=== PATIENT | male | born 1945 | race Two or more races ===

== ENCOUNTER 2016-06-28 18:58 | Inpatient (IN) | payer MEDICARE ==
[~2016-06-28] VITALS: Ht 170.2 cm; Wt 63.5 kg
[2016-06-28 20:53] VITALS: BP 110/84
[2016-06-28] MEDS ORDERED: DOCU-109 PO (22:08)
[2016-06-28] MEDS ORDERED: DEXA4TAB PO (22:10)
[2016-06-28] MEDS ORDERED: DONE10TA61 PO (22:13)
[2016-06-28] MEDS ORDERED: ESCI20TA PO (22:14)
[2016-06-28] MEDS ORDERED: OMEP40CA5 PO (22:15)
[2016-06-28] MEDS ORDERED: RANI15SY PO (22:17)
[2016-06-28] MEDS ORDERED: ACET325T9 PO (22:18)
[2016-06-28] MEDS ORDERED: DICY10CA3 PO (22:22)
[2016-06-28] MEDS ORDERED: HYOS0.3715 PO (22:31)
[2016-06-28] MEDS ORDERED: LORA1TAB PO (22:31)
[2016-06-28] MEDS ORDERED: QUET50TA5 PO (22:36)
[2016-06-28] MEDS ORDERED: BUSP7.5T PO (22:41)
[2016-06-28] MEDS ORDERED: ALPR0.5T6 PO (22:42)
[2016-06-28] MEDS ORDERED: METHYL SALICYLATE/MENTHOL TOPICAL OINTMENT 29GM TUBE. TP PRN (23:15)
--- NOTE | 2016-06-28 23:40 | PDOC ---
Exam Tor Demential Exam: Tor Note: Please also refer to the separate dictated note~for this date of service dictated separately.~Patient seen individually. Discussed the patient with Nursing staff reviewed the chart.~Reviewed interim history and current functioning. Reviewed vital signs,~Labs/ Radiology~and current medications noted below. Continue current treatment with the changes noted in the dictated addendum note Assessment: Vital Signs: Vital Signs Date Time Temp Pulse Resp B/P Pulse Ox O2 Delivery O2 Flow Rate FiO2 06/28/16 20:53 97.8 66 20 110/84 99 Room Air Current Medications: Meds: Current Medications Alprazolam (Xanax) 0.5 mg PRN Q6HRS PRN PO ANXIETY / AGITATION; Start 06/28/16 at 23:15 Donepezil HCl (Aricept) 20 mg DAILY PO ; Start 06/29/16 at 09:00 Escitalopram Oxalate (Lexapro) 20 mg DAILY PO ; Start 06/29/16 at 09:00 Lorazepam (Ativan) 1 mg PRN Q4HRS PRN PO ANXIETY / AGITATION; Start 06/28/16 at 23:15 Quetiapine Fumarate (SEROquel) 50 mg TID PO ; Start 06/29/16 at 09:00 Buspirone HCl (Buspar) 7.5 mg BID PO ; Start 06/29/16 at 09:00 Multi-Ingredient Ointment (Analgesic [place]) 1 neil PRN QID PRN TP MUSCLE PAIN; Start 06/28/16 at 23:15 Active Scripts Active Reported Alprazolam 0.5 Mg Tablet 0.5 Mg PO PRN Q6HRS PRN LAST DOSE GIVEN: DATE: TIME: NEXT DOSE DUE: DATE: TIME: Buspirone Hcl 7.5 Mg Tablet 7.5 Mg PO BID LAST DOSE GIVEN: DATE: TIME: NEXT DOSE DUE: DATE: TIME: Seroquel (Quetiapine Fumarate) 50 Mg Tablet 50 Mg PO TID LAST DOSE GIVEN: DATE: TIME: NEXT DOSE DUE: DATE: TIME: Levbid (Hyoscyamine Sulfate) 0.375 Mg Tab.er.12h 0.125 Mg PO Q2HR PRN Lorazepam 1 Mg Tablet 1 Mg PO Q4HRS PRN LAST DOSE GIVEN: DATE: TIME: NEXT DOSE DUE: DATE: TIME: Dicyclomine Hcl 10 Mg Capsule 10 Mg PO TID PRN Tylenol (Acetaminophen) 325 Mg Tablet 650 Mg PO Q6HRS PRN LAST DOSE GIVEN: DATE: TIME: NEXT DOSE DUE: DATE: TIME: Ranitidine Hcl 15 Mg/1 Ml Syrup 75 Mg PO DAILY Omeprazole 40 Mg Capsule.dr 40 Mg PO DAILY Escitalopram Oxalate 20 Mg Tablet 20 Mg PO DAILY Aricept (Donepezil Hcl) 10 Mg Tablet 20 Mg PO DAILY Dexamethasone 4 Mg Tablet 4 Mg PO DAILY Colace (Docusate Sodium) 100 Mg Capsule 50 Mg PO BID MARJ FELICIANO MD Jun 28, 2016 23:40
--- NOTE | 2016-06-28 23:54 | NUR ---
Admission: Pt [place] Gomez arrived on the unit via gurney with [facility] accompanied by staff at approximately 2030. Pt was very agitated and combative. Pt alert to self only. Pt placed in [place] until he was able to calm himself. Pt was was taken to the restroom and then given a snack and watched very closely until he was able to calm himself. Pt was allowed to fall asleep in the quiet room just off the [address] with the door open as he is more comfortable with fewer people around. Pt is resting quietly at this time. Will continue to monitor.
--- NOTE | 2016-06-29 03:19 | NUR ---
Behavior Intervention Response and Plan: BIRP Note: Behavior: Assumed Care of patient, patient located in Hallway at shift change. Patient exhibited the following behavior Agitated, Disorganized, Irritable. Brief assessment on rounds of vital signs, medication needs, lab studies, and pain. Treatment plan problems Dementia with BD, and Fall Risk. Intervention: Patient assessed and the following interventions initiated safety checks 15 Minute Checks Cognitive Assessment , Head to toe Assessment , Medications. Response: After interactions and interventions patient responded in the following manner, Sleeping , Disorganized ,Drowsy. Continue to assess behaviors and condition will continue to monitor throughout the shift as needed. Plan: Continue to monitor Master Treatment Plan for patient's progress toward short term goals of Decreased Aggression, Decreased Agitation, shelter goals to return to previous living setting vs placement. Continue to assess patient for changes in above assessment. Monitor for medication needs, pain, and safety concerns. Hourly rounding performed to ensure safe environment.
[2016-06-29] MEDS: ALPRAZolam 0.5 MG TABLET PO PRN (05:41)
--- NOTE | 2016-06-29 05:46 | NUR ---
Nursing Note: Pt agitated when he awoke. Resistive with cares. PRN given Will continue to monitor.
[2016-06-29 06:08] VITALS: BP 148/84
[2016-06-29] MEDS ORDERED: DICYCLOMINE HCL 10 MG CAPSULE PO PRN (07:15)
[2016-06-29] MEDS ORDERED: ACETAMINOPHEN 325 MG TABLET PO PRN (07:15)
[2016-06-29] MEDS ORDERED: HYOSCYAMINE 0.125 MG TAB.RAPDIS PO PRN (07:30)
--- NOTE | 2016-06-29 10:00 | NUR ---
THERAPEUTIC RECREATION GROUP NOTE TITLE :Butterflies and Roll Operator Art ACTIVITY : Arts and Crafts GOAL : Increase socialization, fine motor skills, creativity DURATION : 30 minutes RESPONSE : No participation.
[2016-06-29] MEDS: PANTOPRAZOLE 40 MG TABLET. PO SCH (10:01)
[2016-06-29] MEDS: busPIRone 5 MG TABLET. PO SCH ×2 (10:01→21:34)
[2016-06-29] MEDS: DOCUSATE SODIUM 100 MG CAPSULE PO SCH (10:01)
[2016-06-29] MEDS: DONEPEZIL HCL 10 MG TABLET PO SCH (10:01)
[2016-06-29] MEDS: ESCITALOPRAM 20 MG TABLET. PO SCH (10:02)
[2016-06-29] MEDS: FAMOTIDINE 20 MG TABLET PO SCH (10:02)
[2016-06-29] MEDS: QUEtiapine 50 MG TABLET. PO SCH ×3 (10:02→21:33)
[2016-06-29] MEDS: DEXAMETHASONE 4 MG TABLET PO SCH (10:03)
[2016-06-29 10:24] LABS: BASO # 0.1 x10^3/uL (0.0-0.2); BASO % 1 % (0-3); EOS % 0 % (0-3); HEMATOCRIT 35.2 % (39.0-53.0); HEMOGLOBIN 11.5 g/dL (13.0-17.5); LYMPH % 17 % (24-48); MEAN CORPUSCULAR HEMOGLOBIN 32 pg (25-35); MEAN CORPUSCULAR HGB CONC 33 g/dL (31-37); MEAN CORPUSCULAR VOLUME 99 fL (79-100); MONO # 0.8 x10^3/uL (0.0-1.1); MONO % 7 % (0-9); NEUT # 8.5 x10^3uL (1.8-7.7); NEUT % 75 % (31-73); PLATELET COUNT 195 x10^3/uL (140-400); RED BLOOD COUNT 3.56 x10^6/uL (4.30-5.70); RED CELL DISTRIBUTION WIDTH 15.5 % (11.5-14.5); WHITE BLOOD COUNT 11.4 x10^3/uL (4.0-11.0)
[2016-06-29 10:53] LABS: ALBUMIN 2.7 g/dL (3.4-5.0); ALBUMIN/GLOBULIN RATIO 0.7 (1.0-1.7); CALCIUM 8.6 mg/dL (8.5-10.1); GFR 74.1; POTASSIUM 4.2 mmol/L (3.5-5.1); TOTAL BILIRUBIN 0.3 mg/dL (0.2-1.0); TOTAL PROTEIN 6.7 g/dL (6.4-8.2)
[2016-06-29 10:55] LABS: VAL ACID 4 mcg/mL (50-100)
--- NOTE | 2016-06-29 11:15 | NUR ---
THERAPEUTIC RECREATION GROUP NOTE TITLE :Movement to Music: Flexibility ACTIVITY : Movement/ Exercise GOAL : Increase morale, attention, flexibility. Decrease stress/anxiety. DURATION : 40 Minutes RESPONSE : No participation.
--- NOTE | 2016-06-29 12:09 | NUR ---
Psychosocial Assessment completed w/Pt's , Selvin. Pt. born in [place], [place] and family moved throughout [place] during his childhood. Pt. grew up w/ a brother, sister and 1/2 brother. PT's parents due to father's alcoholism and Pt. went and lived w/his aunt and uncle for a year before returning to reside w/his mother. Pt. 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 PT. is to Selvin for 48+ years and has one son named Romie. Pt. has no history of alcohol or substance abuse or SI. Pt. diagnosed w/Dementia in 2008 and resided at home until March 2016 where he transitioned to [place].
--- NOTE | 2016-06-29 12:12 | NUR ---
SW reviewed Pt. insurance upon admit. Face sheet, CSNAP and intake state Pt has Medicare Primary and AARP secondary. No auth required.
--- NOTE | 2016-06-29 13:19 | NUR ---
Behavior Intervention Response and Plan: BIRP Note: Behavior: Assumed Care of patient, patient located in Hallway at shift change. Patient exhibited the following behavior Wandering, Exit Seeking, Compliant. Brief assessment on rounds of vital signs, medication needs, lab studies, and pain. Treatment plan problems . Intervention: Patient assessed and the following interventions initiated safety checks 15 Minute Checks Cognitive Assessment , Head to toe Assessment , Medications. Response: After interactions and interventions patient responded in the following manner, Calm , Compliant ,Cooperative. Continue to assess behaviors and condition will continue to monitor throughout the shift as needed. Plan: Continue to monitor Master Treatment Plan for patient's progress toward short term goals of Decreased Anxiety, Decreased Aggression, retirement goals to return to previous living setting vs placement. Continue to assess patient for changes in above assessment. Monitor for medication needs, pain, and safety concerns. Hourly rounding performed to ensure safe environment.
--- NOTE | 2016-06-29 14:00 | NUR ---
THERAPEUTIC RECREATION GROUP NOTE TITLE :Sing along with Dilcia ACTIVITY : Music GOAL : Increase socialization, elevate mood, stimulate memory DURATION : 60 Minutes RESPONSE : No participation.
[2016-06-29 16:07] VITALS: BP 148/75
[2016-06-29 19:09] LABS: T3 TOTAL 93 ng/dL (71-180); THYROXINE 4.9 ug/dL (4.5-12.0)
--- NOTE | 2016-06-29 21:38 | PDOC ---
Exam Tor Demential Exam: Tor Note: Please also refer to the separate dictated note~for this date of service dictated separately.~Patient seen individually. Discussed the patient with Nursing staff reviewed the chart.~Reviewed interim history and current functioning. Reviewed vital signs,~Labs/ Radiology~and current medications noted below. Continue current treatment with the changes noted in the dictated addendum note Assessment: Vital Signs: Vital Signs Date Time Temp Pulse Resp B/P Pulse Ox O2 Delivery O2 Flow Rate FiO2 06/29/16 16:07 98.1 88 22 148/75 99 06/28/16 20:53 Room Air I&O Intake and Output 06/29/16 07:00 # Voids 1 Labs: Laboratory Tests Test 06/29/16 09:58 White Blood Count 11.4x10^3/uL (4.0-11.0) H Red Blood Count 3.56x10^6/uL (4.30-5.70) L Hemoglobin 11.5g/dL (13.0-17.5) L Hematocrit 35.2% (39.0-53.0) L Mean Corpuscular Volume 99fL (79-100) Mean Corpuscular Hemoglobin 32pg (25-35) Mean Corpuscular Hemoglobin Concent 33g/dL (31-37) Red Cell Distribution Width 15.5% (11.5-14.5) H Platelet Count 195x10^3/uL (140-400) Neutrophils (%) (Auto) 75% (31-73) H Lymphocytes (%) (Auto) 17% (24-48) L Monocytes (%) (Auto) 7% (0-9) Eosinophils (%) (Auto) 0% (0-3) Basophils (%) (Auto) 1% (0-3) Neutrophils # (Auto) 8.5x10^3uL (1.8-7.7) H Lymphocytes # (Auto) 2.0x10^3/uL (1.0-4.8) Monocytes # (Auto) 0.8x10^3/uL (0.0-1.1) Eosinophils # (Auto) 0.0x10^3/uL (0.0-0.7) Basophils # (Auto) 0.1x10^3/uL (0.0-0.2) Sodium Level 140mmol/L (136-145) Potassium Level 4.2mmol/L (3.5-5.1) Chloride Level 104mmol/L (98-107) Carbon Dioxide Level 30mmol/L (21-32) Anion Gap 6 (6-14) Blood Urea Nitrogen 24mg/dL (8-26) Creatinine 1.0mg/dL (0.7-1.3) Estimated GFR (Cockcroft-Gault) 74.1 BUN/Creatinine Ratio 24 (6-20) H Glucose Level 103mg/dL (70-99) H Calcium Level 8.6mg/dL (8.5-10.1) Total Bilirubin 0.3mg/dL (0.2-1.0) Aspartate Amino Transferase (AST) 14U/L (15-37) L Alanine Aminotransferase (ALT) 30U/L (16-63) Alkaline Phosphatase 146U/L (46-116) H Total Protein 6.7g/dL (6.4-8.2) Albumin 2.7g/dL (3.4-5.0) L Albumin/Globulin Ratio 0.7 (1.0-1.7) L 25-Hydroxy Vitamin D Total Pending Thyroid Stimulating Hormone (TSH) 2.855uIU/mL (0.358-3.740) Thyroxine (T4) 4.9ug/dL (4.5-12.0) Total Triiodothyronine (TT3) 93ng/dL (71-180) Valproic Acid Level 4mcg/mL (50-100) L Valproic Acid Last Dose Date 06/27/16 Valproic Acid Last Dose Time 0021 RPR Titer Additional Testing Pending Current Medications: Meds: Current Medications Alprazolam (Xanax) 0.5 mg PRN Q6HRS PRN PO ANXIETY / AGITATION Last administered on 06/29/16 05:41; Start 06/28/16 at 23:15 Donepezil HCl (Aricept) 20 mg DAILY PO Last administered on 06/29/16 10:01; Start 06/29/16 at 09:00 Escitalopram Oxalate (Lexapro) 20 mg DAILY PO Last administered on 06/29/16 10 :02; Start 06/29/16 at 09:00 Lorazepam (Ativan) 1 mg PRN Q4HRS PRN PO ANXIETY / AGITATION; Start 06/28/16 at 23:15 Quetiapine Fumarate (SEROquel) 50 mg TID PO Last administered on 06/29/16 21: 33; Start 06/29/16 at 09:00 Buspirone HCl (Buspar) 7.5 mg BID PO Last administered on 06/29/16 21:34; Start 06/29/16 at 09:00 Multi-Ingredient Ointment (Analgesic [place]) 1 neil PRN QID PRN TP MUSCLE PAIN; Start 06/28/16 at 23:15 Acetaminophen (Tylenol) 650 mg PRN Q6HRS PRN PO prn; Start 06/29/16 at 07:15 Dexamethasone (Decadron) 4 mg DAILY PO Last administered on 06/29/16 10:03; Start 06/29/16 at 09:00 Dicyclomine HCl (Bentyl) 10 mg PRN TID PRN PO stomach spasm; Start 06/29/16 at 07:15 Docusate Sodium (Colace) 100 mg DAILY PO Last administered on 06/29/16 10:01; Start 06/29/16 at 09:00 Hyoscyamine (Anaspaz) 0.125 mg PRN Q2HR PRN PO SECRETIONS; Start 06/29/16 at 07 :30 Pantoprazole Sodium (Protonix) 40 mg DAILYAC PO Last administered on 06/29/16 10:01; Start 06/29/16 at 07:30 Famotidine (Pepcid) 20 mg DAILY PO Last administered on 06/29/16 10:02; Start 06/29/16 at 09:00 Active Scripts Active Reported Alprazolam 0.5 Mg Tablet 0.5 Mg PO PRN Q6HRS PRN LAST DOSE GIVEN: DATE: TIME: NEXT DOSE DUE: DATE: TIME: Buspirone Hcl 7.5 Mg Tablet 7.5 Mg PO BID LAST DOSE GIVEN: DATE: TIME: NEXT DOSE DUE: DATE: TIME: Seroquel (Quetiapine Fumarate) 50 Mg Tablet 50 Mg PO TID LAST DOSE GIVEN: DATE: TIME: NEXT DOSE DUE: DATE: TIME: Levbid (Hyoscyamine Sulfate) 0.375 Mg Tab.er.12h 0.125 Mg PO Q2HR PRN Lorazepam 1 Mg Tablet 1 Mg PO Q4HRS PRN LAST DOSE GIVEN: DATE: TIME: NEXT DOSE DUE: DATE: TIME: Dicyclomine Hcl 10 Mg Capsule 10 Mg PO TID PRN Tylenol (Acetaminophen) 325 Mg Tablet 650 Mg PO Q6HRS PRN LAST DOSE GIVEN: DATE: TIME: NEXT DOSE DUE: DATE: TIME: Ranitidine Hcl 15 Mg/1 Ml Syrup 75 Mg PO DAILY Omeprazole 40 Mg Capsule.dr 40 Mg PO DAILY Escitalopram Oxalate 20 Mg Tablet 20 Mg PO DAILY Aricept (Donepezil Hcl) 10 Mg Tablet 20 Mg PO DAILY Dexamethasone 4 Mg Tablet 4 Mg PO DAILY Colace (Docusate Sodium) 100 Mg Capsule 50 Mg PO BID Diagnosis: Problems: (1) Anxiety disorder (2) Dementia in Alzheimer's disease with delusions (3) Dementia in Alzheimer's disease with depression (4) Dementia, vascular, with delusions (5) Dementia, vascular, with depression (6) Impulse control disorder MARJ FELICIANO MD Jun 29, 2016 21:38
--- NOTE | 2016-06-30 01:21 | NUR ---
Behavior Intervention Response and Plan: BIRP Note: Behavior: Assumed Care of patient, patient located in Day Room at shift change. Patient exhibited the following behavior Calm, Disorganized, Drowsy. Brief assessment on rounds of vital signs, medication needs, lab studies, and pain. Treatment plan problems Dementai with BD and Fall Risk. Intervention: Patient assessed and the following interventions initiated safety checks 15 Minute Checks Cognitive Assessment , Head to toe Assessment , Medications. Response: After interactions and interventions patient responded in the following manner, Disorganized , Combative ,Non Compliant. Continue to assess behaviors and condition will continue to monitor throughout the shift as needed. 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 Continue to assess patient for changes in above assessment. Monitor for medication needs, pain, and safety concerns. Hourly rounding performed to ensure safe environment.
[2016-06-30 02:07] LABS: HEMOGLOBIN A1C 5.6 % (4.8-5.6)
[2016-06-30 06:26] VITALS: BP 122/67
[2016-06-30] MEDS: ALPRAZolam 0.5 MG TABLET PO PRN ×2 (07:45→20:06)
[2016-06-30] MEDS: FAMOTIDINE 20 MG TABLET PO SCH ×2 (07:45→20:02)
[2016-06-30] MEDS: LORazepam 1 MG TABLET PO PRN (07:45)
[2016-06-30] MEDS: PANTOPRAZOLE 40 MG TABLET. PO SCH ×2 (07:45→19:59)
[2016-06-30] MEDS: DOCUSATE SODIUM 100 MG CAPSULE PO SCH ×2 (07:45→20:02)
[2016-06-30] MEDS: ESCITALOPRAM 20 MG TABLET. PO SCH ×2 (07:46→20:00)
[2016-06-30] MEDS: QUEtiapine 50 MG TABLET. PO SCH ×2 (07:46→13:17)
[2016-06-30] MEDS: DONEPEZIL HCL 10 MG TABLET PO SCH ×2 (07:46→19:59)
[2016-06-30] MEDS: busPIRone 5 MG TABLET. PO SCH ×2 (07:47→20:00)
[2016-06-30] MEDS: DEXAMETHASONE 4 MG TABLET PO SCH (09:30)
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
--- NOTE | 2016-06-30 14:07 | NUR ---
Behavior Intervention Response and Plan: BIRP Note: Behavior: Assumed Care of patient, patient located in Patient Room at shift change. Patient exhibited the following behavior Disorganized, Interactive, Cooperative. Brief assessment on rounds of vital signs, medication needs, lab studies, and pain. Treatment plan problems . Intervention: Patient assessed and the following interventions initiated safety checks 15 Minute Checks Head to toe Assessment , Medications , Oral Hydration. Response: After interactions and interventions patient responded in the following manner, Compulsive , Social ,Compliant. Continue to assess behaviors and condition will continue to monitor throughout the shift as needed. Plan: Continue to monitor Master Treatment Plan for patient's progress toward short term goals of No harm To self/ others, Decreased Aggression, jail goals to return to previous living setting vs placement. Continue to assess patient for changes in above assessment. Monitor for medication needs, pain, and safety concerns. Hourly rounding performed to ensure safe environment.
[2016-06-30 15:50] VITALS: BP 110/52
--- NOTE | 2016-06-30 19:50 | NUR ---
Nursing Note: Pt very combative w/ care. Each time it is necessary to change pt's clothing due to incontinence, pt becomes highly agitated/ combative. PRN given. Will continue to monitor.
[2016-06-30] MEDS: QUEtiapine 25 MG TABLET. PO SCH (20:04)
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
--- NOTE | 2016-06-30 21:03 | PDOC ---
Exam Tor Demential Exam: Tor Note: Please also refer to the separate dictated note~for this date of service dictated separately.~Patient seen individually. Discussed the patient with Nursing staff reviewed the chart.~Reviewed interim history and current functioning. Reviewed vital signs,~Labs/ Radiology~and current medications noted below. Continue current treatment with the changes noted in the dictated addendum note Assessment: Vital Signs: Vital Signs Date Time Temp Pulse Resp B/P Pulse Ox O2 Delivery O2 Flow Rate FiO2 06/30/16 15:50 97.8 78 18 110/52 06/30/16 06:26 96 06/28/16 20:53 Room Air I&O Intake and Output 06/30/16 07:00 Intake Total 480 ml Balance 480 ml Intake Oral 480 ml Labs: Laboratory Tests Test 06/30/16 09:56 Triglycerides Level 79mg/dL (0-150) Cholesterol Level 200mg/dL (0-200) LDL Cholesterol, Calculated 130mg/dL (0-100) H VLDL Cholesterol, Calculated 15mg/dL (0-40) Non-HDL Cholesterol Calculated 145mg/dL (0-129) H HDL Cholesterol 55mg/dL (40-60) Cholesterol/HDL Ratio 3.0 Current Medications: Meds: Current Medications Alprazolam (Xanax) 0.5 mg PRN Q6HRS PRN PO ANXIETY / AGITATION Last administered on 06/30/16 20:06; Start 06/28/16 at 23:15 Donepezil HCl (Aricept) 20 mg DAILY PO Last administered on 06/30/16 19:59; Start 06/29/16 at 09:00 Escitalopram Oxalate (Lexapro) 20 mg DAILY PO Last administered on 06/30/16 20 :00; Start 06/29/16 at 09:00 Lorazepam (Ativan) 1 mg PRN Q4HRS PRN PO ANXIETY / AGITATION Last administered on 06/30/16 07:45; Start 06/28/16 at 23:15 Quetiapine Fumarate (SEROquel) 50 mg TID PO Last administered on 06/30/16 13: 17; Start 06/29/16 at 09:00; Stop 06/30/16 at 18:08; Status DC Buspirone HCl (Buspar) 7.5 mg BID PO Last administered on 06/30/16 20:00; Start 06/29/16 at 09:00 Multi-Ingredient Ointment (Analgesic [place]) 1 neil PRN QID PRN TP MUSCLE PAIN; Start 06/28/16 at 23:15 Acetaminophen (Tylenol) 650 mg PRN Q6HRS PRN PO prn Last administered on 07:48; Start 06/29/16 at 07:15 Dexamethasone (Decadron) 4 mg DAILY PO Last administered on 06/30/16 09:30; Start 06/29/16 at 09:00 Dicyclomine HCl (Bentyl) 10 mg PRN TID PRN PO stomach spasm Last administered on 06/30/16 07:45; Start 06/29/16 at 07:15 Docusate Sodium (Colace) 100 mg DAILY PO Last administered on 06/30/16 20:02; Start 06/29/16 at 09:00 Hyoscyamine (Anaspaz) 0.125 mg PRN Q2HR PRN PO SECRETIONS Last administered on 06/30/16 07:46; Start 06/29/16 at 07:30 Pantoprazole Sodium (Protonix) 40 mg DAILYAC PO Last administered on 06/30/16 19:59; Start 06/29/16 at 07:30 Famotidine (Pepcid) 20 mg DAILY PO Last administered on 06/30/16 20:02; Start 06/29/16 at 09:00 Quetiapine Fumarate (SEROquel) 25 mg BID92 PO ; Start 07/01/16 at 09:00 Quetiapine Fumarate (SEROquel) 50 mg QHS PO Last administered on 06/30/16 20: 04; Start 06/30/16 at 21:00 Active Scripts Active Reported Alprazolam 0.5 Mg Tablet 0.5 Mg PO PRN Q6HRS PRN LAST DOSE GIVEN: DATE: TIME: NEXT DOSE DUE: DATE: TIME: Buspirone Hcl 7.5 Mg Tablet 7.5 Mg PO BID LAST DOSE GIVEN: DATE: TIME: NEXT DOSE DUE: DATE: TIME: Seroquel (Quetiapine Fumarate) 50 Mg Tablet 50 Mg PO TID LAST DOSE GIVEN: DATE: TIME: NEXT DOSE DUE: DATE: TIME: Levbid (Hyoscyamine Sulfate) 0.375 Mg Tab.er.12h 0.125 Mg PO Q2HR PRN Lorazepam 1 Mg Tablet 1 Mg PO Q4HRS PRN LAST DOSE GIVEN: DATE: TIME: NEXT DOSE DUE: DATE: TIME: Dicyclomine Hcl 10 Mg Capsule 10 Mg PO TID PRN Tylenol (Acetaminophen) 325 Mg Tablet 650 Mg PO Q6HRS PRN LAST DOSE GIVEN: DATE: TIME: NEXT DOSE DUE: DATE: TIME: Ranitidine Hcl 15 Mg/1 Ml Syrup 75 Mg PO DAILY Omeprazole 40 Mg Capsule.dr 40 Mg PO DAILY Escitalopram Oxalate 20 Mg Tablet 20 Mg PO DAILY Aricept (Donepezil Hcl) 10 Mg Tablet 20 Mg PO DAILY Dexamethasone 4 Mg Tablet 4 Mg PO DAILY Colace (Docusate Sodium) 100 Mg Capsule 50 Mg PO BID Diagnosis: Problems: (1) Anxiety disorder (2) Dementia in Alzheimer's disease with delusions (3) Dementia in Alzheimer's disease with depression (4) Dementia, vascular, with delusions (5) Dementia, vascular, with depression (6) Impulse control disorder MARJ FELICIANO MD Jun 30, 2016 21:02
--- NOTE | 2016-06-30 23:56 | NUR ---
Behavior Intervention Response and Plan: BIRP Note: Behavior: Assumed Care of patient, patient located in Patient Room at shift change. Patient exhibited the following behavior Disorganized, Resistive, Non Compliant. Brief assessment on rounds of vital signs, medication needs, lab studies, and pain. Treatment plan problems Dementia with BD and Fall Risk. Intervention: Patient assessed and the following interventions initiated safety checks 15 Minute Checks Cognitive Assessment , Head to toe Assessment , Medications. Response: After interactions and interventions patient responded in the following manner, Disorganized , Compliant ,Restless. Continue to assess behaviors and condition will continue to monitor throughout the shift as needed. Plan: Continue to monitor Master Treatment Plan for patient's progress toward short term goals of Decreased Agitation, Decreased Aggression, shelter goals to return to previous living setting vs placement. Continue to assess patient for changes in above assessment. Monitor for medication needs, pain, and safety concerns. Hourly rounding performed to ensure safe environment.
[2016-07-01 06:38] VITALS: BP 151/76
[2016-07-01] MEDS: busPIRone 5 MG TABLET. PO SCH ×2 (09:47→19:20)
[2016-07-01] MEDS: DEXAMETHASONE 4 MG TABLET PO SCH (09:48)
[2016-07-01] MEDS: QUEtiapine 25 MG TABLET. PO SCH ×3 (09:50→19:20)
--- NOTE | 2016-07-01 09:50 | NUR ---
Behavior Intervention Response and Plan: BIRP Note: Behavior: Assumed Care of patient, patient located in Day Room at shift change. Patient exhibited the following behavior Interactive, Calm, Disorganized. Brief assessment on rounds of vital signs, medication needs, lab studies, and pain. Treatment plan problems 1 & 2. Intervention: Patient assessed and the following interventions initiated safety checks 15 Minute Checks Cognitive Assessment , Head to toe Assessment , Medications. Response: After interactions and interventions patient responded in the following manner, Calm , Compliant ,Cooperative. Continue to assess behaviors and condition will continue to monitor throughout the shift as needed. Plan: Continue to monitor Master Treatment Plan for patient's progress toward short term goals of Decreased Agitation, Medication Compliance, joint terminal attack controller goals to return to previous living setting vs placement. Continue to assess patient for changes in above assessment. Monitor for medication needs, pain, and safety concerns. Hourly rounding performed to ensure safe environment.
--- NOTE | 2016-07-01 12:58 | NUR ---
PEDRO spoke w/Julio César, Oil Field Pumper at [facility] [phone] regarding target dc date. Julio César will fax over Hospice information to be resumed at or. PEDRO to contact Julio César early next week to arrange for onsite readmit.
--- NOTE | 2016-07-01 13:30 | NUR ---
Attempted to meet and complete Activity Therapy Assessment; however, Pt. was sleeping. DIRECTOR OF PHYSICAL SECURITY will try again tomorrow.
--- NOTE | 2016-07-01 14:00 | NUR ---
THERAPEUTIC RECREATION GROUP NOTE TITLE :Balloon Bop with Noodles ACTIVITY : Activities and Games GOAL : Increase socialization and alertness. Maintain/improve mental and physical functioning. DURATION : 30 minutes RESPONSE : No participation. Pt. sleeping in day room. The balloon accidently bumped Pt. on his head. Pt. opened eyes and said "take it easy." Balloon bumped him again and he opened eyes asking "now why do you have to keep doing that" with a frustrated tone to his voice. Pt. was reassured and closed his eyes and remained laying on the sofa in the day room the entire time the activity was going on.
--- NOTE | 2016-07-01 15:05 | NUR ---
Patient became combative when Ecsie attemted to obtain vital signs. Patient removed from dayroom, allowed to wander in hallways until calmed down. Will continue to monitor for behaviors.
--- NOTE | 2016-07-01 15:37 | NUR ---
Patient lying down in bed in empty room, appears withdrawn but responded to Kita's questions. will continue to monitor.
[2016-07-01] MEDS: LORazepam 1 MG TABLET PO PRN (19:20)
--- NOTE | 2016-07-01 19:25 | NUR ---
Pt was attempting to urinate on floor, RN attempted to redirect Pt into the bathroom. Pt became agitated and combative. Pt stated "where's my gun". PRN Ativan administered as ordered crushed in pudding at this time.
--- NOTE | 2016-07-01 21:07 | PDOC ---
Exam Tor Demential Exam: Tor Note: Please also refer to the separate dictated note~for this date of service dictated separately.~Patient seen individually. Discussed the patient with Nursing staff reviewed the chart.~Reviewed interim history and current functioning. Reviewed vital signs,~Labs/ Radiology~and current medications noted below. Continue current treatment with the changes noted in the dictated addendum note Assessment: Vital Signs: Vital Signs Date Time Temp Pulse Resp B/P Pulse Ox O2 Delivery O2 Flow Rate FiO2 07/01/16 15:46 97.7 07/01/16 06:38 20 151/76 06/30/16 15:50 78 06/30/16 06:26 96 06/28/16 20:53 Room Air I&O Intake and Output 07/01/16 07:00 Intake Total 840 ml Balance 840 ml Intake Oral 840 ml Current Medications: Meds: Current Medications Alprazolam (Xanax) 0.5 mg PRN Q6HRS PRN PO ANXIETY / AGITATION Last administered on 06/30/16 20:06; Start 06/28/16 at 23:15 Donepezil HCl (Aricept) 20 mg DAILY PO Last administered on 06/30/16 19:59; Start 06/29/16 at 09:00 Escitalopram Oxalate (Lexapro) 20 mg DAILY PO Last administered on 06/30/16 20 :00; Start 06/29/16 at 09:00 Lorazepam (Ativan) 1 mg PRN Q4HRS PRN PO ANXIETY / AGITATION Last administered on 07/01/16 19:20; Start 06/28/16 at 23:15 Quetiapine Fumarate (SEROquel) 50 mg TID PO Last administered on 06/30/16 13: 17; Start 06/29/16 at 09:00; Stop 06/30/16 at 18:08; Status DC Buspirone HCl (Buspar) 7.5 mg BID PO Last administered on 07/01/16 19:20; Start 06/29/16 at 09:00 Multi-Ingredient Ointment (Analgesic [place]) 1 neil PRN QID PRN TP MUSCLE PAIN; Start 06/28/16 at 23:15 Acetaminophen (Tylenol) 650 mg PRN Q6HRS PRN PO prn Last administered on 07:48; Start 06/29/16 at 07:15 Dexamethasone (Decadron) 4 mg DAILY PO Last administered on 07/01/16 09:48; Start 06/29/16 at 09:00 Dicyclomine HCl (Bentyl) 10 mg PRN TID PRN PO stomach spasm Last administered on 06/30/16 07:45; Start 06/29/16 at 07:15 Docusate Sodium (Colace) 100 mg DAILY PO Last administered on 06/30/16 20:02; Start 06/29/16 at 09:00 Hyoscyamine (Anaspaz) 0.125 mg PRN Q2HR PRN PO SECRETIONS Last administered on 06/30/16 07:46; Start 06/29/16 at 07:30 Pantoprazole Sodium (Protonix) 40 mg DAILYAC PO Last administered on 06/30/16 19:59; Start 06/29/16 at 07:30 Famotidine (Pepcid) 20 mg DAILY PO Last administered on 06/30/16 20:02; Start 06/29/16 at 09:00 Quetiapine Fumarate (SEROquel) 25 mg BID92 PO Last administered on 07/01/16 14 :03; Start 07/01/16 at 09:00 Quetiapine Fumarate (SEROquel) 50 mg QHS PO Last administered on 07/01/16 19: 20; Start 06/30/16 at 21:00 Active Scripts Active Reported Alprazolam 0.5 Mg Tablet 0.5 Mg PO PRN Q6HRS PRN LAST DOSE GIVEN: DATE: TIME: NEXT DOSE DUE: DATE: TIME: Buspirone Hcl 7.5 Mg Tablet 7.5 Mg PO BID LAST DOSE GIVEN: DATE: TIME: NEXT DOSE DUE: DATE: TIME: Seroquel (Quetiapine Fumarate) 50 Mg Tablet 50 Mg PO TID LAST DOSE GIVEN: DATE: TIME: NEXT DOSE DUE: DATE: TIME: Levbid (Hyoscyamine Sulfate) 0.375 Mg Tab.er.12h 0.125 Mg PO Q2HR PRN Lorazepam 1 Mg Tablet 1 Mg PO Q4HRS PRN LAST DOSE GIVEN: DATE: TIME: NEXT DOSE DUE: DATE: TIME: Dicyclomine Hcl 10 Mg Capsule 10 Mg PO TID PRN Tylenol (Acetaminophen) 325 Mg Tablet 650 Mg PO Q6HRS PRN LAST DOSE GIVEN: DATE: TIME: NEXT DOSE DUE: DATE: TIME: Ranitidine Hcl 15 Mg/1 Ml Syrup 75 Mg PO DAILY Omeprazole 40 Mg Capsule.dr 40 Mg PO DAILY Escitalopram Oxalate 20 Mg Tablet 20 Mg PO DAILY Aricept (Donepezil Hcl) 10 Mg Tablet 20 Mg PO DAILY Dexamethasone 4 Mg Tablet 4 Mg PO DAILY Colace (Docusate Sodium) 100 Mg Capsule 50 Mg PO BID Diagnosis: Problems: (1) Anxiety disorder (2) Dementia in Alzheimer's disease with delusions (3) Dementia in Alzheimer's disease with depression (4) Dementia, vascular, with delusions (5) Dementia, vascular, with depression (6) Impulse control disorder MARJ FELICIANO MD Jul 01, 2016 21:07
--- NOTE | 2016-07-01 22:51 | NUR ---
Behavior Intervention Response and Plan: BIRP Note: Behavior: Assumed Care of patient, patient located in Hallway at shift change. Patient exhibited the following behavior Restless, Wandering, Irritable. Brief assessment on rounds of vital signs, medication needs, lab studies, and pain. Treatment plan problems 1 and 2. Intervention: Patient assessed and the following interventions initiated safety checks 15 Minute Checks Cognitive Assessment , Head to toe Assessment , Medications. Response: After interactions and interventions patient responded in the following manner, Wandering , Compliant ,Resistive. Continue to assess behaviors and condition will continue to monitor throughout the shift as needed. Plan: Continue to monitor Master Treatment Plan for patient's progress toward short term goals of Decreased Agitation, Decreased Aggression, terminal supervisor goals to return to previous living setting vs placement. Continue to assess patient for changes in above assessment. Monitor for medication needs, pain, and safety concerns. Hourly rounding performed to ensure safe environment.
[2016-07-02 05:43] VITALS: BP 144/84
[2016-07-02] MEDS: DOCUSATE SODIUM 100 MG CAPSULE PO SCH (07:38)
[2016-07-02] MEDS: PANTOPRAZOLE 40 MG TABLET. PO SCH (07:38)
[2016-07-02] MEDS: QUEtiapine 25 MG TABLET. PO SCH ×3 (07:39→19:11)
[2016-07-02] MEDS: DONEPEZIL HCL 10 MG TABLET PO SCH (07:39)
[2016-07-02] MEDS: FAMOTIDINE 20 MG TABLET PO SCH (07:39)
[2016-07-02] MEDS: ESCITALOPRAM 20 MG TABLET. PO SCH (07:39)
[2016-07-02] MEDS: busPIRone 5 MG TABLET. PO SCH (07:39)
[2016-07-02] MEDS: DEXAMETHASONE 4 MG TABLET PO SCH (07:40)
--- NOTE | 2016-07-02 09:30 | NUR ---
Behavior Intervention Response and Plan: BIRP Note: Behavior: Assumed Care of patient, patient located in Day Room at shift change. Patient exhibited the following behavior Wandering, Calm, Disorganized. Brief assessment on rounds of vital signs, medication needs, lab studies, and pain. Treatment plan problems 1 & 2. Intervention: Patient assessed and the following interventions initiated safety checks 15 Minute Checks Cognitive Assessment , Head to toe Assessment , Medications. Response: After interactions and interventions patient responded in the following manner, Calm , Compliant ,Cooperative. Continue to assess behaviors and condition will continue to monitor throughout the shift as needed. Plan: Continue to monitor Master Treatment Plan for patient's progress toward short term goals of Decreased Agitation, Medication Compliance, terminal superintendent goals to return to previous living setting vs placement. Continue to assess patient for changes in above assessment. Monitor for medication needs, pain, and safety concerns. Hourly rounding performed to ensure safe environment.
--- NOTE | 2016-07-02 10:20 | NUR ---
Attempted to meet and complete Activity Therapy Assessment; however, Pt. was sleeping. SENIOR SAFETY SUPPORT MANAGER will try later today or tomorrow.
[2016-07-02] MEDS: busPIRone 15 MG TABLET. PO SCH (19:48)
--- NOTE | 2016-07-02 20:55 | PDOC ---
Exam Tor Demential Exam: Tor Note: Please also refer to the separate dictated note~for this date of service dictated separately.~Patient seen individually. Discussed the patient with Nursing staff reviewed the chart.~Reviewed interim history and current functioning. Reviewed vital signs,~Labs/ Radiology~and current medications noted below. Continue current treatment with the changes noted in the dictated addendum note Assessment: Vital Signs: Vital Signs Date Time Temp Pulse Resp B/P Pulse Ox O2 Delivery O2 Flow Rate FiO2 07/02/16 05:43 96.9 59 18 144/84 100 Room Air I&O Intake and Output 07/02/16 07:00 Intake Total 1080 ml Balance 1080 ml Intake Oral 1080 ml # Voids 4 # Bowel Movements 2 Current Medications: Meds: Current Medications Alprazolam (Xanax) 0.5 mg PRN Q6HRS PRN PO ANXIETY / AGITATION Last administered on 06/30/16 20:06; Start 06/28/16 at 23:15 Donepezil HCl (Aricept) 20 mg DAILY PO Last administered on 07/02/16 07:39; Start 06/29/16 at 09:00 Escitalopram Oxalate (Lexapro) 20 mg DAILY PO Last administered on 07/02/16 07 :39; Start 06/29/16 at 09:00 Lorazepam (Ativan) 1 mg PRN Q4HRS PRN PO ANXIETY / AGITATION Last administered on 07/01/16 19:20; Start 06/28/16 at 23:15 Quetiapine Fumarate (SEROquel) 50 mg TID PO Last administered on 06/30/16 13: 17; Start 06/29/16 at 09:00; Stop 06/30/16 at 18:08; Status DC Buspirone HCl (Buspar) 7.5 mg BID PO Last administered on 07/02/16 07:39; Start 06/29/16 at 09:00; Stop 07/02/16 at 17:55; Status DC Multi-Ingredient Ointment (Analgesic [place]) 1 enil PRN QID PRN TP MUSCLE PAIN; Start 06/28/16 at 23:15 Acetaminophen (Tylenol) 650 mg PRN Q6HRS PRN PO prn Last administered on 07:48; Start 06/29/16 at 07:15 Dexamethasone (Decadron) 4 mg DAILY PO Last administered on 07/02/16 07:40; Start 06/29/16 at 09:00 Dicyclomine HCl (Bentyl) 10 mg PRN TID PRN PO stomach spasm Last administered on 06/30/16 07:45; Start 06/29/16 at 07:15 Docusate Sodium (Colace) 100 mg DAILY PO Last administered on 07/02/16 07:38; Start 06/29/16 at 09:00 Hyoscyamine (Anaspaz) 0.125 mg PRN Q2HR PRN PO SECRETIONS Last administered on 06/30/16 07:46; Start 06/29/16 at 07:30 Pantoprazole Sodium (Protonix) 40 mg DAILYAC PO Last administered on 07/02/16 07:38; Start 06/29/16 at 07:30 Famotidine (Pepcid) 20 mg DAILY PO Last administered on 07/02/16 07:39; Start 06/29/16 at 09:00 Quetiapine Fumarate (SEROquel) 25 mg BID92 PO Last administered on 07/02/16 14 :31; Start 07/01/16 at 09:00 Quetiapine Fumarate (SEROquel) 50 mg QHS PO Last administered on 07/02/16 19: 11; Start 06/30/16 at 21:00 Buspirone HCl (Buspar) 7.5 mg TID PO Last administered on 07/02/16 19:48; Start 07/02/16 at 21:00 Active Scripts Active Reported Alprazolam 0.5 Mg Tablet 0.5 Mg PO PRN Q6HRS PRN LAST DOSE GIVEN: DATE: TIME: NEXT DOSE DUE: DATE: TIME: Buspirone Hcl 7.5 Mg Tablet 7.5 Mg PO BID LAST DOSE GIVEN: DATE: TIME: NEXT DOSE DUE: DATE: TIME: Seroquel (Quetiapine Fumarate) 50 Mg Tablet 50 Mg PO TID LAST DOSE GIVEN: DATE: TIME: NEXT DOSE DUE: DATE: TIME: Levbid (Hyoscyamine Sulfate) 0.375 Mg Tab.er.12h 0.125 Mg PO Q2HR PRN Lorazepam 1 Mg Tablet 1 Mg PO Q4HRS PRN LAST DOSE GIVEN: DATE: TIME: NEXT DOSE DUE: DATE: TIME: Dicyclomine Hcl 10 Mg Capsule 10 Mg PO TID PRN Tylenol (Acetaminophen) 325 Mg Tablet 650 Mg PO Q6HRS PRN LAST DOSE GIVEN: DATE: TIME: NEXT DOSE DUE: DATE: TIME: Ranitidine Hcl 15 Mg/1 Ml Syrup 75 Mg PO DAILY Omeprazole 40 Mg Capsule.dr 40 Mg PO DAILY Escitalopram Oxalate 20 Mg Tablet 20 Mg PO DAILY Aricept (Donepezil Hcl) 10 Mg Tablet 20 Mg PO DAILY Dexamethasone 4 Mg Tablet 4 Mg PO DAILY Colace (Docusate Sodium) 100 Mg Capsule 50 Mg PO BID Diagnosis: Problems: (1) Anxiety disorder (2) Dementia in Alzheimer's disease with delusions (3) Dementia in Alzheimer's disease with depression (4) Dementia, vascular, with delusions (5) Dementia, vascular, with depression (6) Impulse control disorder MARJ FELICIANO MD Jul 02, 2016 20:55
--- NOTE | 2016-07-03 03:13 | NUR ---
Behavior Intervention Response and Plan: BIRP Note: Behavior: Assumed Care of patient, patient located in Hallway at shift change. Patient exhibited the following behavior Wandering, Interactive, Calm. Brief assessment on rounds of vital signs, medication needs, lab studies, and pain. Treatment plan problems 1 and 2. Intervention: Patient assessed and the following interventions initiated safety checks 15 Minute Checks Cognitive Assessment , Head to toe Assessment , Medications. Response: After interactions and interventions patient responded in the following manner, Irritable , Compliant ,Resistive. Continue to assess behaviors and condition will continue to monitor throughout the shift as needed. Plan: Continue to monitor Master Treatment Plan for patient's progress toward short term goals of Decreased Agitation, Decreased Aggression, intermediate project manager goals to return to previous living setting vs placement. Continue to assess patient for changes in above assessment. Monitor for medication needs, pain, and safety concerns. Hourly rounding performed to ensure safe environment.
--- NOTE | 2016-07-03 04:02 | PN ---
DATE: 06/30/2016 PSYCHIATRIC PROGRESS NOTE This is late entry of 06/30/2016, covers elements not covered in my initial note. SUBJECTIVE: Per nursing report, the patient remains tired, withdrawn, at times combative with cares, grabbing at staff, at times noted to be "handsy." REVIEW OF SYSTEMS: No CV, , pulmonary, eye, ENT system symptoms on review as I met with him in his room. Reliability poor. MENTAL STATUS EXAMINATION: Oriented to himself. Insight, judgment, recent and remote memory, attention, concentration, fund of knowledge poor, consistent with his diagnosis. LABORATORY DATA: Reviewed. DIAGNOSES: Unchanged from initial note. Major neurocognitive disorder, Alzheimer, vascular with depression, delusion, behavioral disturbance; anxiety disorder, unspecified; impulse control disorder, unspecified. PLAN: Reduce Seroquel from 50 mg t.i.d. to 25 mg b.i.d., 50 mg at bedtime, Lexapro we will continue 20 mg a day, Aricept 10 mg a day, Ativan p.r.n., BuSpar 7.5 b.i.d., Xanax p.r.n. Adjust further as clinically indicated. MARJ FELICIANO MD DR: STACEY/fe JOB#: [id number] / [id number]
--- NOTE | 2016-07-03 04:50 | PN ---
DATE: 07/01/2016 PSYCHIATRIC PROGRESS NOTE This is late entry of 07/01/2016, covers elements not covered in my initial note. SUBJECTIVE: The patient was staffed at treatment team meeting with the entire team on morning of 07/01/2016 and the patient's son, Romie, attended. We reviewed the patient's history at length. He was initially living at home, then was hospitalized, and then was at [facility] on hospice care for the past 2-1/2 months or so. He has been grabbing at staff, confused, combative with cares, appetite about 70%, takes meds in pudding. REVIEW OF SYSTEMS: No CV, , pulmonary, eye, ENT system symptoms on review. Reliability poor. MENTAL STATUS EXAMINATION: Oriented to himself. Insight, judgment, recent and remote memory, attention, concentration, fund of knowledge poor, consistent with his diagnosis mentioned in my initial note. PLAN: Continue his current psychotropics mentioned in my initial note. Seroquel has been reduced, maintain BuSpar, Xanax, Aricept, Lexapro along with the Ativan p.r.n. Adjust further as clinically indicated. MARJ FELICIANO MD DR: STACEY/fe JOB#: [id number] / [id number]
[2016-07-03 05:53] VITALS: BP 147/80
[2016-07-03] MEDS: ESCITALOPRAM 20 MG TABLET. PO SCH (09:27)
[2016-07-03] MEDS: busPIRone 15 MG TABLET. PO SCH ×3 (09:27→19:26)
[2016-07-03] MEDS: DOCUSATE SODIUM 100 MG CAPSULE PO SCH (09:27)
[2016-07-03] MEDS: QUEtiapine 25 MG TABLET. PO SCH ×3 (09:27→19:26)
[2016-07-03] MEDS: DONEPEZIL HCL 10 MG TABLET PO SCH (09:27)
[2016-07-03] MEDS: FAMOTIDINE 20 MG TABLET PO SCH (09:27)
[2016-07-03] MEDS: PANTOPRAZOLE 40 MG TABLET. PO SCH (09:28)
[2016-07-03] MEDS: DEXAMETHASONE 4 MG TABLET PO SCH (09:30)
--- NOTE | 2016-07-03 15:42 | NUR ---
Behavior Intervention Response and Plan: BIRP Note: Behavior: Assumed Care of patient, patient located in Hallway at shift change. Patient exhibited the following behavior Wandering, Restless, Calm. Brief assessment on rounds of vital signs, medication needs, lab studies, and pain. Treatment plan problems 1 and 2. Intervention: Patient assessed and the following interventions initiated safety checks 15 Minute Checks Cognitive Assessment , Head to toe Assessment , Medications. Response: After interactions and interventions patient responded in the following manner, Wandering , Disorganized ,Compliant. Continue to assess behaviors and condition will continue to monitor throughout the shift as needed. Plan: Continue to monitor Master Treatment Plan for patient's progress toward short term goals of Decreased Agitation, Decreased Aggression, foreign languages department chair goals to return to previous living setting vs placement. Continue to assess patient for changes in above assessment. Monitor for medication needs, pain, and safety concerns. Hourly rounding performed to ensure safe environment.
[2016-07-03 16:21] VITALS: BP 136/73
[2016-07-03] MEDS: LORazepam 1 MG TABLET PO PRN (20:48)
--- NOTE | 2016-07-03 20:50 | NUR ---
Pt with escalating agitation, becoming combative with staff when attempting to assist pt with shower. PRN Ativan administered as ordered at this time.
--- NOTE | 2016-07-03 22:22 | PDOC ---
Exam Tor Demential Exam: Tor Note: Please also refer to the separate dictated note~for this date of service dictated separately.~Patient seen individually. Discussed the patient with Nursing staff reviewed the chart.~Reviewed interim history and current functioning. Reviewed vital signs,~Labs/ Radiology~and current medications noted below. Continue current treatment with the changes noted in the dictated addendum note Assessment: Vital Signs: Vital Signs Date Time Temp Pulse Resp B/P Pulse Ox O2 Delivery O2 Flow Rate FiO2 07/03/16 16:21 97.9 83 18 136/73 96 07/02/16 05:43 Room Air I&O Intake and Output 07/03/16 07:00 Intake Total 940 ml Balance 940 ml Intake Oral 940 ml # Bowel Movements 1 Current Medications: Meds: Current Medications Alprazolam (Xanax) 0.5 mg PRN Q6HRS PRN PO ANXIETY / AGITATION Last administered on 06/30/16 20:06; Start 06/28/16 at 23:15 Donepezil HCl (Aricept) 20 mg DAILY PO Last administered on 07/03/16 09:27; Start 06/29/16 at 09:00 Escitalopram Oxalate (Lexapro) 20 mg DAILY PO Last administered on 07/03/16 09 :27; Start 06/29/16 at 09:00 Lorazepam (Ativan) 1 mg PRN Q4HRS PRN PO ANXIETY / AGITATION Last administered on 07/03/16 20:48; Start 06/28/16 at 23:15 Quetiapine Fumarate (SEROquel) 50 mg TID PO Last administered on 06/30/16 13: 17; Start 06/29/16 at 09:00; Stop 06/30/16 at 18:08; Status DC Buspirone HCl (Buspar) 7.5 mg BID PO Last administered on 07/02/16 07:39; Start 06/29/16 at 09:00; Stop 07/02/16 at 17:55; Status DC Multi-Ingredient Ointment (Analgesic [place]) 1 neil PRN QID PRN TP MUSCLE PAIN; Start 06/28/16 at 23:15 Acetaminophen (Tylenol) 650 mg PRN Q6HRS PRN PO prn Last administered on 07:48; Start 06/29/16 at 07:15 Dexamethasone (Decadron) 4 mg DAILY PO Last administered on 07/03/16 09:30; Start 06/29/16 at 09:00 Dicyclomine HCl (Bentyl) 10 mg PRN TID PRN PO stomach spasm Last administered on 06/30/16 07:45; Start 06/29/16 at 07:15 Docusate Sodium (Colace) 100 mg DAILY PO Last administered on 07/03/16 09:27; Start 06/29/16 at 09:00 Hyoscyamine (Anaspaz) 0.125 mg PRN Q2HR PRN PO SECRETIONS Last administered on 06/30/16 07:46; Start 06/29/16 at 07:30 Pantoprazole Sodium (Protonix) 40 mg DAILYAC PO Last administered on 07/03/16 09:28; Start 06/29/16 at 07:30 Famotidine (Pepcid) 20 mg DAILY PO Last administered on 07/03/16 09:27; Start 06/29/16 at 09:00 Quetiapine Fumarate (SEROquel) 25 mg BID92 PO Last administered on 07/03/16 14 :13; Start 07/01/16 at 09:00 Quetiapine Fumarate (SEROquel) 50 mg QHS PO Last administered on 07/03/16 19: 26; Start 06/30/16 at 21:00 Buspirone HCl (Buspar) 7.5 mg TID PO Last administered on 07/03/16 19:26; Start 07/02/16 at 21:00 Active Scripts Active Reported Alprazolam 0.5 Mg Tablet 0.5 Mg PO PRN Q6HRS PRN LAST DOSE GIVEN: DATE: TIME: NEXT DOSE DUE: DATE: TIME: Buspirone Hcl 7.5 Mg Tablet 7.5 Mg PO BID LAST DOSE GIVEN: DATE: TIME: NEXT DOSE DUE: DATE: TIME: Seroquel (Quetiapine Fumarate) 50 Mg Tablet 50 Mg PO TID LAST DOSE GIVEN: DATE: TIME: NEXT DOSE DUE: DATE: TIME: Levbid (Hyoscyamine Sulfate) 0.375 Mg Tab.er.12h 0.125 Mg PO Q2HR PRN Lorazepam 1 Mg Tablet 1 Mg PO Q4HRS PRN LAST DOSE GIVEN: DATE: TIME: NEXT DOSE DUE: DATE: TIME: Dicyclomine Hcl 10 Mg Capsule 10 Mg PO TID PRN Tylenol (Acetaminophen) 325 Mg Tablet 650 Mg PO Q6HRS PRN LAST DOSE GIVEN: DATE: TIME: NEXT DOSE DUE: DATE: TIME: Ranitidine Hcl 15 Mg/1 Ml Syrup 75 Mg PO DAILY Omeprazole 40 Mg Capsule.dr 40 Mg PO DAILY Escitalopram Oxalate 20 Mg Tablet 20 Mg PO DAILY Aricept (Donepezil Hcl) 10 Mg Tablet 20 Mg PO DAILY Dexamethasone 4 Mg Tablet 4 Mg PO DAILY Colace (Docusate Sodium) 100 Mg Capsule 50 Mg PO BID Diagnosis: Problems: (1) Anxiety disorder (2) Dementia in Alzheimer's disease with delusions (3) Dementia in Alzheimer's disease with depression (4) Dementia, vascular, with delusions (5) Dementia, vascular, with depression (6) Impulse control disorder MARJ FELICIANO MD Jul 03, 2016 22:22
--- NOTE | 2016-07-03 23:23 | NUR ---
Behavior Intervention Response and Plan: BIRP Note: Behavior: Assumed Care of patient, patient located in Day Room at shift change. Patient exhibited the following behavior Wandering, Restless, Agitated. Brief assessment on rounds of vital signs, medication needs, lab studies, and pain. Treatment plan problems 1 and 2. Intervention: Patient assessed and the following interventions initiated safety checks 15 Minute Checks Cognitive Assessment , Head to toe Assessment , Medications. Response: After interactions and interventions patient responded in the following manner, Calm , Compliant ,Resistive. Continue to assess behaviors and condition will continue to monitor throughout the shift as needed. 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 Continue to assess patient for changes in above assessment. Monitor for medication needs, pain, and safety concerns. Hourly rounding performed to ensure safe environment.
[2016-07-04 06:04] VITALS: BP 158/95
[2016-07-04] MEDS: ESCITALOPRAM 20 MG TABLET. PO SCH (08:52)
[2016-07-04] MEDS: DEXAMETHASONE 4 MG TABLET PO SCH (08:52)
[2016-07-04] MEDS: DONEPEZIL HCL 10 MG TABLET PO SCH (08:52)
[2016-07-04] MEDS: FAMOTIDINE 20 MG TABLET PO SCH (08:52)
[2016-07-04] MEDS: DOCUSATE SODIUM 100 MG CAPSULE PO SCH (08:53)
[2016-07-04] MEDS: PANTOPRAZOLE 40 MG TABLET. PO SCH (08:53)
[2016-07-04] MEDS: QUEtiapine 25 MG TABLET. PO SCH ×3 (08:53→19:57)
[2016-07-04] MEDS: busPIRone 15 MG TABLET. PO SCH ×3 (08:53→19:57)
[2016-07-04 11:29] LABS: BASO # 0.1 x10^3/uL (0.0-0.2); BASO % 1 % (0-3); EOS # 0.1 x10^3/uL (0.0-0.7); EOS % 1 % (0-3); HEMATOCRIT 32.7 % (39.0-53.0); HEMOGLOBIN 11.2 g/dL (13.0-17.5); LYMPH # 1.4 x10^3/uL (1.0-4.8); LYMPH % 15 % (24-48); MEAN CORPUSCULAR HEMOGLOBIN 34 pg (25-35); MEAN CORPUSCULAR HGB CONC 34 g/dL (31-37); MEAN CORPUSCULAR VOLUME 98 fL (79-100); MONO # 0.6 x10^3/uL (0.0-1.1); MONO % 7 % (0-9); NEUT # 6.7 x10^3uL (1.8-7.7); NEUT % 76 % (31-73); PLATELET COUNT 212 x10^3/uL (140-400); RED BLOOD COUNT 3.33 x10^6/uL (4.30-5.70); RED CELL DISTRIBUTION WIDTH 15.3 % (11.5-14.5); WHITE BLOOD COUNT 8.8 x10^3/uL (4.0-11.0)
[2016-07-04 11:42] LABS: ALBUMIN 2.4 g/dL (3.4-5.0); ALBUMIN/GLOBULIN RATIO 0.6 (1.0-1.7); CALCIUM 8.4 mg/dL (8.5-10.1); CREATININE 0.9 mg/dL (0.7-1.3); GFR 83.7; MAGNESIUM 2.2 mg/dL (1.8-2.4); POTASSIUM 4.2 mmol/L (3.5-5.1); TOTAL BILIRUBIN 0.3 mg/dL (0.2-1.0); TOTAL PROTEIN 6.5 g/dL (6.4-8.2)
--- NOTE | 2016-07-04 13:09 | NUR ---
Behavior Intervention Response and Plan: BIRP Note: Behavior: Assumed Care of patient, patient located in Dining Room at shift change. Patient exhibited the following behavior Wandering, Restless, Compulsive. Brief assessment on rounds of vital signs, medication needs, lab studies, and pain. Treatment plan problems . Intervention: Patient assessed and the following interventions initiated safety checks 15 Minute Checks Cognitive Assessment , Head to toe Assessment , Medications. Response: After interactions and interventions patient responded in the following manner, Calm , Compliant ,Cooperative. Continue to assess behaviors and condition will continue to monitor throughout the shift as needed. 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 Continue to assess patient for changes in above assessment. Monitor for medication needs, pain, and safety concerns. Hourly rounding performed to ensure safe environment.
[2016-07-04] MEDS: ALPRAZolam 0.5 MG TABLET PO PRN (17:15)
--- NOTE | 2016-07-04 17:18 | NUR ---
Patient in dining room, and started swinging at another patient when he was directed to sit down to eat, because he was trying to take other patient's food. Patient had breakdown, swinging at staff and yelling when staff attempted to redirect him with his own food, but he was not able to calm down. He continued to flail his arms and legs in dining room so staff removed him from dining room, and brought him to [facility] in isolation for safety. PRN xanax given for agitation, will continue to monitor.
[2016-07-04 17:39] VITALS: BP 160/80
--- NOTE | 2016-07-05 01:00 | NUR ---
Behavior Intervention Response and Plan: BIRP Note: Behavior: Assumed Care of patient, patient located in Dining Room at shift change. Patient exhibited the following behavior Wandering, Restless, Compulsive. Brief assessment on rounds of vital signs, medication needs, lab studies, and pain. Treatment plan problems 1-2. Intervention: Patient assessed and the following interventions initiated safety checks 15 Minute Checks Cognitive Assessment , Head to toe Assessment , Medications. Response: After interactions and interventions patient responded in the following manner, Calm , Compliant ,Cooperative. Continue to assess behaviors and condition will continue to monitor throughout the shift as needed. 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 Continue to assess patient for changes in above assessment. Monitor for medication needs, pain, and safety concerns. Hourly rounding performed to ensure safe environment.
--- NOTE | 2016-07-05 05:17 | NUR ---
Nursing Notes Pt hitting kicking biting and punching during clothing changes. Misperceives any approach with ADLs as a violation. Screams loudly out of control , then apologizes afterward. Pt has no recognition that he has done anything wrong. States well you started it, and I was going to finish it. As if he were in a fight with someone.
[2016-07-05 06:03] VITALS: BP 147/93
[2016-07-05] MEDS: PANTOPRAZOLE 40 MG TABLET. PO SCH (07:44)
[2016-07-05] MEDS: DEXAMETHASONE 4 MG TABLET PO SCH (07:44)
[2016-07-05] MEDS: busPIRone 15 MG TABLET. PO SCH ×3 (07:44→20:39)
[2016-07-05] MEDS: QUEtiapine 25 MG TABLET. PO SCH ×3 (07:44→20:39)
[2016-07-05] MEDS: FAMOTIDINE 20 MG TABLET PO SCH (07:44)
[2016-07-05] MEDS: DOCUSATE SODIUM 100 MG CAPSULE PO SCH (07:44)
[2016-07-05] MEDS: DONEPEZIL HCL 10 MG TABLET PO SCH (07:45)
[2016-07-05] MEDS: ALPRAZolam 0.5 MG TABLET PO PRN (07:45)
[2016-07-05] MEDS: ESCITALOPRAM 10 MG TABLET. PO SCH (07:48)
--- NOTE | 2016-07-05 08:15 | NUR ---
Patient restless this AM and has history of combativeness and not easily redirected during meal times. PRN xanax given, will continue to monitor.
[2016-07-05] MEDS ORDERED: CHOLECALCIFEROL (VITAMIN D3) 50,000 UNIT CAPSULE PO SCH (09:00)
--- NOTE | 2016-07-05 12:31 | NUR ---
PEDRO received call from Julio César, [facility] at [facility]. PEDRO reported continued behaviors during Cares. Julio César continues to have concerns about Pt. laying in other residents' beds and becoming combative when the resident returns and wants Pt. to leave the room. PEDRO will continue to update Julio César w/target dc plans as Julio César will need to come out and reassess for admit.
--- NOTE | 2016-07-05 12:47 | PN ---
DATE: 07/03/2016 This is a late entry for 07/03/2016, covers the elements not covered in my initial note. SUBJECTIVE: The patient remains confused, slept through breakfast, toilets himself, less aggressive. REVIEW OF SYSTEMS: No CV, , pulmonary, eye system symptoms on review. Reliability poor. MENTAL STATUS EXAMINATION: Oriented to himself. Insight, judgment, recent and remote memory, attention, concentration, fund of knowledge poor, consistent with his diagnosis mentioned in my initial note. PLAN: Continue current psychotropics mentioned in my initial note; adjust further as clinically indicated. MAN Fuentes FELICIANO MD DR: STACEY/fe JOB#: [id number] / [id number]
--- NOTE | 2016-07-05 14:20 | NUR ---
SW spoke w/Pt's , Selvin regarding dc plans. Selvin will be meeting w/staff from [facility] and [facility] on Tuesday to better determine the level of care required by Pt. at dc. SW offered assistance w/new placement if that is what the team determines. Selvin will follow up w/this SW after mtg.
--- NOTE | 2016-07-05 14:35 | NUR ---
ACTIVITY THERAPY ASSESSMENT Completed based on observations and interview on this day at this time. Pt. asked ASSISTANT DEAN OF STUDENTS for cookies and wandered away and laid down in a bed. ASSISTANT DEAN OF STUDENTS handed him a snack bag; however, Pt. needed hand over hand assistance and constant supervision to successfully eat the snack. Pt. could not answer assessment questions but was agreeable. He wanders the halls and has minimal interaction with others. Pt. has a short attention span and was able to recall the day and month of his birthday but struggled with the year. Pt. needs constant prompting and redirection. Initial goal: Pt. will participate in all groups he is invited to.
[2016-07-05 15:43] VITALS: BP 124/56
--- NOTE | 2016-07-05 15:48 | NUR ---
Behavior Intervention Response and Plan: BIRP Note: Behavior: Assumed Care of patient, patient located in at shift change. Patient exhibited the following behavior Wandering, Restless, Compulsive. Brief assessment on rounds of vital signs, medication needs, lab studies, and pain. Treatment plan problems . Intervention: Patient assessed and the following interventions initiated safety checks 15 Minute Checks Cognitive Assessment , Head to toe Assessment , Medications. Response: After interactions and interventions patient responded in the following manner, Calm , Compliant ,Cooperative. Continue to assess behaviors and condition will continue to monitor throughout the shift as needed. 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 Continue to assess patient for changes in above assessment. Monitor for medication needs, pain, and safety concerns. Hourly rounding performed to ensure safe environment.
--- NOTE | 2016-07-05 20:36 | PDOC ---
Exam Tor Demential Exam: Tor Note: Please also refer to the separate dictated note~for this date of service dictated separately.~Patient seen individually. Discussed the patient with Nursing staff reviewed the chart.~Reviewed interim history and current functioning. Reviewed vital signs,~Labs/ Radiology~and current medications noted below. Continue current treatment with the changes noted in the dictated addendum note Assessment: Vital Signs: Vital Signs Date Time Temp Pulse Resp B/P Pulse Ox O2 Delivery O2 Flow Rate FiO2 07/05/16 15:43 97.5 69 19 124/56 97 07/02/16 05:43 Room Air I&O Intake and Output 07/05/16 07:00 Intake Total 940 ml Balance 940 ml Intake Oral 940 ml # Voids 1 # Bowel Movements 1 Current Medications: Meds: Current Medications Alprazolam (Xanax) 0.5 mg PRN Q6HRS PRN PO ANXIETY / AGITATION Last administered on 07/05/16 07:45; Start 06/28/16 at 23:15 Donepezil HCl (Aricept) 20 mg DAILY PO Last administered on 07/05/16 07:45; Start 06/29/16 at 09:00 Escitalopram Oxalate (Lexapro) 20 mg DAILY PO Last administered on 07/04/16 08 :52; Start 06/29/16 at 09:00; Stop 07/04/16 at 18:24; Status DC Lorazepam (Ativan) 1 mg PRN Q4HRS PRN PO ANXIETY / AGITATION Last administered on 07/03/16 20:48; Start 06/28/16 at 23:15; Stop 07/04/16 at 18:24; Status DC Quetiapine Fumarate (SEROquel) 50 mg TID PO Last administered on 06/30/16 13: 17; Start 06/29/16 at 09:00; Stop 06/30/16 at 18:08; Status DC Buspirone HCl (Buspar) 7.5 mg BID PO Last administered on 07/02/16 07:39; Start 06/29/16 at 09:00; Stop 07/02/16 at 17:55; Status DC Multi-Ingredient Ointment (Analgesic [place]) 1 neil PRN QID PRN TP MUSCLE PAIN; Start 06/28/16 at 23:15 Acetaminophen (Tylenol) 650 mg PRN Q6HRS PRN PO prn Last administered on 07:48; Start 06/29/16 at 07:15 Dexamethasone (Decadron) 4 mg DAILY PO Last administered on 07/05/16 07:44; Start 06/29/16 at 09:00 Dicyclomine HCl (Bentyl) 10 mg PRN TID PRN PO stomach spasm Last administered on 06/30/16 07:45; Start 06/29/16 at 07:15 Docusate Sodium (Colace) 100 mg DAILY PO Last administered on 07/05/16 07:44; Start 06/29/16 at 09:00 Hyoscyamine (Anaspaz) 0.125 mg PRN Q2HR PRN PO SECRETIONS Last administered on 06/30/16 07:46; Start 06/29/16 at 07:30 Pantoprazole Sodium (Protonix) 40 mg DAILYAC PO Last administered on 07/05/16 07:44; Start 06/29/16 at 07:30 Famotidine (Pepcid) 20 mg DAILY PO Last administered on 07/05/16 07:44; Start 06/29/16 at 09:00 Quetiapine Fumarate (SEROquel) 25 mg BID92 PO Last administered on 07/05/16 13: 58; Start 07/01/16 at 09:00 Quetiapine Fumarate (SEROquel) 50 mg QHS PO Last administered on 07/04/16 19: 57; Start 06/30/16 at 21:00 Buspirone HCl (Buspar) 7.5 mg TID PO Last administered on 07/05/16 13:59; Start 07/02/16 at 21:00 Vitamin D (Vitamin D3) 50,000 unit WEEKLY PO Last administered on 07/05/16 07: 48; Start 07/05/16 at 09:00 Escitalopram Oxalate (Lexapro) 10 mg DAILY PO Last administered on 07/05/16 07: 48; Start 07/05/16 at 09:00 Active Scripts Active Reported Alprazolam 0.5 Mg Tablet 0.5 Mg PO PRN Q6HRS PRN LAST DOSE GIVEN: DATE: TIME: NEXT DOSE DUE: DATE: TIME: Buspirone Hcl 7.5 Mg Tablet 7.5 Mg PO BID LAST DOSE GIVEN: DATE: TIME: NEXT DOSE DUE: DATE: TIME: Seroquel (Quetiapine Fumarate) 50 Mg Tablet 50 Mg PO TID LAST DOSE GIVEN: DATE: TIME: NEXT DOSE DUE: DATE: TIME: Levbid (Hyoscyamine Sulfate) 0.375 Mg Tab.er.12h 0.125 Mg PO Q2HR PRN Lorazepam 1 Mg Tablet 1 Mg PO Q4HRS PRN LAST DOSE GIVEN: DATE: TIME: NEXT DOSE DUE: DATE: TIME: Dicyclomine Hcl 10 Mg Capsule 10 Mg PO TID PRN Tylenol (Acetaminophen) 325 Mg Tablet 650 Mg PO Q6HRS PRN LAST DOSE GIVEN: DATE: TIME: NEXT DOSE DUE: DATE: TIME: Ranitidine Hcl 15 Mg/1 Ml Syrup 75 Mg PO DAILY Omeprazole 40 Mg Capsule.dr 40 Mg PO DAILY Escitalopram Oxalate 20 Mg Tablet 20 Mg PO DAILY Aricept (Donepezil Hcl) 10 Mg Tablet 20 Mg PO DAILY Dexamethasone 4 Mg Tablet 4 Mg PO DAILY Colace (Docusate Sodium) 100 Mg Capsule 50 Mg PO BID Diagnosis: Problems: (1) Anxiety disorder (2) Dementia in Alzheimer's disease with delusions (3) Dementia in Alzheimer's disease with depression (4) Dementia, vascular, with delusions (5) Dementia, vascular, with depression (6) Impulse control disorder MARJ FELICIANO MD July 05, 2016 20:36
--- NOTE | 2016-07-06 01:46 | PN ---
DATE: 07/04/2016 PSYCHIATRIC PROGRESS NOTE This is late entry of 07/04/2016, covers elements not covered in my initial note. OBJECTIVE: Temperature 97.6, BP 147/90, respirations 20, pulse 78. SUBJECTIVE: The patient remains confused, slept well the previous night, took a shower evening of 07/03/2016, combative during that time, received an Ativan. On 07/04/2016, he did well till dinner time, then was grabbing food of the plate of other patients, swinging at staff, when they intervened, combative with staff. Family indicated Ativan had caused paradoxical disinhibition in the past. REVIEW OF SYSTEMS: No CV, , pulmonary, eye, ENT system symptoms on review. Reliability poor. MENTAL STATUS EXAMINATION: Oriented to himself. Insight, judgment, recent and remote memory, attention, concentration, fund of knowledge poor, consistent with his diagnosis. IMPRESSION: Major neurocognitive disorder, Alzheimer, vascular with depression, delusion, behavioral disturbance. PLAN: Reduce Lexapro from 20 mg a day to 10 mg a day, more adequate for his age since the higher dosage could be increasing irritability, maintain Aricept 10 mg a day, discontinue the Ativan p.r.n., Seroquel, continue 25 b.i.d., 50 at bedtime, BuSpar 7.5 t.i.d., Xanax p.r.n., consider Depakote as a mood stabilizer if agitation, mood lability persists. MARJ FELICIANO MD DR: STACEY/fe JOB#: [id number] / [id number]
--- NOTE | 2016-07-06 03:09 | NUR ---
Behavior Intervention Response and Plan: BIRP Note: Behavior: Assumed Care of patient, patient located in Patient Room at shift change. Patient exhibited the following behavior Withdrawn, Disorganized, Compulsive. Brief assessment on rounds of vital signs, medication needs, lab studies, and pain. Treatment plan problems Dementia with BD and Fall Risk. Intervention: Patient assessed and the following interventions initiated safety checks 15 Minute Checks Cognitive Assessment , Head to toe Assessment , Medications. Response: After interactions and interventions patient responded in the following manner, Restless , Disorganized ,Compulsive. Continue to assess behaviors and condition will continue to monitor throughout the shift as needed. Plan: Continue to monitor Master Treatment Plan for patient's progress toward short term goals of Decreased Agitation, Decreased Aggression, mcc goals to return to previous living setting vs placement. Continue to assess patient for changes in above assessment. Monitor for medication needs, pain, and safety concerns. Hourly rounding performed to ensure safe environment.
[2016-07-06 06:24] VITALS: BP 146/78
[2016-07-06] MEDS: busPIRone 15 MG TABLET. PO SCH ×3 (08:51→20:32)
[2016-07-06] MEDS: PANTOPRAZOLE 40 MG TABLET. PO SCH (08:51)
[2016-07-06] MEDS: DOCUSATE SODIUM 100 MG CAPSULE PO SCH (08:52)
[2016-07-06] MEDS: FAMOTIDINE 20 MG TABLET PO SCH (08:52)
[2016-07-06] MEDS: ESCITALOPRAM 10 MG TABLET. PO SCH (08:52)
[2016-07-06] MEDS: DONEPEZIL HCL 10 MG TABLET PO SCH (08:52)
[2016-07-06] MEDS: QUEtiapine 25 MG TABLET. PO SCH ×3 (08:52→20:32)
[2016-07-06] MEDS: DEXAMETHASONE 4 MG TABLET PO SCH (08:52)
--- NOTE | 2016-07-06 10:13 | NUR ---
Behavior Intervention Response and Plan: BIRP Note: Behavior: Assumed Care of patient, patient located in Patient Room at shift change. Patient exhibited the following behavior Wandering, Exit Seeking, Disorganized. Brief assessment on rounds of vital signs, medication needs, lab studies, and pain. Treatment plan problems . Intervention: Patient assessed and the following interventions initiated safety checks 15 Minute Checks Medications , Head to toe Assessment , Nutrition. Response: After interactions and interventions patient responded in the following manner, Disorganized , Social ,Cooperative. Continue to assess behaviors and condition will continue to monitor throughout the shift as needed. 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 Continue to assess patient for changes in above assessment. Monitor for medication needs, pain, and safety concerns. Hourly rounding performed to ensure safe environment.
[2016-07-06 15:53] VITALS: BP 133/76
[2016-07-06] MEDS: ALPRAZolam 0.5 MG TABLET PO PRN (20:41)
--- NOTE | 2016-07-06 21:11 | PDOC ---
Exam Tor Demential Exam: Tor Note: Please also refer to the separate dictated note~for this date of service dictated separately.~Patient seen individually. Discussed the patient with Nursing staff reviewed the chart.~Reviewed interim history and current functioning. Reviewed vital signs,~Labs/ Radiology~and current medications noted below. Continue current treatment with the changes noted in the dictated addendum note Assessment: Vital Signs: Vital Signs Date Time Temp Pulse Resp B/P Pulse Ox O2 Delivery O2 Flow Rate FiO2 07/06/16 15:53 97.9 64 18 133/76 95 07/02/16 05:43 Room Air I&O Intake and Output 07/06/16 07:00 Intake Total 720 ml Balance 720 ml Intake Oral 720 ml # Voids 1 Current Medications: Meds: Current Medications Alprazolam (Xanax) 0.5 mg PRN Q6HRS PRN PO ANXIETY / AGITATION Last administered on 07/06/16 20:41; Start 06/28/16 at 23:15 Donepezil HCl (Aricept) 20 mg DAILY PO Last administered on 07/06/16 08:52; Start 06/29/16 at 09:00 Escitalopram Oxalate (Lexapro) 20 mg DAILY PO Last administered on 07/04/16 08 :52; Start 06/29/16 at 09:00; Stop 07/04/16 at 18:24; Status DC Lorazepam (Ativan) 1 mg PRN Q4HRS PRN PO ANXIETY / AGITATION Last administered on 07/03/16 20:48; Start 06/28/16 at 23:15; Stop 07/04/16 at 18:24; Status DC Quetiapine Fumarate (SEROquel) 50 mg TID PO Last administered on 06/30/16 13: 17; Start 06/29/16 at 09:00; Stop 06/30/16 at 18:08; Status DC Buspirone HCl (Buspar) 7.5 mg BID PO Last administered on 07/02/16 07:39; Start 06/29/16 at 09:00; Stop 07/02/16 at 17:55; Status DC Multi-Ingredient Ointment (Analgesic [place]) 1 neil PRN QID PRN TP MUSCLE PAIN; Start 06/28/16 at 23:15 Acetaminophen (Tylenol) 650 mg PRN Q6HRS PRN PO prn Last administered on 07:48; Start 06/29/16 at 07:15 Dexamethasone (Decadron) 4 mg DAILY PO Last administered on 07/06/16 08:52; Start 06/29/16 at 09:00 Dicyclomine HCl (Bentyl) 10 mg PRN TID PRN PO stomach spasm Last administered on 06/30/16 07:45; Start 06/29/16 at 07:15 Docusate Sodium (Colace) 100 mg DAILY PO Last administered on 07/06/16 08:52; Start 06/29/16 at 09:00 Hyoscyamine (Anaspaz) 0.125 mg PRN Q2HR PRN PO SECRETIONS Last administered on 06/30/16 07:46; Start 06/29/16 at 07:30 Pantoprazole Sodium (Protonix) 40 mg DAILYAC PO Last administered on 07/06/16 08:51; Start 06/29/16 at 07:30 Famotidine (Pepcid) 20 mg DAILY PO Last administered on 07/06/16 08:52; Start 06/29/16 at 09:00 Quetiapine Fumarate (SEROquel) 25 mg BID92 PO Last administered on 07/06/16 14: 00; Start 07/01/16 at 09:00 Quetiapine Fumarate (SEROquel) 50 mg QHS PO Last administered on 07/06/16 20:32 ; Start 06/30/16 at 21:00 Buspirone HCl (Buspar) 7.5 mg TID PO Last administered on 07/06/16 20:32; Start 07/02/16 at 21:00 Vitamin D (Vitamin D3) 50,000 unit WEEKLY PO Last administered on 07/05/16 07: 48; Start 07/05/16 at 09:00 Escitalopram Oxalate (Lexapro) 10 mg DAILY PO Last administered on 07/06/16 08: 52; Start 07/05/16 at 09:00 Active Scripts Active Reported Alprazolam 0.5 Mg Tablet 0.5 Mg PO PRN Q6HRS PRN LAST DOSE GIVEN: DATE: TIME: NEXT DOSE DUE: DATE: TIME: Buspirone Hcl 7.5 Mg Tablet 7.5 Mg PO BID LAST DOSE GIVEN: DATE: TIME: NEXT DOSE DUE: DATE: TIME: Seroquel (Quetiapine Fumarate) 50 Mg Tablet 50 Mg PO TID LAST DOSE GIVEN: DATE: TIME: NEXT DOSE DUE: DATE: TIME: Levbid (Hyoscyamine Sulfate) 0.375 Mg Tab.er.12h 0.125 Mg PO Q2HR PRN Lorazepam 1 Mg Tablet 1 Mg PO Q4HRS PRN LAST DOSE GIVEN: DATE: TIME: NEXT DOSE DUE: DATE: TIME: Dicyclomine Hcl 10 Mg Capsule 10 Mg PO TID PRN Tylenol (Acetaminophen) 325 Mg Tablet 650 Mg PO Q6HRS PRN LAST DOSE GIVEN: DATE: TIME: NEXT DOSE DUE: DATE: TIME: Ranitidine Hcl 15 Mg/1 Ml Syrup 75 Mg PO DAILY Omeprazole 40 Mg Capsule.dr 40 Mg PO DAILY Escitalopram Oxalate 20 Mg Tablet 20 Mg PO DAILY Aricept (Donepezil Hcl) 10 Mg Tablet 20 Mg PO DAILY Dexamethasone 4 Mg Tablet 4 Mg PO DAILY Colace (Docusate Sodium) 100 Mg Capsule 50 Mg PO BID Diagnosis: Problems: (1) Anxiety disorder (2) Dementia in Alzheimer's disease with delusions (3) Dementia in Alzheimer's disease with depression (4) Dementia, vascular, with delusions (5) Dementia, vascular, with depression (6) Impulse control disorder MARJ FELICIANO MD July 06, 2016 21:11
--- NOTE | 2016-07-06 21:20 | NUR ---
Behavior Intervention Response and Plan: BIRP Note: Behavior: Assumed Care of patient, patient located in Patient Room at shift change. Patient exhibited the following behavior Wandering, Anxious, Disorganized, Resistive. Brief assessment on rounds of vital signs, medication needs, lab studies, and pain. Treatment plan problems: Dementia with BD and Fall Risk . Intervention: Patient assessed and the following interventions initiated safety checks 15 Minute Checks Cognitive Assessment , Head to toe Assessment , Medications. Response: After interactions and interventions patient responded in the following manner, Calm , Interactive ,Cooperative. Continue to assess behaviors and condition will continue to monitor throughout the shift as needed. 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 Continue to assess patient for changes in above assessment. Monitor for medication needs, pain, and safety concerns. Hourly rounding performed to ensure safe environment.
--- NOTE | 2016-07-07 04:55 | PN ---
DATE: 07/05/2016 This late entry for 07/05/2016 covers elements, not covered in my initial note. SUBJECTIVE: The patient was quite confused, restless in the morning, combative previous night, slept 5-1/2 hours, took Xanax with morning medications then did better. REVIEW OF SYSTEMS: No CV, , pulmonary, eye, ENT system symptoms on review. Reliability poor. MENTAL STATUS EXAM: Oriented to himself. Insight, judgment, recent and remote memory, attention, concentration, fund of knowledge poor, consistent with his diagnosis as mentioned in my initial note. PLAN: Continue current psychotropics mentioned in my initial note. Adjust further as clinically indicated. MAN Fuentes FELICIANO MD DR: STACEY/fe JOB#: [id number] / [id number]
[2016-07-07] MEDS: PANTOPRAZOLE 40 MG TABLET. PO SCH (07:47)
[2016-07-07] MEDS: ESCITALOPRAM 10 MG TABLET. PO SCH (07:47)
[2016-07-07] MEDS: QUEtiapine 25 MG TABLET. PO SCH ×3 (07:47→20:16)
[2016-07-07] MEDS: FAMOTIDINE 20 MG TABLET PO SCH (07:47)
[2016-07-07] MEDS: DOCUSATE SODIUM 100 MG CAPSULE PO SCH (07:48)
[2016-07-07] MEDS: DEXAMETHASONE 4 MG TABLET PO SCH (07:48)
[2016-07-07] MEDS: DONEPEZIL HCL 10 MG TABLET PO SCH (07:48)
[2016-07-07] MEDS: busPIRone 15 MG TABLET. PO SCH ×3 (07:48→20:16)
--- NOTE | 2016-07-07 10:22 | NUR ---
Behavior Intervention Response and Plan: BIRP Note: Behavior: Assumed Care of patient, patient located in Patient Room at shift change. Patient exhibited the following behavior Disorganized, Wandering, Interactive. Brief assessment on rounds of vital signs, medication needs, lab studies, and pain. Treatment plan problems . Intervention: Patient assessed and the following interventions initiated safety checks 15 Minute Checks Head to toe Assessment , Medications , Nutrition. Response: After interactions and interventions patient responded in the following manner, Calm , Interactive ,Disorganized. Continue to assess behaviors and condition will continue to monitor throughout the shift as needed. 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 Continue to assess patient for changes in above assessment. Monitor for medication needs, pain, and safety concerns. Hourly rounding performed to ensure safe environment.
--- NOTE | 2016-07-07 12:40 | NUR ---
SW received call from Julio César at [facility] who was meeting w/PT's family and Hospice provider. SW shared known information about PT's reactions to Cares and Sleeping in random beds on the unit. PEDRO transferred call to Nursing for more specific information. PEDRO was also approached by Lindsay Lopez for possible admit to facility. PEDRO provided admit referral and will wait for possible acceptance.
[2016-07-07 15:39] VITALS: BP 152/95
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
--- NOTE | 2016-07-07 20:57 | PDOC ---
Exam Tor Demential Exam: Tor Note: Please also refer to the separate dictated note~for this date of service dictated separately.~Patient seen individually. Discussed the patient with Nursing staff reviewed the chart.~Reviewed interim history and current functioning. Reviewed vital signs,~Labs/ Radiology~and current medications noted below. Continue current treatment with the changes noted in the dictated addendum note Assessment: Vital Signs: Vital Signs Date Time Temp Pulse Resp B/P Pulse Ox O2 Delivery O2 Flow Rate FiO2 07/07/16 15:39 97.9 85 20 152/95 99 07/02/16 05:43 Room Air I&O Intake and Output 07/07/16 07:00 Intake Total 1200 ml Balance 1200 ml Intake Oral 1200 ml # Voids 2 Current Medications: Meds: Current Medications Alprazolam (Xanax) 0.5 mg PRN Q6HRS PRN PO ANXIETY / AGITATION Last administered on 07/06/16 20:41; Start 06/28/16 at 23:15 Donepezil HCl (Aricept) 20 mg DAILY PO Last administered on 07/07/16 07:48; Start 06/29/16 at 09:00 Escitalopram Oxalate (Lexapro) 20 mg DAILY PO Last administered on 07/04/16 08 :52; Start 06/29/16 at 09:00; Stop 07/04/16 at 18:24; Status DC Lorazepam (Ativan) 1 mg PRN Q4HRS PRN PO ANXIETY / AGITATION Last administered on 07/03/16 20:48; Start 06/28/16 at 23:15; Stop 07/04/16 at 18:24; Status DC Quetiapine Fumarate (SEROquel) 50 mg TID PO Last administered on 06/30/16 13: 17; Start 06/29/16 at 09:00; Stop 06/30/16 at 18:08; Status DC Buspirone HCl (Buspar) 7.5 mg BID PO Last administered on 07/02/16 07:39; Start 06/29/16 at 09:00; Stop 07/02/16 at 17:55; Status DC Multi-Ingredient Ointment (Analgesic [place]) 1 neil PRN QID PRN TP MUSCLE PAIN; Start 06/28/16 at 23:15 Acetaminophen (Tylenol) 650 mg PRN Q6HRS PRN PO prn Last administered on 07:48; Start 06/29/16 at 07:15 Dexamethasone (Decadron) 4 mg DAILY PO Last administered on 07/07/16 07:48; Start 06/29/16 at 09:00 Dicyclomine HCl (Bentyl) 10 mg PRN TID PRN PO stomach spasm Last administered on 06/30/16 07:45; Start 06/29/16 at 07:15 Docusate Sodium (Colace) 100 mg DAILY PO Last administered on 07/07/16 07:48; Start 06/29/16 at 09:00 Hyoscyamine (Anaspaz) 0.125 mg PRN Q2HR PRN PO SECRETIONS Last administered on 06/30/16 07:46; Start 06/29/16 at 07:30 Pantoprazole Sodium (Protonix) 40 mg DAILYAC PO Last administered on 07/07/16 07:47; Start 06/29/16 at 07:30 Famotidine (Pepcid) 20 mg DAILY PO Last administered on 07/07/16 07:47; Start 06/29/16 at 09:00 Quetiapine Fumarate (SEROquel) 25 mg BID92 PO Last administered on 07/07/16 13: 44; Start 07/01/16 at 09:00 Quetiapine Fumarate (SEROquel) 50 mg QHS PO Last administered on 07/07/16 20:16 ; Start 06/30/16 at 21:00 Buspirone HCl (Buspar) 7.5 mg TID PO Last administered on 07/07/16 20:16; Start 07/02/16 at 21:00 Vitamin D (Vitamin D3) 50,000 unit WEEKLY PO Last administered on 07/05/16 07: 48; Start 07/05/16 at 09:00 Escitalopram Oxalate (Lexapro) 10 mg DAILY PO Last administered on 07/07/16 07: 47; Start 07/05/16 at 09:00 Active Scripts Active Reported Alprazolam 0.5 Mg Tablet 0.5 Mg PO PRN Q6HRS PRN LAST DOSE GIVEN: DATE: TIME: NEXT DOSE DUE: DATE: TIME: Buspirone Hcl 7.5 Mg Tablet 7.5 Mg PO BID LAST DOSE GIVEN: DATE: TIME: NEXT DOSE DUE: DATE: TIME: Seroquel (Quetiapine Fumarate) 50 Mg Tablet 50 Mg PO TID LAST DOSE GIVEN: DATE: TIME: NEXT DOSE DUE: DATE: TIME: Levbid (Hyoscyamine Sulfate) 0.375 Mg Tab.er.12h 0.125 Mg PO Q2HR PRN Lorazepam 1 Mg Tablet 1 Mg PO Q4HRS PRN LAST DOSE GIVEN: DATE: TIME: NEXT DOSE DUE: DATE: TIME: Dicyclomine Hcl 10 Mg Capsule 10 Mg PO TID PRN Tylenol (Acetaminophen) 325 Mg Tablet 650 Mg PO Q6HRS PRN LAST DOSE GIVEN: DATE: TIME: NEXT DOSE DUE: DATE: TIME: Ranitidine Hcl 15 Mg/1 Ml Syrup 75 Mg PO DAILY Omeprazole 40 Mg Capsule.dr 40 Mg PO DAILY Escitalopram Oxalate 20 Mg Tablet 20 Mg PO DAILY Aricept (Donepezil Hcl) 10 Mg Tablet 20 Mg PO DAILY Dexamethasone 4 Mg Tablet 4 Mg PO DAILY Colace (Docusate Sodium) 100 Mg Capsule 50 Mg PO BID Diagnosis: Problems: (1) Anxiety disorder (2) Dementia in Alzheimer's disease with delusions (3) Dementia in Alzheimer's disease with depression (4) Dementia, vascular, with delusions (5) Dementia, vascular, with depression (6) Impulse control disorder MARJ FELICIANO MD July 07, 2016 20:57
--- NOTE | 2016-07-07 22:53 | NUR ---
Behavior Intervention Response and Plan: BIRP Note: Behavior: Assumed Care of patient, patient located in Patient Room at shift change. Patient exhibited the following behavior Calm, Withdrawn, Sleeping. Brief assessment on rounds of vital signs, medication needs, lab studies, and pain. Treatment plan problems 1 and 2. Intervention: Patient assessed and the following interventions initiated safety checks 15 Minute Checks Cognitive Assessment , Head to toe Assessment , Medications. Response: After interactions and interventions patient responded in the following manner, Calm , Compliant ,Cooperative. Continue to assess behaviors and condition will continue to monitor throughout the shift as needed. 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 Continue to assess patient for changes in above assessment. Monitor for medication needs, pain, and safety concerns. Hourly rounding performed to ensure safe environment.
--- NOTE | 2016-07-08 02:56 | PN ---
DATE: 07/06/2016 PSYCHIATRIC PROGRESS NOTE This is a late entry of 07/06/2016 covers elements not covered in my initial note. SUBJECTIVE: The patient has not been aggressive remains confused, pleasant, redirectable takes his meds crushed. No CV, , pulmonary, eye, ENT system symptoms on review. Gait unsteady. MENTAL STATUS EXAM: Oriented to himself. Insight, judgment, recent and remote memory, attention, concentration, fund of knowledge poor, consistent with his diagnosis not very verbal. DIAGNOSES: Mentioned in my initial note. PLAN: Continue psychotropics mentioned in my initial note. Adjust further as clinically indicated. MAN Fuentes FELICIANO MD DR: STACEY/fe JOB#: [id number] / [id number]
[2016-07-08] MEDS: ALPRAZolam 0.5 MG TABLET PO PRN ×3 (08:58→19:34)
[2016-07-08] MEDS: ESCITALOPRAM 10 MG TABLET. PO SCH (08:58)
[2016-07-08] MEDS: QUEtiapine 25 MG TABLET. PO SCH ×3 (08:59→19:32)
[2016-07-08] MEDS: FAMOTIDINE 20 MG TABLET PO SCH (08:59)
[2016-07-08] MEDS: DOCUSATE SODIUM 100 MG CAPSULE PO SCH (08:59)
[2016-07-08] MEDS: DEXAMETHASONE 4 MG TABLET PO SCH (08:59)
[2016-07-08] MEDS: busPIRone 15 MG TABLET. PO SCH (08:59)
[2016-07-08] MEDS: PANTOPRAZOLE 40 MG TABLET. PO SCH (08:59)
[2016-07-08] MEDS: DONEPEZIL HCL 10 MG TABLET PO SCH (08:59)
--- NOTE | 2016-07-08 10:16 | NUR ---
Behavior Intervention Response and Plan: BIRP Note: Behavior: Assumed Care of patient, patient located in Patient Room at shift change. Patient exhibited the following behavior Disorganized, Wandering, Resistive. Brief assessment on rounds of vital signs, medication needs, lab studies, and pain. Treatment plan problems . Intervention: Patient assessed and the following interventions initiated safety checks 15 Minute Checks Medications , Head to toe Assessment , Nutrition. Response: After interactions and interventions patient responded in the following manner, Agitated , Sleeping ,Exit Seeking. Continue to assess behaviors and condition will continue to monitor throughout the shift as needed. Plan: Continue to monitor Master Treatment Plan for patient's progress toward short term goals of No harm To self/ others, Decreased Aggression, rn long term care goals to return to previous living setting vs placement. Continue to assess patient for changes in above assessment. Monitor for medication needs, pain, and safety concerns. Hourly rounding performed to ensure safe environment.
[2016-07-08] MEDS: busPIRone 10 MG TABLET. PO SCH ×2 (14:06→19:34)
[2016-07-08 15:49] VITALS: BP 100/64
--- NOTE | 2016-07-08 20:10 | NUR ---
Behavior Intervention Response and Plan: BIRP Note: Behavior: Assumed Care of patient, patient located in Quiet Room at shift change. Patient exhibited the following behavior Labile Mood alternating between Calm, irritable, and anxious, Disorganized, Confused, Resistive to care and medications. Brief assessment on rounds of vital signs, medication needs, lab studies, and pain. Treatment plan problems: Dementia with BD and Fall Risk . Intervention: Patient assessed and the following interventions initiated safety checks 15 Minute Checks Cognitive Assessment , Head to toe Assessment , Medications, oral hydration, Nutrition, and ADLs. Response: After interactions and interventions patient responded in the following manner, Calm , Cooperative ,Compliant, Interactive. Continue to assess behaviors and condition will continue to monitor throughout the shift as needed. 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 Continue to assess patient for changes in above assessment. Monitor for medication needs, pain, and safety concerns. Hourly rounding performed to ensure safe environment.
--- NOTE | 2016-07-08 20:17 | PDOC ---
Exam Tor Demential Exam: Tor Note: Please also refer to the separate dictated note~for this date of service dictated separately.~Patient seen individually. Discussed the patient with Nursing staff reviewed the chart.~Reviewed interim history and current functioning. Reviewed vital signs,~Labs/ Radiology~and current medications noted below. Continue current treatment with the changes noted in the dictated addendum note Assessment: Vital Signs: Vital Signs Date Time Temp Pulse Resp B/P (MAP) Pulse Ox O2 Delivery O2 Flow Rate FiO2 07/08/16 15:49 98.2 104 22 100/64 (76) 95 I&O Intake and Output 07/08/16 07:00 Intake Total 1200 ml Balance 1200 ml Intake Oral 1200 ml # Voids 1 Current Medications: Meds: Current Medications Alprazolam (Xanax) 0.5 mg PRN Q6HRS PRN PO ANXIETY / AGITATION Last administered on 07/08/16 19:34; Start 06/28/16 at 23:15 Donepezil HCl (Aricept) 20 mg DAILY PO Last administered on 07/08/16 08:59; Start 06/29/16 at 09:00 Escitalopram Oxalate (Lexapro) 20 mg DAILY PO Last administered on 07/04/16 08 :52; Start 06/29/16 at 09:00; Stop 07/04/16 at 18:24; Status DC Lorazepam (Ativan) 1 mg PRN Q4HRS PRN PO ANXIETY / AGITATION Last administered on 07/03/16 20:48; Start 06/28/16 at 23:15; Stop 07/04/16 at 18:24; Status DC Quetiapine Fumarate (SEROquel) 50 mg TID PO Last administered on 06/30/16 13: 17; Start 06/29/16 at 09:00; Stop 06/30/16 at 18:08; Status DC Buspirone HCl (Buspar) 7.5 mg BID PO Last administered on 07/02/16 07:39; Start 06/29/16 at 09:00; Stop 07/02/16 at 17:55; Status DC Multi-Ingredient Ointment (Analgesic [place]) 1 neil PRN QID PRN TP MUSCLE PAIN; Start 06/28/16 at 23:15 Acetaminophen (Tylenol) 650 mg PRN Q6HRS PRN PO prn Last administered on 07:48; Start 06/29/16 at 07:15 Dexamethasone (Decadron) 4 mg DAILY PO Last administered on 07/08/16 08:59; Start 06/29/16 at 09:00 Dicyclomine HCl (Bentyl) 10 mg PRN TID PRN PO stomach spasm Last administered on 06/30/16 07:45; Start 06/29/16 at 07:15 Docusate Sodium (Colace) 100 mg DAILY PO Last administered on 07/08/16 08:59; Start 06/29/16 at 09:00 Hyoscyamine (Anaspaz) 0.125 mg PRN Q2HR PRN PO SECRETIONS Last administered on 06/30/16 07:46; Start 06/29/16 at 07:30 Pantoprazole Sodium (Protonix) 40 mg DAILYAC PO Last administered on 07/08/16 08:59; Start 06/29/16 at 07:30 Famotidine (Pepcid) 20 mg DAILY PO Last administered on 07/08/16 08:59; Start 06/29/16 at 09:00 Quetiapine Fumarate (SEROquel) 25 mg BID92 PO Last administered on 07/08/16 14: 06; Start 07/01/16 at 09:00 Quetiapine Fumarate (SEROquel) 50 mg QHS PO Last administered on 07/08/16 19:32 ; Start 06/30/16 at 21:00 Buspirone HCl (Buspar) 7.5 mg TID PO Last administered on 07/08/16 08:59; Start 07/02/16 at 21:00; Stop 07/08/16 at 12:27; Status DC Vitamin D (Vitamin D3) 50,000 unit WEEKLY PO Last administered on 07/05/16 07: 48; Start 07/05/16 at 09:00 Escitalopram Oxalate (Lexapro) 10 mg DAILY PO Last administered on 07/08/16 08: 58; Start 07/05/16 at 09:00 Buspirone HCl (Buspar) 10 mg TID PO Last administered on 07/08/16 19:34; Start 07/08/16 at 14:00 Active Scripts Active Reported Alprazolam 0.5 Mg Tablet 0.5 Mg PO PRN Q6HRS PRN LAST DOSE GIVEN: DATE: TIME: NEXT DOSE DUE: DATE: TIME: Buspirone Hcl 7.5 Mg Tablet 7.5 Mg PO BID LAST DOSE GIVEN: DATE: TIME: NEXT DOSE DUE: DATE: TIME: Seroquel (Quetiapine Fumarate) 50 Mg Tablet 50 Mg PO TID LAST DOSE GIVEN: DATE: TIME: NEXT DOSE DUE: DATE: TIME: Levbid (Hyoscyamine Sulfate) 0.375 Mg Tab.er.12h 0.125 Mg PO Q2HR PRN Lorazepam 1 Mg Tablet 1 Mg PO Q4HRS PRN LAST DOSE GIVEN: DATE: TIME: NEXT DOSE DUE: DATE: TIME: Dicyclomine Hcl 10 Mg Capsule 10 Mg PO TID PRN Tylenol (Acetaminophen) 325 Mg Tablet 650 Mg PO Q6HRS PRN LAST DOSE GIVEN: DATE: TIME: NEXT DOSE DUE: DATE: TIME: Ranitidine Hcl 15 Mg/1 Ml Syrup 75 Mg PO DAILY Omeprazole 40 Mg Capsule.dr 40 Mg PO DAILY Escitalopram Oxalate 20 Mg Tablet 20 Mg PO DAILY Aricept (Donepezil Hcl) 10 Mg Tablet 20 Mg PO DAILY Dexamethasone 4 Mg Tablet 4 Mg PO DAILY Colace (Docusate Sodium) 100 Mg Capsule 50 Mg PO BID Diagnosis: Problems: (1) Anxiety disorder (2) Dementia in Alzheimer's disease with delusions (3) Dementia in Alzheimer's disease with depression (4) Dementia, vascular, with delusions (5) Dementia, vascular, with depression (6) Impulse control disorder MARJ FELICIANO MD July 08, 2016 20:17
[2016-07-09 06:30] VITALS: BP 208/130
[2016-07-09] MEDS: DOCUSATE SODIUM 100 MG CAPSULE PO SCH (08:01)
[2016-07-09] MEDS: ESCITALOPRAM 10 MG TABLET. PO SCH (08:01)
[2016-07-09] MEDS: PANTOPRAZOLE 40 MG TABLET. PO SCH (08:01)
[2016-07-09] MEDS: FAMOTIDINE 20 MG TABLET PO SCH (08:01)
[2016-07-09] MEDS: busPIRone 10 MG TABLET. PO SCH ×3 (08:02→19:48)
[2016-07-09] MEDS: QUEtiapine 25 MG TABLET. PO SCH ×3 (08:02→19:48)
[2016-07-09] MEDS: DEXAMETHASONE 4 MG TABLET PO SCH (08:02)
[2016-07-09] MEDS: DONEPEZIL HCL 10 MG TABLET PO SCH (08:02)
[2016-07-09] MEDS: ALPRAZolam 0.5 MG TABLET PO PRN (08:03)
--- NOTE | 2016-07-09 09:49 | NUR ---
Behavior Intervention Response and Plan: BIRP Note: Behavior: Assumed Care of patient, patient located in Dining Room at shift change. Patient exhibited the following behavior Disorganized, Irritable, Resistive. Brief assessment on rounds of vital signs, medication needs, lab studies, and pain. Treatment plan problems . Intervention: Patient assessed and the following interventions initiated safety checks 15 Minute Checks Cognitive Assessment , Head to toe Assessment , Medications. Response: After interactions and interventions patient responded in the following manner, Disorganized , Compulsive ,Compliant. Continue to assess behaviors and condition will continue to monitor throughout the shift as needed. 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 Continue to assess patient for changes in above assessment. Monitor for medication needs, pain, and safety concerns. Hourly rounding performed to ensure safe environment.
[2016-07-09 13:41] VITALS: BP 100/60
--- NOTE | 2016-07-09 15:13 | NUR ---
Pt up adl. compliant with meds. hard to redirect at times. incontinent of bladder at times.
[2016-07-09 15:46] VITALS: BP 100/60
--- NOTE | 2016-07-09 20:07 | PDOC ---
Exam Tor Demential Exam: Tor Note: Please also refer to the separate dictated note~for this date of service dictated separately.~Patient seen individually. Discussed the patient with Nursing staff reviewed the chart.~Reviewed interim history and current functioning. Reviewed vital signs,~Labs/ Radiology~and current medications noted below. Continue current treatment with the changes noted in the dictated addendum note Assessment: Vital Signs: Vital Signs Date Time Temp Pulse Resp B/P (MAP) Pulse Ox O2 Delivery O2 Flow Rate FiO2 07/09/16 15:46 97.6 75 16 100/60 (73) 99 I&O Intake and Output 07/09/16 07:00 Intake Total 600 ml Balance 600 ml Intake Oral 600 ml # Voids 2 # Bowel Movements 1 Current Medications: Meds: Current Medications Alprazolam (Xanax) 0.5 mg PRN Q6HRS PRN PO ANXIETY / AGITATION Last administered on 07/09/16 08:03; Start 06/28/16 at 23:15 Donepezil HCl (Aricept) 20 mg DAILY PO Last administered on 07/09/16 08:02; Start 06/29/16 at 09:00 Escitalopram Oxalate (Lexapro) 20 mg DAILY PO Last administered on 07/04/16 08 :52; Start 06/29/16 at 09:00; Stop 07/04/16 at 18:24; Status DC Lorazepam (Ativan) 1 mg PRN Q4HRS PRN PO ANXIETY / AGITATION Last administered on 07/03/16 20:48; Start 06/28/16 at 23:15; Stop 07/04/16 at 18:24; Status DC Quetiapine Fumarate (SEROquel) 50 mg TID PO Last administered on 06/30/16 13: 17; Start 06/29/16 at 09:00; Stop 06/30/16 at 18:08; Status DC Buspirone HCl (Buspar) 7.5 mg BID PO Last administered on 07/02/16 07:39; Start 06/29/16 at 09:00; Stop 07/02/16 at 17:55; Status DC Multi-Ingredient Ointment (Analgesic [place]) 1 neil PRN QID PRN TP MUSCLE PAIN; Start 06/28/16 at 23:15 Acetaminophen (Tylenol) 650 mg PRN Q6HRS PRN PO prn Last administered on 07:48; Start 06/29/16 at 07:15 Dexamethasone (Decadron) 4 mg DAILY PO Last administered on 07/09/16 08:02; Start 06/29/16 at 09:00 Dicyclomine HCl (Bentyl) 10 mg PRN TID PRN PO stomach spasm Last administered on 06/30/16 07:45; Start 06/29/16 at 07:15 Docusate Sodium (Colace) 100 mg DAILY PO Last administered on 07/09/16 08:01; Start 06/29/16 at 09:00 Hyoscyamine (Anaspaz) 0.125 mg PRN Q2HR PRN PO SECRETIONS Last administered on 06/30/16 07:46; Start 06/29/16 at 07:30 Pantoprazole Sodium (Protonix) 40 mg DAILYAC PO Last administered on 07/09/16 08:01; Start 06/29/16 at 07:30 Famotidine (Pepcid) 20 mg DAILY PO Last administered on 07/09/16 08:01; Start 06/29/16 at 09:00 Quetiapine Fumarate (SEROquel) 25 mg BID92 PO Last administered on 07/09/16 13: 05; Start 07/01/16 at 09:00 Quetiapine Fumarate (SEROquel) 50 mg QHS PO Last administered on 07/09/16 19:48 ; Start 06/30/16 at 21:00 Buspirone HCl (Buspar) 7.5 mg TID PO Last administered on 07/08/16 08:59; Start 07/02/16 at 21:00; Stop 07/08/16 at 12:27; Status DC Vitamin D (Vitamin D3) 50,000 unit WEEKLY PO Last administered on 07/05/16 07: 48; Start 07/05/16 at 09:00 Escitalopram Oxalate (Lexapro) 10 mg DAILY PO Last administered on 07/09/16 08: 01; Start 07/05/16 at 09:00 Buspirone HCl (Buspar) 10 mg TID PO Last administered on 07/09/16 19:48; Start 07/08/16 at 14:00 Active Scripts Active Reported Alprazolam 0.5 Mg Tablet 0.5 Mg PO PRN Q6HRS PRN LAST DOSE GIVEN: DATE: TIME: NEXT DOSE DUE: DATE: TIME: Buspirone Hcl 7.5 Mg Tablet 7.5 Mg PO BID LAST DOSE GIVEN: DATE: TIME: NEXT DOSE DUE: DATE: TIME: Seroquel (Quetiapine Fumarate) 50 Mg Tablet 50 Mg PO TID LAST DOSE GIVEN: DATE: TIME: NEXT DOSE DUE: DATE: TIME: Levbid (Hyoscyamine Sulfate) 0.375 Mg Tab.er.12h 0.125 Mg PO Q2HR PRN Lorazepam 1 Mg Tablet 1 Mg PO Q4HRS PRN LAST DOSE GIVEN: DATE: TIME: NEXT DOSE DUE: DATE: TIME: Dicyclomine Hcl 10 Mg Capsule 10 Mg PO TID PRN Tylenol (Acetaminophen) 325 Mg Tablet 650 Mg PO Q6HRS PRN LAST DOSE GIVEN: DATE: TIME: NEXT DOSE DUE: DATE: TIME: Ranitidine Hcl 15 Mg/1 Ml Syrup 75 Mg PO DAILY Omeprazole 40 Mg Capsule.dr 40 Mg PO DAILY Escitalopram Oxalate 20 Mg Tablet 20 Mg PO DAILY Aricept (Donepezil Hcl) 10 Mg Tablet 20 Mg PO DAILY Dexamethasone 4 Mg Tablet 4 Mg PO DAILY Colace (Docusate Sodium) 100 Mg Capsule 50 Mg PO BID Diagnosis: Problems: (1) Anxiety disorder (2) Dementia in Alzheimer's disease with delusions (3) Dementia in Alzheimer's disease with depression (4) Dementia, vascular, with delusions (5) Dementia, vascular, with depression (6) Impulse control disorder MARJ FELICIANO MD July 09, 2016 20:07
--- NOTE | 2016-07-09 23:15 | NUR ---
Behavior Intervention Response and Plan: BIRP Note: Behavior: Assumed Care of patient, patient located in Hallway at shift change. Patient exhibited the following behavior Restless, Anxious, Agitated. Brief assessment on rounds of vital signs, medication needs, lab studies, and pain. Treatment plan problems Dementia with BD and Fall Risk. Intervention: Patient assessed and the following interventions initiated safety checks 15 Minute Checks Cognitive Assessment , Head to toe Assessment , Medications. Response: After interactions and interventions patient responded in the following manner, Wandering , Restless ,Resistive. Continue to assess behaviors and condition will continue to monitor throughout the shift as needed. 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 Continue to assess patient for changes in above assessment. Monitor for medication needs, pain, and safety concerns. Hourly rounding performed to ensure safe environment.
--- NOTE | 2016-07-10 06:03 | PN ---
DATE: 07/08/2016 PSYCHIATRIC PROGRESS NOTE This late entry for 07/08/2016 covers elements not covered in my initial note. SUBJECTIVE: The patient was also staffed at treatment team meeting with the entire team. The patient's , Olivia, attended the conference as well. The patient remains confused, difficult to redirect, otherwise friendly. On the , he was combative with showers. I had a lengthy treatment team meeting. had very specific questions for detailed behaviors during the day. On 07/07/2016, he barricaded himself in the room with another demented patient. REVIEW OF SYSTEMS: No CV, , pulmonary, eye, ENT system symptoms on review. Reliability poor. MENTAL STATUS EXAM: Oriented to himself. Insight, judgment, recent and remote memory, attention, concentration, fund of knowledge poor, consistent with his diagnosis. IMPRESSION: Major neurocognitive disorder, Alzheimer's, vascular with depression, delusion, behavioral disturbance. Rest unchanged. PLAN: Increase BuSpar from 7.5 mg t.i.d. to 10 mg t.i.d. Continue Aricept 20 mg a day, Lexapro 10 mg a day, Seroquel 25 mg b.i.d. and 50 mg at bedtime, Xanax p.r.n. Consider Depakote as a mood stabilizer; but for now, we will see how he does with the increased BuSpar. MARJ FELICIANO MD DR: STACEY/fe JOB#: [id number] / [id number]
[2016-07-10 06:28] VITALS: BP 138/66
[2016-07-10] MEDS: PANTOPRAZOLE 40 MG TABLET. PO SCH (07:53)
[2016-07-10] MEDS: busPIRone 10 MG TABLET. PO SCH ×2 (07:54→14:46)
[2016-07-10] MEDS: DONEPEZIL HCL 10 MG TABLET PO SCH (07:54)
[2016-07-10] MEDS: DOCUSATE SODIUM 100 MG CAPSULE PO SCH (07:54)
[2016-07-10] MEDS: DEXAMETHASONE 4 MG TABLET PO SCH (07:59)
[2016-07-10] MEDS: FAMOTIDINE 20 MG TABLET PO SCH (07:59)
[2016-07-10] MEDS: QUEtiapine 25 MG TABLET. PO SCH ×2 (07:59→14:46)
[2016-07-10] MEDS: ESCITALOPRAM 10 MG TABLET. PO SCH (07:59)
[2016-07-10 08:18] LABS: BASO % 1 % (0-3); EOS # 0.1 x10^3/uL (0.0-0.7); EOS % 1 % (0-3); HEMATOCRIT 35.9 % (39.0-53.0); LYMPH # 1.8 x10^3/uL (1.0-4.8); LYMPH % 24 % (24-48); MEAN CORPUSCULAR HEMOGLOBIN 33 pg (25-35); MEAN CORPUSCULAR HGB CONC 34 g/dL (31-37); MEAN CORPUSCULAR VOLUME 98 fL (79-100); MONO # 0.6 x10^3/uL (0.0-1.1); MONO % 7 % (0-9); NEUT # 5.1 x10^3uL (1.8-7.7); NEUT % 67 % (31-73); PLATELET COUNT 259 x10^3/uL (140-400); RED BLOOD COUNT 3.68 x10^6/uL (4.30-5.70); RED CELL DISTRIBUTION WIDTH 15.5 % (11.5-14.5); WHITE BLOOD COUNT 7.7 x10^3/uL (4.0-11.0)
[2016-07-10 08:19] LABS: ALBUMIN 2.9 g/dL (3.4-5.0); ALBUMIN/GLOBULIN RATIO 0.7 (1.0-1.7); CALCIUM 8.9 mg/dL (8.5-10.1); CREATININE 1.5 mg/dL (0.7-1.3); GFR 46.4; POTASSIUM 4.9 mmol/L (3.5-5.1); TOTAL BILIRUBIN 0.3 mg/dL (0.2-1.0); TOTAL PROTEIN 6.8 g/dL (6.4-8.2)
--- NOTE | 2016-07-10 10:30 | NUR ---
Behavior Intervention Response and Plan: BIRP Note: Behavior: Assumed Care of patient, patient located in Dining Room at shift change. Patient exhibited the following behavior Disorganized, confused, difficult to redirect, yelling out with cares. Brief assessment on rounds of vital signs, medication needs, lab studies, and pain. Treatment plan problems . Intervention: Patient assessed and the following interventions initiated safety checks 15 Minute Checks Cognitive Assessment , Head to toe Assessment , Medications. Response: After interactions and interventions patient responded in the following manner, Disorganized, impulsive, confused, put self on floor and took a nap. Continue to assess behaviors and condition will continue to monitor throughout the shift as needed. Plan: Continue to monitor Master Treatment Plan for patient's progress toward short term goals of Decreased Agitation, Decreased Aggression, half-way goals to return to previous living setting vs placement. Continue to assess patient for changes in above assessment. Monitor for medication needs, pain, and safety concerns. Hourly rounding performed to ensure safe environment.
[2016-07-10 16:07] VITALS: BP 123/59
--- NOTE | 2016-07-10 19:00 | NUR ---
Nursing Note: Pt in hallway on the floor and attempted to stand, pt then hit his nose on the floor and noted to be bleeding, staff out to assist pt into w/c, pt then began having seizure like activity, pt assisted back to the floor, pillow placed under his head, Rapid response called, Seizure like activity continued for approximately 1.5 minutes, pt then became very pale in color with deep sonorous respirations, Pt remains unresponsive to attempts to arouse. supervisor [employer] products and ICU nurse on unit, pt placed on a blanket and transferred to a bed. BP 198/91, Call placed to Dr. Encarnacion, informed of the above events, orders received as follows: CT head, Consult Dr. Bah, Discharge to ICU with DX: Syncopal Episode and Hypertensive Urgency. Orders processed, Pt then transferred to ICU at this time.
--- NOTE | 2016-07-10 19:04 | PDOC ---
Exam Tor Demential Exam: Tor Note: Please also refer to the separate dictated note~for this date of service dictated separately.~Patient seen individually. Discussed the patient with Nursing staff reviewed the chart.~Reviewed interim history and current functioning. Reviewed vital signs,~Labs/ Radiology~and current medications noted below. Continue current treatment with the changes noted in the dictated addendum note Assessment: Vital Signs: Vital Signs Date Time Temp Pulse Resp B/P (MAP) Pulse Ox O2 Delivery O2 Flow Rate FiO2 07/10/16 16:07 97.8 78 20 123/59 (80) 98 I&O Intake and Output 07/10/16 07:00 Intake Total 720 ml Balance 720 ml Intake Oral 720 ml # Voids 2 Labs: Laboratory Tests Test 07/10/16 07:52 White Blood Count 7.7 x10^3/uL (4.0-11.0) Red Blood Count 3.68 x10^6/uL (4.30-5.70) L Hemoglobin 12.0 g/dL (13.0-17.5) L Hematocrit 35.9 % (39.0-53.0) L Mean Corpuscular Volume 98 fL (79-100) Mean Corpuscular Hemoglobin 33 pg (25-35) Mean Corpuscular Hemoglobin Concent 34 g/dL (31-37) Red Cell Distribution Width 15.5 % (11.5-14.5) H Platelet Count 259 x10^3/uL (140-400) Neutrophils (%) (Auto) 67 % (31-73) Lymphocytes (%) (Auto) 24 % (24-48) Monocytes (%) (Auto) 7 % (0-9) Eosinophils (%) (Auto) 1 % (0-3) Basophils (%) (Auto) 1 % (0-3) Neutrophils # (Auto) 5.1 x10^3uL (1.8-7.7) Lymphocytes # (Auto) 1.8 x10^3/uL (1.0-4.8) Monocytes # (Auto) 0.6 x10^3/uL (0.0-1.1) Eosinophils # (Auto) 0.1 x10^3/uL (0.0-0.7) Basophils # (Auto) 0.0 x10^3/uL (0.0-0.2) Sodium Level 145 mmol/L (136-145) Potassium Level 4.9 mmol/L (3.5-5.1) Chloride Level 106 mmol/L (98-107) Carbon Dioxide Level 34 mmol/L (21-32) H Anion Gap 5 (6-14) L Blood Urea Nitrogen 40 mg/dL (8-26) H Creatinine 1.5 mg/dL (0.7-1.3) H Estimated GFR (Cockcroft-Gault) 46.4 BUN/Creatinine Ratio 27 (6-20) H Glucose Level 96 mg/dL (70-99) Calcium Level 8.9 mg/dL (8.5-10.1) Magnesium Level 2.2 mg/dL (1.8-2.4) Total Bilirubin 0.3 mg/dL (0.2-1.0) Aspartate Amino Transferase (AST) 16 U/L (15-37) Alanine Aminotransferase (ALT) 33 U/L (16-63) Alkaline Phosphatase 100 U/L (46-116) Total Protein 6.8 g/dL (6.4-8.2) Albumin 2.9 g/dL (3.4-5.0) L Albumin/Globulin Ratio 0.7 (1.0-1.7) L Current Medications: Meds: Current Medications Alprazolam (Xanax) 0.5 mg PRN Q6HRS PRN PO ANXIETY / AGITATION Last administered on 07/09/16 08:03; Start 06/28/16 at 23:15 Donepezil HCl (Aricept) 20 mg DAILY PO Last administered on 07/10/16 07:54; Start 06/29/16 at 09:00 Escitalopram Oxalate (Lexapro) 20 mg DAILY PO Last administered on 07/04/16 08 :52; Start 06/29/16 at 09:00; Stop 07/04/16 at 18:24; Status DC Lorazepam (Ativan) 1 mg PRN Q4HRS PRN PO ANXIETY / AGITATION Last administered on 07/03/16 20:48; Start 06/28/16 at 23:15; Stop 07/04/16 at 18:24; Status DC Quetiapine Fumarate (SEROquel) 50 mg TID PO Last administered on 06/30/16 13: 17; Start 06/29/16 at 09:00; Stop 06/30/16 at 18:08; Status DC Buspirone HCl (Buspar) 7.5 mg BID PO Last administered on 07/02/16 07:39; Start 06/29/16 at 09:00; Stop 07/02/16 at 17:55; Status DC Multi-Ingredient Ointment (Analgesic [place]) 1 neil PRN QID PRN TP MUSCLE PAIN; Start 06/28/16 at 23:15 Acetaminophen (Tylenol) 650 mg PRN Q6HRS PRN PO prn Last administered on 07:48; Start 06/29/16 at 07:15 Dexamethasone (Decadron) 4 mg DAILY PO Last administered on 07/10/16 07:59; Start 06/29/16 at 09:00 Dicyclomine HCl (Bentyl) 10 mg PRN TID PRN PO stomach spasm Last administered on 06/30/16 07:45; Start 06/29/16 at 07:15 Docusate Sodium (Colace) 100 mg DAILY PO Last administered on 07/10/16 07:54; Start 06/29/16 at 09:00 Hyoscyamine (Anaspaz) 0.125 mg PRN Q2HR PRN PO SECRETIONS Last administered on 06/30/16 07:46; Start 06/29/16 at 07:30 Pantoprazole Sodium (Protonix) 40 mg DAILYAC PO Last administered on 07/10/16 07:53; Start 06/29/16 at 07:30 Famotidine (Pepcid) 20 mg DAILY PO Last administered on 07/10/16 07:59; Start 06/29/16 at 09:00 Quetiapine Fumarate (SEROquel) 25 mg BID92 PO Last administered on 07/10/16 14: 46; Start 07/01/16 at 09:00 Quetiapine Fumarate (SEROquel) 50 mg QHS PO Last administered on 07/09/16 19:48 ; Start 06/30/16 at 21:00 Buspirone HCl (Buspar) 7.5 mg TID PO Last administered on 07/08/16 08:59; Start 07/02/16 at 21:00; Stop 07/08/16 at 12:27; Status DC Vitamin D (Vitamin D3) 50,000 unit WEEKLY PO Last administered on 07/05/16 07: 48; Start 07/05/16 at 09:00 Escitalopram Oxalate (Lexapro) 10 mg DAILY PO Last administered on 07/10/16 07: 59; Start 07/05/16 at 09:00 Buspirone HCl (Buspar) 10 mg TID PO Last administered on 07/10/16 14:46; Start 07/08/16 at 14:00 Active Scripts Active Reported Alprazolam 0.5 Mg Tablet 0.5 Mg PO PRN Q6HRS PRN LAST DOSE GIVEN: DATE: TIME: NEXT DOSE DUE: DATE: TIME: Buspirone Hcl 7.5 Mg Tablet 7.5 Mg PO BID LAST DOSE GIVEN: DATE: TIME: NEXT DOSE DUE: DATE: TIME: Seroquel (Quetiapine Fumarate) 50 Mg Tablet 50 Mg PO TID LAST DOSE GIVEN: DATE: TIME: NEXT DOSE DUE: DATE: TIME: Levbid (Hyoscyamine Sulfate) 0.375 Mg Tab.er.12h 0.125 Mg PO Q2HR PRN Lorazepam 1 Mg Tablet 1 Mg PO Q4HRS PRN LAST DOSE GIVEN: DATE: TIME: NEXT DOSE DUE: DATE: TIME: Dicyclomine Hcl 10 Mg Capsule 10 Mg PO TID PRN Tylenol (Acetaminophen) 325 Mg Tablet 650 Mg PO Q6HRS PRN LAST DOSE GIVEN: DATE: TIME: NEXT DOSE DUE: DATE: TIME: Ranitidine Hcl 15 Mg/1 Ml Syrup 75 Mg PO DAILY Omeprazole 40 Mg Capsule.dr 40 Mg PO DAILY Escitalopram Oxalate 20 Mg Tablet 20 Mg PO DAILY Aricept (Donepezil Hcl) 10 Mg Tablet 20 Mg PO DAILY Dexamethasone 4 Mg Tablet 4 Mg PO DAILY Colace (Docusate Sodium) 100 Mg Capsule 50 Mg PO BID Diagnosis: Problems: (1) Anxiety disorder (2) Dementia in Alzheimer's disease with delusions (3) Dementia in Alzheimer's disease with depression (4) Dementia, vascular, with delusions (5) Dementia, vascular, with depression (6) Impulse control disorder MARJ FELICIANO MD July 10, 2016 19:03
--- NOTE | 2016-07-10 19:20 | NUR ---
Spoke with who stated he has had a seizures in the past and his last one was about a month ago at his skilled nursing. declined CT of head as she will not change his course of treatment. also confirmed pt is a DNR.
--- NOTE | 2016-07-10 19:35 | NUR ---
Discharge Note [facility] Patient is not currently a tobacco user. Follow up Appointment made: Date and Time 07/10/2016 4385 instructions and Social Work Discharge planning sheet sent to next level of care. [facility] contact Number for 24 hour support [phone] Discharge Packet Sent, and discusssed with patient and caregiver that includes Copies from the record of current medications with indications and frequencies, history and physical, Psychiatric Eval with reason and justification for admission, Lab values, Radiology results , follow up instructions for continuation of care, and Social Work discharge planning form: yes Discharge Packet Faxed to Provider/Next Level of Care:yes Discharge Packet Faxed with discharge Order and Discharge diagnosis sent to: Discharge Packet Discussed, and report Given to: Discharge instruction sheet was included in the packet and sent with the patient upon discharge. Any Pending lab results can be obtained by calling [phone] Discharge Summary will be sent to next care provider when available. This includes the reason for admission, DC diagnosis, and next level of care recommendations.
[2016-07-10] MEDS ORDERED: CHOL500016 PO (20:17)
[2016-07-10] MEDS ORDERED: FAMO20TA5 PO (20:23)
[2016-07-10] MEDS ORDERED: METH29OI TP (20:24)
[2016-07-10] MEDS ORDERED: QUET50TA5 PO (20:26)
[2016-07-10] MEDS ORDERED: BUSP10TA PO (20:27)
--- NOTE | 2016-07-11 10:16 | CONS ---
DATE OF CONSULTATION: 07/10/2016 INITIAL REFERRING PHYSICIAN: DAJA VEE DO REASON FOR CONSULTATION: Breakthrough seizure. HISTORY OF PRESENT ILLNESS: This is a 70-year-old male who was admitted to geriatric psychiatric unit on 06/29/2016 after he presented with a history of behavior disturbances, agitations, and combativeness. The patient was transferred from memory unit care for further psychiatric care. Neuro consult was requested today after he had a seizure described as generalized tonic-clonic seizure with foaming at the mouth and falling to the floor, then he became postictally unresponsive. According to the nursing staff and family members, the patient had 2 generalized tonic-clonic seizure described as "grand mal" in the last 4 months. The last was in 06/2016. He has not been on any anticonvulsants. The patient has a vascular dementia and currently is very agitated and unable to cooperate, give any information or cooperate with the examination. He has not had any recurrent seizures since transferred to ICU today. According to the nursing staff in the geropsychiatric UNIT the patient did have a seizure described as grand mal type. PAST MEDICAL HISTORY: Significant for TIA, seizure disorders, anxiety, chronic low back pain, and dementia. PAST SURGICAL HISTORY: Unremarkable. SOCIAL HISTORY: The patient is a resident at [facility], [place]. He has no history of smoking, alcohol drinking, or illicit drug use. CURRENT MEDICATIONS: Vitamin D 250 units p.o. weekly, Keppra 500 mg b.i.d., Seroquel 25 mg p.o. b.i.d., Pepcid 25 mg daily, Lexapro 10 mg daily, donepezil 20 mg daily, Colace 100 mg p.o. daily, Decadron 4 mg p.o. daily, BuSpar 10 mg t.i.d., Protonix 40 mg p.o. daily, Seroquel 50 mg at bedtime, hyoscyamine 0.125 mg q 2 hours p.r.n., alprazolam 0.5 mg q 6 hours p.r.n., Tylenol p.r.n., lorazepam 1 mg q 1 hour p.r.n. for the tremor, Vistaril 25 mg at bedtime for itching. ALLERGIES: TETANUS, VACCINE AND TOXOID. REVIEW OF SYSTEMS: Not able to obtain as the patient is very agitated at this time. PHYSICAL EXAMINATION: GENERAL: Well-developed, well-nourished, white male, not in acute distress. He weighs 133 pounds. VITAL SIGNS: Blood pressure 119/65, respiratory rate 13, pulse is 82 and regular, temperature 97.6, oxygen saturation 97% on room air. Currently the patient is agitated, otherwise none . NEUROLOGIC: Can be achieved at this time because of severe agitation and combativeness behaviors of the patient Therefore, we will decide to come back in morning. LABORATORY DATA: CBC revealed white blood cells of 7.6 thousand, hemoglobin 12.9, hematocrit 38.5, platelet count 309,000. Chemistry revealed sodium of 142, potassium 4, chloride 104, CO2 16, BUN 37, and creatinine 1.7. Glucose 150. Lactic acid is high at 14.8, calcium 8.6, magnesium 2.6. Liver enzymes are normal. Troponin level is less than 0.017. IMPRESSION: 1. Probably breakthrough seizure. The patient has history of seizure disorder and he has 2 seizures in the last 4 months and today he had an additional seizure described as generalized tonic-clonic seizure. 2. Renal failure/venous insufficiency. 3. History of anxiety and depression. 4. Dementia of vascular type. 5. Behavior disturbances described as agitation and combativeness. 6. Chronic low back pain. 7. Gastroesophageal reflux disease. RECOMMENDATION: 1. Start the patient on loading dose of Keppra at 1000 mg IV for tonight. We would come back in the morning and reevaluate the patient and started him on Keppra 500 mg p.o. b.i.d. 2. Electroencephalogram. 3. Rule out systemic infections with very high lactic acid. 4. The patient needs IV fluid for renal insufficiency, dehydration and possible renal failure. M Mohit SUAREZ MD DR: LISANDRA/fe JOB#: [id number] / [id number]
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
== END 2016-07-10 19:05 | disposition short-term general hospital (02) | DRG 56 ==
LOC: GEROPSY 20:18
PROVIDERS: ADMIT Psychiatry & Neurology Psychiatry; ATTEND Psychiatry & Neurology Psychiatry
DX: G30.9 Alzheimer's disease, unspecified (principal); E43 Unspecified severe protein-calorie malnutrition; F01.51 Vascular dementia, unspecified severity, with behavioral disturbance; F02.81 Dementia in other diseases classified elsewhere, unspecified severity, with behavioral disturbance; E78.5 Hyperlipidemia, unspecified; F32.9 Major depressive disorder, single episode, unspecified; F41.9 Anxiety disorder, unspecified; F63.9 Impulse disorder, unspecified; G40.409 Other generalized epilepsy and epileptic syndromes, not intractable, without status epilepticus; G89.4 Chronic pain syndrome; I87.2 Venous insufficiency (chronic) (peripheral); K21.9 Gastro-esophageal reflux disease without esophagitis; K22.70 Barrett's esophagus without dysplasia; K59.09 Other constipation; N19 Unspecified kidney failure; Z66 Do not resuscitate; Z79.899 Other long term (current) drug therapy; Z86.73 Personal history of transient ischemic attack (TIA), and cerebral infarction without residual deficits; M54.5 Low back pain; Z88.7 Allergy status to serum and vaccine; Z68.21 Body mass index [BMI] 21.0-21.9, adult
CPT/HCPCS: 36415; 80053; 80061; 80164; 82306; 83036; 83735; 84436; 84443; 84480; 85027; 86592; 86593; J8540

== ENCOUNTER 2016-07-10 19:51 | Inpatient (IN) | payer MEDICARE ==
[~2016-07-10] VITALS: Ht 170.2 cm; Wt 62.1 kg
[2016-07-10 18:55] VITALS: BP 146/77
[2016-07-10 19:21] VITALS: BP 119/65
[~2016-07-10 19:51] MED LIST: ACET325T9 PO; ALPR0.5T6 PO; BUSP7.5T PO; DEXA4TAB PO; DICY10CA3 PO; DOCU-109 PO; DONE10TA61 PO; ESCI20TA PO; HYOS0.3715 PO; LORA1TAB PO; OMEP40CA5 PO; QUET50TA5 PO; RANI15SY PO
[2016-07-10] MEDS ORDERED: LORazepam 2 MG/ML VIAL IV PRN (20:15)
[2016-07-10] MEDS ORDERED: CHOL500016 PO (20:17)
[2016-07-10 20:21] VITALS: BP 143/76
[2016-07-10] MEDS ORDERED: FAMO20TA5 PO (20:23)
--- NOTE | 2016-07-10 20:23 | EKG ---
[address] [address] Test Date: 2016-07-10 Test Time: 19:09:13 Pat Name: JEY SIMENTAL Department: Room: ICU03 1 Gender: M Film Sorter: SHAILESH : 1945 Requested By: DAJA VEE Order Number: [id number] Reading MD: Anand Reilly Measurements Intervals [place] Rate: 87 P: 61 [place]: 168 QRS: 11 QRSD: 88 T: 43 QT: 368 QTc: 449 Interpretive Statements SINUS RHYTHM NON-SPECIFIC ST/T CHANGES Electronically Signed On 07-19-2016 8:46:24 CDT by Anand Reilly
[2016-07-10] MEDS ORDERED: METH29OI TP (20:24)
[2016-07-10] MEDS ORDERED: QUET50TA5 PO (20:26)
[2016-07-10] MEDS ORDERED: BUSP10TA PO (20:27)
[2016-07-10] MEDS ORDERED: DICYCLOMINE HCL 10 MG CAPSULE PO PRN (20:30)
[2016-07-10] MEDS ORDERED: METHYL SALICYLATE/MENTHOL TOPICAL OINTMENT 29GM TUBE. TP PRN (20:30)
[2016-07-10 20:40] LABS: BASO % 0 % (0-3); EOS % 0 % (0-3); HEMATOCRIT 38.5 % (39.0-53.0); HEMOGLOBIN 12.9 g/dL (13.0-17.5); LYMPH # 1.7 x10^3/uL (1.0-4.8); LYMPH % 23 % (24-48); MEAN CORPUSCULAR HEMOGLOBIN 33 pg (25-35); MEAN CORPUSCULAR HGB CONC 33 g/dL (31-37); MEAN CORPUSCULAR VOLUME 100 fL (79-100); MONO # 0.3 x10^3/uL (0.0-1.1); MONO % 3 % (0-9); NEUT # 5.6 x10^3uL (1.8-7.7); NEUT % 74 % (31-73); PLATELET COUNT 309 x10^3/uL (140-400); RED BLOOD COUNT 3.84 x10^6/uL (4.30-5.70); RED CELL DISTRIBUTION WIDTH 15.4 % (11.5-14.5); WHITE BLOOD COUNT 7.6 x10^3/uL (4.0-11.0)
[2016-07-10] MEDS ORDERED: HYOSCYAMINE 0.125 MG TAB.RAPDIS PO PRN (20:45)
[2016-07-10 20:48] LABS: ALBUMIN/GLOBULIN RATIO 0.7 (1.0-1.7); CALCIUM 8.6 mg/dL (8.5-10.1); CREATININE 1.7 mg/dL (0.7-1.3); GFR 40.2; MAGNESIUM 2.6 mg/dL (1.8-2.4); TOTAL BILIRUBIN 0.3 mg/dL (0.2-1.0); TOTAL PROTEIN 7.3 g/dL (6.4-8.2)
[2016-07-10] MEDS: hydrOXYzine PAMOATE 25 MG CAPSULE PO PRN (20:49)
[2016-07-10] MEDS: QUEtiapine 50 MG TABLET. PO SCH (20:49)
[2016-07-10] MEDS: ACETAMINOPHEN 325 MG TABLET PO PRN (20:49)
[2016-07-10] MEDS ORDERED: IV NORMAL SALINE 1,000ML 1,000 ML IV ONE (21:15)
[2016-07-10] MEDS ORDERED: IV NORMAL SALINE 100ML 100 ML ONE (21:19)
[2016-07-10] MEDS ORDERED: levETIRAcetam 500 MG/5 ML VIAL IV ONE (21:19)
[2016-07-10 21:21] VITALS: BP 110/65
[2016-07-10 21:40] LABS: CREATINE KINASE 28 U/L (39-308)
[2016-07-10] MEDS ORDERED: MVI, ADULT NO.4 WITH VIT K 10 ML, FOLIC ACID SYRINGE for ER 1 MG, THIAMINE 100 MG in IV... IV ONE ×4 (22:00)
[2016-07-10 22:46] LABS: % BANDS 6 % (0-9); % LYMPHS 22 % (24-48); % MONOS 7 % (0-10); % SEGS 65 % (35-66)
[2016-07-10] MEDS ORDERED: IV DEXTROSE 5 %-0.45 % NACL 1,000 ML ONE (22:46)
[2016-07-10] MEDS ORDERED: THIAMINE 200 MG/2 ML VIAL. IV ONE (22:46)
[2016-07-10] MEDS ORDERED: MVI, ADULT NO.4 WITH VIT K 10 ML VIAL IV ONE (22:46)
[2016-07-10] MEDS ORDERED: FOLIC ACID 5 MG/ML SYRINGE for ER IV ONE (22:46)
[2016-07-10 22:50] LABS: PLT ESTIMATE ADEQUATE (ADEQUATE)
[2016-07-10 23:12] LABS: BILIRUBIN,URINE NEG (NEG); CLARITY,URINE CLEAR; COLOR,URINE YELLOW; GLUCOSE,URINE NEG (NEG)
[2016-07-10 23:13] LABS: BACTERIA,URINE 0 /HPF (0-FEW); NITRITE,URINE NEG (NEG); RBC,URINE RARE /HPF (0-2); SQUAMOUS EPITHELIAL CELL,UR OCC /LPF; UROBILINOGEN,URINE 0.2 mg/dL (0.2 mg/dL); WBC,URINE RARE /HPF (0-4)
[2016-07-10] MEDS: ALPRAZolam 0.5 MG TABLET PO PRN (23:30)
[2016-07-10 23:48] VITALS: BP 108/49
[2016-07-11] VITALS (13 sets, daily range): BP systolic 96–119; BP diastolic 43–65
[2016-07-11 06:23] LABS: BASO % 1 % (0-3); EOS % 0 % (0-3); HEMATOCRIT 34.4 % (39.0-53.0); HEMOGLOBIN 11.5 g/dL (13.0-17.5); LYMPH % 15 % (24-48); MEAN CORPUSCULAR HEMOGLOBIN 33 pg (25-35); MEAN CORPUSCULAR HGB CONC 33 g/dL (31-37); MEAN CORPUSCULAR VOLUME 98 fL (79-100); MONO # 0.5 x10^3/uL (0.0-1.1); MONO % 7 % (0-9); NEUT # 5.3 x10^3uL (1.8-7.7); NEUT % 77 % (31-73); PLATELET COUNT 236 x10^3/uL (140-400); RED BLOOD COUNT 3.53 x10^6/uL (4.30-5.70); RED CELL DISTRIBUTION WIDTH 15.4 % (11.5-14.5); WHITE BLOOD COUNT 6.9 x10^3/uL (4.0-11.0)
[2016-07-11 06:39] LABS: ALBUMIN 2.6 g/dL (3.4-5.0); ALBUMIN/GLOBULIN RATIO 0.7 (1.0-1.7); CALCIUM 8.2 mg/dL (8.5-10.1); CREATININE 1.1 mg/dL (0.7-1.3); GFR 66.4; MAGNESIUM 2.4 mg/dL (1.8-2.4); TOTAL BILIRUBIN 0.4 mg/dL (0.2-1.0); TOTAL PROTEIN 6.4 g/dL (6.4-8.2)
[2016-07-11] MEDS: QUEtiapine 25 MG TABLET. PO SCH ×2 (07:10→13:07)
[2016-07-11] MEDS: DEXAMETHASONE 4 MG TABLET PO SCH (08:46)
[2016-07-11] MEDS: DONEPEZIL HCL 10 MG TABLET PO SCH (08:46)
[2016-07-11] MEDS: ESCITALOPRAM 10 MG TABLET. PO SCH (08:46)
[2016-07-11] MEDS: busPIRone 10 MG TABLET. PO SCH ×3 (08:46→19:12)
[2016-07-11] MEDS: FAMOTIDINE 20 MG TABLET PO SCH (08:46)
[2016-07-11] MEDS: levETIRAcetam 500 MG TABLET PO SCH ×2 (08:46→19:12)
[2016-07-11] MEDS: PANTOPRAZOLE 40 MG TABLET. PO SCH (08:46)
[2016-07-11] MEDS ORDERED: METHYL SALICYLATE/MENTHOL TOPICAL OINTMENT 29GM TUBE. TP PRN (08:56)
[2016-07-11] MEDS ORDERED: DOCUSATE SODIUM 100 MG CAPSULE PO SCH (09:00)
--- NOTE | 2016-07-11 12:31 | HP ---
ADMIT DATE: 07/10/2016 This is a transfer down from the [facility] Unit. REASON FOR ADMISSION: To the medical floor to the ICU is seizure-like activity. HISTORY OF PRESENT ILLNESS: This is a 70-year-old male, who has been up on the Senior Behavior Unit since 06/28/2016. He does have a history of TIAs and seizures; however, yesterday morning, he got mad because he could not stay in the dining room and threw himself on the floor and I did observe him lying on the floor for a lengthy period of time. There was no evidence of any type of injury. Later on in the evening around 7, the patient was in the hallway and tried to stand. He hit his nose and had a little bit of a bloody nose and then appeared to have some seizure-like activity, which lasted one and half minutes. He was quite pale and then postictal and so was transported down to the ICU. His blood pressure at that time was 198/91. PAST MEDICAL HISTORY: TIA, seizures, chronic constipation, anxiety, chronic back pain, and vascular dementia. PAST SURGICAL HISTORY: Unremarkable. FAMILY HISTORY: Unknown. SOCIAL HISTORY: The patient is a resident at [facility]. He is . He was on the memory care unit. Apparently, he was also on hospice and was taken off to come to the [facility] Unit. I cannot verify that, however. ALLERGIES: TETANUS VACCINE and TOXOID. MEDICATIONS: Reviewed also and are available on the MAR. REVIEW OF SYSTEMS: The patient is alert to answers questions. He has no particular complaints except that he is a little bit cold. He is allowing exam and is being fed by the nursing staff and is complaining of being quite hungry. OBJECTIVE: VITAL SIGNS: Blood pressure this morning 102/54, pulse 56, respirations 11, and pulse ox is 96% on room air. GENERAL: The patient is alert, answering questions. He is calm and very pleasant currently. HEENT: His pupils are equal, round, and reactive to light. Extraocular muscles are intact. He has a slight bruise on the bridge of his nose and the nose is not bleeding. His tongue was moist. NECK: Supple. LUNGS: Clear. CARDIOVASCULAR: Regular rhythm and rate. There are some periods of bradycardia. ABDOMEN: Soft, nontender. EXTREMITIES: Without edema. Overall appearance is frail. He is underweight. NEUROLOGIC: Could not do cranial nerves as he would not cooperate. There is no seizure activity at the present time. LABORATORY DATA: His lactic acid was 1.7, 2.0, 2.3. CPK was 28, glucose 112. His initial lactic acid was 14.8, I believe that is a lab error or related to the seizure activity, one or the other. CO2 was 16 with a high anion gap, magnesium 2.6 with a CO2 is now normal and the gap is closed. ASSESSMENT: 1. Lactic acidosis secondary to seizure activity 2. Dementia with behavior disturbance. 3. Metabolic acidosis, now resolved. 4. Severe protein malnutrition with albumin of 2.6. 5. Acute kidney injury, now has resolved with IV fluids. 6. Hypomagnesemia, now resolved. 7. History of seizures. PLAN: Neurological consult. Continue to be followed by Dr. Barry and he did receive IV fluids, which resolved his current problem, declined the CT of the head and we will plan to transfer him back upstairs after being seen by Dr. Bah and EEG, if he will cooperate. DAJA VEE DO DR: SHAWANDA/fe JOB#: [id number] / [id number]
--- NOTE | 2016-07-11 14:52 | EKG ---
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
[2016-07-11] MEDS: ACETAMINOPHEN 325 MG TABLET PO PRN (19:12)
[2016-07-11] MEDS: hydrOXYzine PAMOATE 25 MG CAPSULE PO PRN (19:12)
[2016-07-11] MEDS: QUEtiapine 50 MG TABLET. PO SCH (19:12)
--- NOTE | 2016-07-11 19:36 | PDOC ---
Exam Tor Demential Exam: Tor Note: Please also refer to the separate dictated note~for this date of service dictated separately.~Patient seen individually. Discussed the patient with Nursing staff reviewed the chart.~Reviewed interim history and current functioning. Reviewed vital signs,~Labs/ Radiology~and current medications noted below. Continue current treatment with the changes noted in the dictated addendum note Assessment: Vital Signs: Vital Signs Date Time Temp Pulse Resp B/P (MAP) Pulse Ox O2 Delivery O2 Flow Rate FiO2 07/11/16 14:31 16 97/64 (75) 07/11/16 13:31 60 07/11/16 11:41 97 Room Air 07/10/16 19:21 97.6 I&O Intake and Output 07/11/16 07:00 Output Total 250 ml Balance -250 ml Output Urine Total 250 ml # Voids 2 Labs: Laboratory Tests Test 07/10/16 22:50 07/10/16 23:00 07/11/16 06:00 07/11/16 09:30 Lactic Acid Level 1.7 mmol/L (0.4-2.0) 2.0 mmol/L (0.4-2.0) 2.3 mmol/L (0.4-2.0) H Urine Collection Type Unknown Urine Color Yellow Urine Clarity Clear Urine pH 7.0 Urine Specific [place] 1.020 Urine Protein Trace (NEG-TRACE) Urine Glucose (UA) Neg mg/dL (NEG) Urine Ketones (Stick) Neg mg/dL (NEG) Urine Blood Neg (NEG) Urine Nitrite Neg (NEG) Urine Bilirubin Neg (NEG) Urine Urobilinogen Dipstick 0.2 mg/dL (0.2 mg/dL) Urine Leukocyte Esterase Neg (NEG) Urine RBC Rare /HPF (0-2) Urine WBC Rare /HPF (0-4) Urine Squamous Epithelial Cells Occ /LPF Urine Bacteria 0 /HPF (0-FEW) Urine Mucus Slight /LPF White Blood Count 6.9 x10^3/uL (4.0-11.0) Red Blood Count 3.53 x10^6/uL (4.30-5.70) L Hemoglobin 11.5 g/dL (13.0-17.5) L Hematocrit 34.4 % (39.0-53.0) L Mean Corpuscular Volume 98 fL (79-100) Mean Corpuscular Hemoglobin 33 pg (25-35) Mean Corpuscular Hemoglobin Concent 33 g/dL (31-37) Red Cell Distribution Width 15.4 % (11.5-14.5) H Platelet Count 236 x10^3/uL (140-400) Neutrophils (%) (Auto) 77 % (31-73) H Lymphocytes (%) (Auto) 15 % (24-48) L Monocytes (%) (Auto) 7 % (0-9) Eosinophils (%) (Auto) 0 % (0-3) Basophils (%) (Auto) 1 % (0-3) Neutrophils # (Auto) 5.3 x10^3uL (1.8-7.7) Lymphocytes # (Auto) 1.0 x10^3/uL (1.0-4.8) Monocytes # (Auto) 0.5 x10^3/uL (0.0-1.1) Eosinophils # (Auto) 0.0 x10^3/uL (0.0-0.7) Basophils # (Auto) 0.0 x10^3/uL (0.0-0.2) Sodium Level 142 mmol/L (136-145) Potassium Level 4.0 mmol/L (3.5-5.1) Chloride Level 108 mmol/L (98-107) H Carbon Dioxide Level 27 mmol/L (21-32) Anion Gap 7 (6-14) Blood Urea Nitrogen 28 mg/dL (8-26) H Creatinine 1.1 mg/dL (0.7-1.3) Estimated GFR (Cockcroft-Gault) 66.4 BUN/Creatinine Ratio 25 (6-20) H Glucose Level 112 mg/dL (70-99) H Calcium Level 8.2 mg/dL (8.5-10.1) L Magnesium Level 2.4 mg/dL (1.8-2.4) Total Bilirubin 0.4 mg/dL (0.2-1.0) Aspartate Amino Transferase (AST) 15 U/L (15-37) Alanine Aminotransferase (ALT) 29 U/L (16-63) Alkaline Phosphatase 91 U/L (46-116) JK-[id number]-Type Natriuretic Peptide 124 pg/mL (0-124) Total Protein 6.4 g/dL (6.4-8.2) Albumin 2.6 g/dL (3.4-5.0) L Albumin/Globulin Ratio 0.7 (1.0-1.7) L Test 07/11/16 16:59 Glucose (Fingerstick) 225 mg/dL (70-99) H Current Medications: Meds: Current Medications Hydroxyzine Pamoate (Vistaril) 25 mg PRN QHS PRN PO ITCHING Last administered on 07/10/16 20:49; Start 07/10/16 at 20:00 Lorazepam (Ativan) 1 mg PRN Q1HR PRN IV TREMORS; Start 07/10/16 at 20:15 Acetaminophen (Tylenol) 650 mg PRN Q6HRS PRN PO prn Last administered on 19:12; Start 07/10/16 at 20:30 Alprazolam (Xanax) 0.5 mg PRN Q6HRS PRN PO ANXIETY / AGITATION Last administered on 07/10/16 23:30; Start 07/10/16 at 20:30 Buspirone HCl (Buspar) 10 mg TID PO Last administered on 07/11/16 19:12; Start 07/11/16 at 09:00 Dexamethasone (Decadron) 4 mg DAILY PO Last administered on 07/11/16 08:46; Start 07/11/16 at 09:00 Dicyclomine HCl (Bentyl) 10 mg PRN TID PRN PO stomach spasm; Start 07/10/16 at 20:30 Docusate Sodium (Colace) 100 mg DAILY PO ; Start 07/11/16 at 09:00 Donepezil HCl (Aricept) 20 mg DAILY PO Last administered on 07/11/16 08:46; Start 07/11/16 at 09:00 Escitalopram Oxalate (Lexapro) 10 mg DAILY PO Last administered on 07/11/16 08: 46; Start 07/11/16 at 09:00 Famotidine (Pepcid) 20 mg DAILY PO Last administered on 07/11/16 08:46; Start 07/11/16 at 09:00 Multi-Ingredient Ointment (Analgesic [place]) 29 neil QIDPRN PRN TP MUSCLE PAIN; Start 07/10/16 at 20:30; Stop 07/11/16 at 08:56; Status DC Quetiapine Fumarate (SEROquel) 50 mg QHS PO Last administered on 07/11/16 19:12 ; Start 07/10/16 at 21:00 Quetiapine Fumarate (SEROquel) 25 mg BID92 PO Last administered on 07/11/16 13: 07; Start 07/11/16 at 09:00 Ergocalciferol (Vitamin D2) 50,000 unit WEEKLY PO ; Start 07/17/16 at 09:00; Stop 07/17/16 at 09:00; Status DC Hyoscyamine (Anaspaz) 0.125 mg PRN Q2HR PRN PO SECRETIONS; Start 07/10/16 at 20: 45 Pantoprazole Sodium (Protonix) 40 mg DAILYAC PO Last administered on 07/11/16 08:46; Start 07/11/16 at 07:30 Levetiracetam 1000 mg/Sodium Chloride 100 ml @ 400 mls/hr 1X ONCE IV Last administered on 07/10/16 21:29; Start 07/10/16 at 21:15; Stop 07/10/16 at 21:29; Status DC Levetiracetam (Keppra) 500 mg BID PO Last administered on 07/11/16 19:12; Start 07/11/16 at 09:00 Sodium Chloride 1,000 ml @ 1,000 mls/hr 1X ONCE IV Last administered on 21:29; Start 07/10/16 at 21:15; Stop 07/10/16 at 22:14; Status DC Levetiracetam (Keppra) 500 mg STK-MED ONCE IV ; Start 07/10/16 at 21:19; Stop 07/10/16 at 21:20; Status DC Sodium Chloride 100 ml @ As Directed STK-MED ONCE .ROUTE ; Start 07/10/16 at 21: 19; Stop 07/10/16 at 21:20; Status DC Multivitamins/ Minerals 10 ml/ Folic Acid 1 mg/ Thiamine HCl 100 mg/Dextrose/ Sodium Chloride 1,011.1 ml @ 1,000 mls/ hr 1X ONCE IV Last administered on 00:02; Start 07/10/16 at 22:00; Stop 07/10/16 at 23:00; Status DC Dextrose/Sodium Chloride 1,000 ml @ As Directed STK-MED ONCE .ROUTE ; Start 07/10/16 at 22:46; Stop 07/10/16 at 22:47; Status DC Thiamine HCl 200 mg STK-MED ONCE IV ; Start 07/10/16 at 22:46; Stop 07/10/16 at 22 :47; Status DC Multivitamins/ Minerals (Infuvite Adult) 10 ml STK-MED ONCE IV ; Start 07/10/16 at 22:46; Stop 07/10/16 at 22:47; Status DC Folic Acid 5 mg STK-MED ONCE IV ; Start 07/10/16 at 22:46; Stop 07/10/16 at 22:47 ; Status DC Multi-Ingredient Ointment (Analgesic [place]) 1 neil QIDPRN PRN TP MUSCLE PAIN; Start 07/11/16 at 08:56 Vitamin D (Vitamin D3) 50,000 unit WEEKLY PO ; Start 07/17/16 at 09:00 Active Scripts Active Reported Buspirone Hcl 10 Mg Tablet 1 Tab PO TID Seroquel (Quetiapine Fumarate) 50 Mg Tablet 1 Tab PO QHS Analgesic [place] (Methyl Salicylate/Menthol) 29 Gm Oint...g. 29 Gm TP QIDPRN PRN Famotidine 20 Mg Tablet 1 Tab PO DAILY Vitamin D3 (Cholecalciferol (Vitamin D3)) 5,000 Unit Tablet 50,000 Unit PO WEEKLY Alprazolam 0.5 Mg Tablet 0.5 Mg PO PRN Q6HRS PRN LAST DOSE GIVEN: DATE: TIME: NEXT DOSE DUE: DATE: TIME: Seroquel (Quetiapine Fumarate) 50 Mg Tablet 25 Mg PO BID92 LAST DOSE GIVEN: DATE: TIME: NEXT DOSE DUE: DATE: TIME: Levbid (Hyoscyamine Sulfate) 0.375 Mg Tab.er.12h 0.125 Mg PO Q2HR PRN Dicyclomine Hcl 10 Mg Capsule 10 Mg PO TID PRN Tylenol (Acetaminophen) 325 Mg Tablet 650 Mg PO Q6HRS PRN LAST DOSE GIVEN: DATE: TIME: NEXT DOSE DUE: DATE: TIME: Omeprazole 40 Mg Capsule.dr 40 Mg PO DAILY Escitalopram Oxalate 20 Mg Tablet 10 Mg PO DAILY Aricept (Donepezil Hcl) 10 Mg Tablet 20 Mg PO DAILY Dexamethasone 4 Mg Tablet 4 Mg PO DAILY Colace (Docusate Sodium) 100 Mg Capsule 100 Mg PO DAILY Diagnosis: Problems: (1) Anxiety disorder (2) Dementia in Alzheimer's disease with delusions (3) Dementia in Alzheimer's disease with depression (4) Dementia, vascular, with delusions (5) Dementia, vascular, with depression (6) Impulse control disorder MARJ FELICIANO MD July 11, 2016 19:36
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
--- NOTE | 2016-07-12 02:11 | PN ---
DATE: 07/11/2016 SUBJECTIVE: The patient continues to be agitated and not able to communicate; however, however, he will be very quiet and calm when he was treated. He takes his medications regularly. He has not had any recurrent seizure-like activities since he has been on anticonvulsant - Keppra. OBJECTIVE: GENERAL: Well-developed, well-nourished white male, not in acute distress. General examination revealed no evidence of acute stress, however, the patient continues to be agitated and unable to perform physical or neurological examination. VITAL SIGNS: Blood pressure 111/47, respiratory rate 16, pulse is 63 and regular, temperature afebrile and oxygen saturation 97% on room air. HEENT: Normocephalic, atraumatic, otherwise, unremarkable. NECK: Supple. Negative for carotid bruit, lymphadenopathy or thyromegaly. LABORATORY DATA: CBC revealed white blood cells of 6.9 thousand, hemoglobin 11.5, hematocrit 34.4, platelet count 237,000. Chemistry reveals sodium 142, potassium 4, chloride 108, CO2 27, BUN 28, creatinine 1.1. Glucose 112, calcium is 8.2. Lactic acid is 1.7 on admission and 2.3 today. IMPRESSION: 1. Breakthrough seizure of grand mal type, however, he has not had any seizures since transferred to ICU and being on anticonvulsant -- Keppra. 2. Multiple medical problems include dementia with behavior disturbances, metabolic acidosis, protein malnutrition and renal insufficiency versus failure, history of seizure disorder. RECOMMENDATIONS: Continue with current management initiated by Dr. Encarnacion and continue with current medications. M Mohit SUAREZ MD DR: LISANDRA/fe JOB#: [id number] / [id number]
[2016-07-12] MEDS ORDERED: HYDR25CA75 PO (07:43)
[2016-07-12] MEDS ORDERED: LEVE500T56 PO (07:43)
[2016-07-12] MEDS ORDERED: METH29OI TP (07:43)
[2016-07-12] MEDS: QUEtiapine 25 MG TABLET. PO SCH (08:22)
[2016-07-12] MEDS: ALPRAZolam 0.5 MG TABLET PO PRN (08:22)
[2016-07-12] MEDS: ESCITALOPRAM 10 MG TABLET. PO SCH (08:22)
[2016-07-12] MEDS: DEXAMETHASONE 4 MG TABLET PO SCH (08:22)
[2016-07-12] MEDS: PANTOPRAZOLE 40 MG TABLET. PO SCH (08:22)
[2016-07-12] MEDS: levETIRAcetam 500 MG TABLET PO SCH (08:22)
[2016-07-12] MEDS: busPIRone 10 MG TABLET. PO SCH (08:22)
[2016-07-12] MEDS: FAMOTIDINE 20 MG TABLET PO SCH (08:22)
[2016-07-12] MEDS: DONEPEZIL HCL 10 MG TABLET PO SCH (08:22)
[2016-07-12] MEDS ORDERED: PANT40TA3 PO (09:49)
[2016-07-12] MEDS ORDERED: QUET50TA5 PO (09:49)
[2016-07-12 13:34] LABS: BASO % 0 % (0-3); EOS % 1 % (0-3); HEMATOCRIT 36.8 % (39.0-53.0); HEMOGLOBIN 12.3 g/dL (13.0-17.5); LYMPH # 0.8 x10^3/uL (1.0-4.8); LYMPH % 9 % (24-48); MEAN CORPUSCULAR HEMOGLOBIN 33 pg (25-35); MEAN CORPUSCULAR HGB CONC 33 g/dL (31-37); MEAN CORPUSCULAR VOLUME 98 fL (79-100); MONO # 0.3 x10^3/uL (0.0-1.1); MONO % 4 % (0-9); NEUT # 7.5 x10^3uL (1.8-7.7); NEUT % 87 % (31-73); PLATELET COUNT 240 x10^3/uL (140-400); RED BLOOD COUNT 3.74 x10^6/uL (4.30-5.70); RED CELL DISTRIBUTION WIDTH 15.4 % (11.5-14.5); WHITE BLOOD COUNT 8.6 x10^3/uL (4.0-11.0)
[2016-07-12 13:45] LABS: ALBUMIN 2.9 g/dL (3.4-5.0); ALBUMIN/GLOBULIN RATIO 0.7 (1.0-1.7); CALCIUM 8.6 mg/dL (8.5-10.1); GFR 74.1; MAGNESIUM 2.1 mg/dL (1.8-2.4); POTASSIUM 4.6 mmol/L (3.5-5.1); TOTAL BILIRUBIN 0.3 mg/dL (0.2-1.0); TOTAL PROTEIN 7.1 g/dL (6.4-8.2)
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
[2016-07-17] MEDS ORDERED: ERGOCALCIFEROL (VITAMIN D2) 50,000 UNIT CAPSULE PO SCH (09:00)
[2016-07-17] MEDS ORDERED: CHOLECALCIFEROL (VITAMIN D3) 50,000 UNIT CAPSULE PO SCH (09:00)
== END 2016-07-12 08:38 | disposition short-term general hospital (02) | DRG 100 ==
LOC: ICU 19:51
PROVIDERS: ADMIT Family Medicine; ATTEND Family Medicine
DX: G40.409 Other generalized epilepsy and epileptic syndromes, not intractable, without status epilepticus (principal); E43 Unspecified severe protein-calorie malnutrition; N17.9 Acute kidney failure, unspecified; F01.51 Vascular dementia, unspecified severity, with behavioral disturbance; F02.81 Dementia in other diseases classified elsewhere, unspecified severity, with behavioral disturbance; E87.2 Acidosis; E83.42 Hypomagnesemia; F32.9 Major depressive disorder, single episode, unspecified; F41.9 Anxiety disorder, unspecified; F63.9 Impulse disorder, unspecified; G30.9 Alzheimer's disease, unspecified; Z86.73 Personal history of transient ischemic attack (TIA), and cerebral infarction without residual deficits; G89.29 Other chronic pain; K59.09 Other constipation; M54.9 Dorsalgia, unspecified; Z68.21 Body mass index [BMI] 21.0-21.9, adult
CPT/HCPCS: 36415; 80053; 81001; 82553; 82947; 83605; 83735; 83880; 84484; 85007; 85027; 87641; 93005; J1953; J8540; Q0177; J7030

== ENCOUNTER 2016-07-12 08:38 | Inpatient (IN) | payer MEDICARE ==
[~2016-07-12] VITALS: Ht 170.2 cm; Wt 60.3 kg
[~2016-07-12 08:38] MED LIST changes: +BUSP10TA PO; +CHOL500016 PO; +FAMO20TA5 PO; +HYDR25CA75 PO; +LEVE500T56 PO; +METH29OI TP
[2016-07-12] MEDS ORDERED: METHYL SALICYLATE/MENTHOL TOPICAL OINTMENT 29GM TUBE. TP PRN ×2 (09:45→11:30)
[2016-07-12] MEDS ORDERED: DICYCLOMINE HCL 10 MG CAPSULE PO PRN (09:45)
[2016-07-12] MEDS ORDERED: ACETAMINOPHEN 325 MG TABLET PO PRN ×2 (09:45→11:30)
[2016-07-12] MEDS ORDERED: QUET50TA5 PO (09:49)
[2016-07-12] MEDS ORDERED: PANT40TA3 PO (09:49)
[2016-07-12] MEDS ORDERED: HYOSCYAMINE 0.125 MG TAB.RAPDIS PO PRN (10:15)
[2016-07-12] MEDS ORDERED: MAGNESIUM HYDROXIDE 2,400 MG/30 ML ORAL.SUSP. PO PRN (11:30)
[2016-07-12] MEDS ORDERED: MAG HYDROX/AL HYDROX/SIMETH 30 ML ORAL.SUSP PO PRN (11:30)
[2016-07-12] MEDS: QUEtiapine 25 MG TABLET. PO SCH (13:44)
[2016-07-12] MEDS: busPIRone 10 MG TABLET. PO SCH ×2 (13:44→20:05)
[2016-07-12] MEDS ORDERED: QUEtiapine 50 MG TABLET. PO SCH (14:00)
[2016-07-12 16:14] VITALS: BP 116/77
[2016-07-12] MEDS: levETIRAcetam 500 MG TABLET PO SCH (20:04)
[2016-07-12] MEDS: QUEtiapine 50 MG TABLET. PO SCH ×2 (20:04→20:05)
--- NOTE | 2016-07-12 20:10 | PDOC ---
Exam Tor Demential Exam: Tor Note: Please also refer to the separate dictated note~for this date of service dictated separately.~Patient seen individually. Discussed the patient with Nursing staff reviewed the chart.~Reviewed interim history and current functioning. Reviewed vital signs,~Labs/ Radiology~and current medications noted below. Continue current treatment with the changes noted in the dictated addendum note Assessment: Vital Signs: Vital Signs Date Time Temp Pulse Resp B/P (MAP) Pulse Ox O2 Delivery O2 Flow Rate FiO2 07/12/16 16:14 98.2 64 21 116/77 (90) 99 Labs: Laboratory Tests Test 07/12/16 13:25 Lactic Acid Level 1.9 mmol/L (0.4-2.0) Current Medications: Meds: Current Medications Acetaminophen (Tylenol) 650 mg PRN Q6HRS PRN PO prn; Start 07/12/16 at 09:45 Alprazolam (Xanax) 0.5 mg PRN Q6HRS PRN PO ANXIETY / AGITATION; Start 07/12/16 at 09:45 Buspirone HCl (Buspar) 10 mg TID PO Last administered on 07/12/16 20:05; Start 07/12/16 at 14:00 Dexamethasone (Decadron) 4 mg DAILY PO ; Start 07/13/16 at 09:00 Dicyclomine HCl (Bentyl) 10 mg PRN TID PRN PO stomach spasm; Start 07/12/16 at 09:45 Docusate Sodium (Colace) 100 mg DAILY PO ; Start 07/13/16 at 09:00 Donepezil HCl (Aricept) 20 mg DAILY PO ; Start 07/13/16 at 09:00 Escitalopram Oxalate (Lexapro) 10 mg DAILY PO ; Start 07/13/16 at 09:00; Stop 07/13/16 at 09:00; Status DC Famotidine (Pepcid) 20 mg DAILY PO ; Start 07/13/16 at 09:00 Hydroxyzine Pamoate (Vistaril) 25 mg PRN QHS PRN PO ITCHING; Start 07/12/16 at 09:45 Levetiracetam (Keppra) 500 mg BID PO Last administered on 07/12/16 20:04; Start 07/12/16 at 21:00 Multi-Ingredient Ointment (Analgesic [place]) 29 neil QIDPRN PRN TP MUSCLE PAIN; Start 07/12/16 at 09:45 Pantoprazole Sodium (Protonix) 40 mg DAILY PO ; Start 07/13/16 at 09:00 Quetiapine Fumarate (SEROquel) 50 mg QHS PO Last administered on 07/12/16 20:05 ; Start 07/12/16 at 21:00 Quetiapine Fumarate (SEROquel) 25 mg BID92 PO ; Start 07/12/16 at 14:00; Stop 07/12/16 at 14:00; Status DC Vitamin D (Vitamin D3) 50,000 unit WEEKLY PO ; Start 07/19/16 at 09:00 Hyoscyamine (Anaspaz) 0.125 mg PRN Q2HR PRN PO SECRETIONS; Start 07/12/16 at 10: 15 Escitalopram Oxalate (Lexapro) 10 mg DAILY PO ; Start 07/13/16 at 09:00 Quetiapine Fumarate (SEROquel) 25 mg BID92 PO Last administered on 07/12/16 13: 44; Start 07/12/16 at 14:00 Acetaminophen (Tylenol) 650 mg PRN Q6HRS PRN PO PAIN / TEMP; Start 07/12/16 at 11:30; Status UNV Multi-Ingredient Ointment (Analgesic [place]) 1 neil PRN QID PRN TP MUSCLE PAIN; Start 07/12/16 at 11:30; Status UNV Al Hydroxide/Mg Hydroxide (Mylanta Plus Xs) 15 ml PRN AFTMEALHC PRN PO DYSPEPSIA; Start 07/12/16 at 11:30 Magnesium Hydroxide (Milk Of Magnesia) 2,400 mg PRN QHS PRN PO CONSTIPATION; Start 07/12/16 at 11:30 Active Scripts Active Reported Protonix (Pantoprazole Sodium) 40 Mg Tablet.dr 1 Tab PO DAILY Keppra (Levetiracetam) 500 Mg Tablet 1 Tab PO BID Hydroxyzine Pamoate 25 Mg Capsule 1 Cap PO PRN QHS PRN Buspirone Hcl 10 Mg Tablet 1 Tab PO TID Seroquel (Quetiapine Fumarate) 50 Mg Tablet 1 Tab PO QHS Analgesic [place] (Methyl Salicylate/Menthol) 29 Gm Oint...g. 29 Gm TP QIDPRN PRN Famotidine 20 Mg Tablet 1 Tab PO DAILY Vitamin D3 (Cholecalciferol (Vitamin D3)) 5,000 Unit Tablet 50,000 Unit PO WEEKLY Alprazolam 0.5 Mg Tablet 0.5 Mg PO PRN Q6HRS PRN LAST DOSE GIVEN: DATE: TIME: NEXT DOSE DUE: DATE: TIME: Seroquel (Quetiapine Fumarate) 50 Mg Tablet 25 Mg PO BID92 LAST DOSE GIVEN: DATE: TIME: NEXT DOSE DUE: DATE: TIME: Levbid (Hyoscyamine Sulfate) 0.375 Mg Tab.er.12h 0.125 Mg PO Q2HR PRN Dicyclomine Hcl 10 Mg Capsule 10 Mg PO TID PRN Tylenol (Acetaminophen) 325 Mg Tablet 650 Mg PO Q6HRS PRN LAST DOSE GIVEN: DATE: TIME: NEXT DOSE DUE: DATE: TIME: Escitalopram Oxalate 20 Mg Tablet 10 Mg PO DAILY Aricept (Donepezil Hcl) 10 Mg Tablet 20 Mg PO DAILY Dexamethasone 4 Mg Tablet 4 Mg PO DAILY Colace (Docusate Sodium) 100 Mg Capsule 100 Mg PO DAILY Diagnosis: Problems: (1) Anxiety disorder (2) Dementia in Alzheimer's disease with delusions (3) Dementia in Alzheimer's disease with depression (4) Dementia, vascular, with delusions (5) Dementia, vascular, with depression (6) Impulse control disorder MARJ FELICIANO MD July 12, 2016 20:10
[2016-07-12] MEDS: ALPRAZolam 0.5 MG TABLET PO PRN (22:34)
[2016-07-12] MEDS: hydrOXYzine PAMOATE 25 MG CAPSULE PO PRN (22:34)
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
[2016-07-13] MEDS: levETIRAcetam 500 MG TABLET PO SCH ×2 (08:32→19:55)
[2016-07-13] MEDS: QUEtiapine 25 MG TABLET. PO SCH ×2 (08:32→14:13)
[2016-07-13] MEDS: busPIRone 10 MG TABLET. PO SCH ×3 (08:32→19:55)
[2016-07-13] MEDS: DONEPEZIL HCL 10 MG TABLET PO SCH (08:38)
[2016-07-13] MEDS: DOCUSATE SODIUM 100 MG CAPSULE PO SCH (08:38)
[2016-07-13] MEDS: FAMOTIDINE 20 MG TABLET PO SCH (08:39)
[2016-07-13] MEDS: DEXAMETHASONE 4 MG TABLET PO SCH (08:39)
[2016-07-13] MEDS: ESCITALOPRAM 10 MG TABLET. PO SCH (08:39)
[2016-07-13] MEDS: PANTOPRAZOLE 40 MG TABLET. PO SCH (08:39)
[2016-07-13] MEDS ORDERED: ESCITALOPRAM 20 MG TABLET. PO SCH (09:00)
[2016-07-13 14:51] VITALS: BP 159/64
--- NOTE | 2016-07-13 18:41 | HP ---
ADMIT DATE: 07/12/2016 PSYCHIATRIC ADMISSION HISTORY/EVALUATION IDENTIFYING DATA: The patient is a 70-year-old male who returns back to us from the ICU after he was medically stabilized there for a seizure that he suffered while on our unit for psychiatric stabilization. He was started on Keppra in the ICU, no further seizure activity noted and behaviors, mood lability, agitation, delusions, aggression persisted, thus resulting in this referral. CHIEF COMPLAINT: "No." HISTORY OF PRESENT ILLNESS: The patient was [facility] on account of increasing agitation, psychosis within the context of his dementia. His psychotropics were being adjusted, but at this stage, he developed a seizure, was transferred to the ICU. I saw him in consult. There, he was still agitated, aggressive and once he is medically stable, he returns back to our unit for psychiatric stabilization. PAST PSYCHIATRIC HISTORY: As above. MEDICAL HISTORY: Seizure disorder, TIA, GERD, chronic constipation and vascular dementia. ALLERGIES: TETANUS. CODE STATUS: DNR. CURRENT PSYCHOTROPICS: MRAD was reviewed. FAMILY HISTORY: Noncontributory. SOCIAL HISTORY: No alcohol, drug abuse, physical, sexual or elder abuse history is noted. Not known to be a perpetrator. VITAL SIGNS: Temperature 97.8, pulse 80 and respirations 18. REVIEW OF SYSTEMS: No CV, , eye, ENT or pulmonary system symptoms on review. Gait unsteady. MENTAL STATUS EXAMINATION: Oriented to himself. Insight, judgment, recent and remote memory, attention, concentration, fund of knowledge poor, consistent with his diagnosis. IMPRESSION: Major neurocognitive disorder, Alzheimer, vascular with depression, delusion, behavioral disturbance; anxiety disorder, unspecified; impulse control disorder, unspecified. Rest diagnoses unchanged. PLAN: Continue current psychotropics, observe baseline, adjust further as clinically indicated. MARJ FELICIANO MD DR: STACEY/fe JOB#: [id number] / [id number]
[2016-07-13] MEDS: QUEtiapine 50 MG TABLET. PO SCH (19:55)
[2016-07-13] MEDS: ALPRAZolam 0.5 MG TABLET PO PRN (19:56)
--- NOTE | 2016-07-13 21:07 | PDOC ---
Exam Tor Demential Exam: Tor Note: Please also refer to the separate dictated note~for this date of service dictated separately.~Patient seen individually. Discussed the patient with Nursing staff reviewed the chart.~Reviewed interim history and current functioning. Reviewed vital signs,~Labs/ Radiology~and current medications noted below. Continue current treatment with the changes noted in the dictated addendum note Assessment: Vital Signs: Vital Signs Date Time Temp Pulse Resp B/P (MAP) Pulse Ox O2 Delivery O2 Flow Rate FiO2 07/13/16 14:51 97.9 61 20 159/64 (95) 92 I&O Intake and Output 07/13/16 07:00 Intake Total 720 ml Balance 720 ml Intake Oral 720 ml Current Medications: Meds: Current Medications Acetaminophen (Tylenol) 650 mg PRN Q6HRS PRN PO prn; Start 07/12/16 at 09:45 Alprazolam (Xanax) 0.5 mg PRN Q6HRS PRN PO ANXIETY / AGITATION Last administered on 07/13/16 19:56; Start 07/12/16 at 09:45 Buspirone HCl (Buspar) 10 mg TID PO Last administered on 07/13/16 19:55; Start 07/12/16 at 14:00 Dexamethasone (Decadron) 4 mg DAILY PO Last administered on 07/13/16 08:39; Start 07/13/16 at 09:00 Dicyclomine HCl (Bentyl) 10 mg PRN TID PRN PO stomach spasm; Start 07/12/16 at 09:45 Docusate Sodium (Colace) 100 mg DAILY PO Last administered on 07/13/16 08:38; Start 07/13/16 at 09:00 Donepezil HCl (Aricept) 20 mg DAILY PO Last administered on 07/13/16 08:38; Start 07/13/16 at 09:00 Escitalopram Oxalate (Lexapro) 10 mg DAILY PO ; Start 07/13/16 at 09:00; Stop 07/13/16 at 09:00; Status DC Famotidine (Pepcid) 20 mg DAILY PO Last administered on 07/13/16 08:39; Start 07/13/16 at 09:00 Hydroxyzine Pamoate (Vistaril) 25 mg PRN QHS PRN PO ITCHING Last administered on 07/12/16 22:34; Start 07/12/16 at 09:45 Levetiracetam (Keppra) 500 mg BID PO Last administered on 07/13/16 19:55; Start 07/12/16 at 21:00 Multi-Ingredient Ointment (Analgesic [place]) 29 neil QIDPRN PRN TP MUSCLE PAIN; Start 07/12/16 at 09:45 Pantoprazole Sodium (Protonix) 40 mg DAILY PO Last administered on 07/13/16 08: 39; Start 07/13/16 at 09:00 Quetiapine Fumarate (SEROquel) 50 mg QHS PO Last administered on 07/13/16 19:55 ; Start 07/12/16 at 21:00 Quetiapine Fumarate (SEROquel) 25 mg BID92 PO ; Start 07/12/16 at 14:00; Stop 07/12/16 at 14:00; Status DC Vitamin D (Vitamin D3) 50,000 unit WEEKLY PO ; Start 07/19/16 at 09:00 Hyoscyamine (Anaspaz) 0.125 mg PRN Q2HR PRN PO SECRETIONS; Start 07/12/16 at 10: 15 Escitalopram Oxalate (Lexapro) 10 mg DAILY PO Last administered on 07/13/16 08: 39; Start 07/13/16 at 09:00 Quetiapine Fumarate (SEROquel) 25 mg BID92 PO Last administered on 07/13/16 14: 13; Start 07/12/16 at 14:00 Acetaminophen (Tylenol) 650 mg PRN Q6HRS PRN PO PAIN / TEMP; Start 07/12/16 at 11:30; Status UNV Multi-Ingredient Ointment (Analgesic [place]) 1 neil PRN QID PRN TP MUSCLE PAIN; Start 07/12/16 at 11:30; Status UNV Al Hydroxide/Mg Hydroxide (Mylanta Plus Xs) 15 ml PRN AFTMEALHC PRN PO DYSPEPSIA; Start 07/12/16 at 11:30 Magnesium Hydroxide (Milk Of Magnesia) 2,400 mg PRN QHS PRN PO CONSTIPATION; Start 07/12/16 at 11:30 Active Scripts Active Reported Protonix (Pantoprazole Sodium) 40 Mg Tablet.dr 1 Tab PO DAILY Keppra (Levetiracetam) 500 Mg Tablet 1 Tab PO BID Hydroxyzine Pamoate 25 Mg Capsule 1 Cap PO PRN QHS PRN Buspirone Hcl 10 Mg Tablet 1 Tab PO TID Seroquel (Quetiapine Fumarate) 50 Mg Tablet 1 Tab PO QHS Analgesic [place] (Methyl Salicylate/Menthol) 29 Gm Oint...g. 29 Gm TP QIDPRN PRN Famotidine 20 Mg Tablet 1 Tab PO DAILY Vitamin D3 (Cholecalciferol (Vitamin D3)) 5,000 Unit Tablet 50,000 Unit PO WEEKLY Alprazolam 0.5 Mg Tablet 0.5 Mg PO PRN Q6HRS PRN LAST DOSE GIVEN: DATE: TIME: NEXT DOSE DUE: DATE: TIME: Seroquel (Quetiapine Fumarate) 50 Mg Tablet 25 Mg PO BID92 LAST DOSE GIVEN: DATE: TIME: NEXT DOSE DUE: DATE: TIME: Levbid (Hyoscyamine Sulfate) 0.375 Mg Tab.er.12h 0.125 Mg PO Q2HR PRN Dicyclomine Hcl 10 Mg Capsule 10 Mg PO TID PRN Tylenol (Acetaminophen) 325 Mg Tablet 650 Mg PO Q6HRS PRN LAST DOSE GIVEN: DATE: TIME: NEXT DOSE DUE: DATE: TIME: Escitalopram Oxalate 20 Mg Tablet 10 Mg PO DAILY Aricept (Donepezil Hcl) 10 Mg Tablet 20 Mg PO DAILY Dexamethasone 4 Mg Tablet 4 Mg PO DAILY Colace (Docusate Sodium) 100 Mg Capsule 100 Mg PO DAILY Diagnosis: Problems: (1) Anxiety disorder (2) Dementia in Alzheimer's disease with delusions (3) Dementia in Alzheimer's disease with depression (4) Dementia, vascular, with delusions (5) Dementia, vascular, with depression (6) Impulse control disorder MARJ FELICIANO MD July 13, 2016 21:07
[2016-07-14 07:46] VITALS: BP 177/90
[2016-07-14] MEDS: levETIRAcetam 500 MG TABLET PO SCH ×2 (09:42→19:48)
[2016-07-14] MEDS: DONEPEZIL HCL 10 MG TABLET PO SCH (09:43)
[2016-07-14] MEDS: PANTOPRAZOLE 40 MG TABLET. PO SCH (09:43)
[2016-07-14] MEDS: ESCITALOPRAM 10 MG TABLET. PO SCH (09:43)
[2016-07-14] MEDS: busPIRone 10 MG TABLET. PO SCH ×3 (09:43→19:49)
[2016-07-14] MEDS: QUEtiapine 25 MG TABLET. PO SCH ×2 (09:43→14:05)
[2016-07-14] MEDS: FAMOTIDINE 20 MG TABLET PO SCH (09:43)
[2016-07-14] MEDS: DOCUSATE SODIUM 100 MG CAPSULE PO SCH (09:43)
[2016-07-14] MEDS: DEXAMETHASONE 4 MG TABLET PO SCH (09:44)
[2016-07-14 15:48] VITALS: BP 136/67
[2016-07-14] MEDS: QUEtiapine 50 MG TABLET. PO SCH (19:49)
--- NOTE | 2016-07-14 21:56 | PDOC ---
Exam Tor Demential Exam: Tor Note: Please also refer to the separate dictated note~for this date of service dictated separately.~Patient seen individually. Discussed the patient with Nursing staff reviewed the chart.~Reviewed interim history and current functioning. Reviewed vital signs,~Labs/ Radiology~and current medications noted below. Continue current treatment with the changes noted in the dictated addendum note Assessment: Vital Signs: Vital Signs Date Time Temp Pulse Resp B/P (MAP) Pulse Ox O2 Delivery O2 Flow Rate FiO2 07/14/16 15:48 97.8 68 18 136/67 (90) 95 I&O Intake and Output 07/14/16 07:00 Intake Total 840 ml Balance 840 ml Intake Oral 840 ml # Voids 1 Current Medications: Meds: Current Medications Acetaminophen (Tylenol) 650 mg PRN Q6HRS PRN PO prn; Start 07/12/16 at 09:45 Alprazolam (Xanax) 0.5 mg PRN Q6HRS PRN PO ANXIETY / AGITATION Last administered on 07/13/16 19:56; Start 07/12/16 at 09:45 Buspirone HCl (Buspar) 10 mg TID PO Last administered on 07/14/16 19:49; Start 07/12/16 at 14:00 Dexamethasone (Decadron) 4 mg DAILY PO Last administered on 07/14/16 09:44; Start 07/13/16 at 09:00 Dicyclomine HCl (Bentyl) 10 mg PRN TID PRN PO stomach spasm; Start 07/12/16 at 09:45 Docusate Sodium (Colace) 100 mg DAILY PO Last administered on 07/14/16 09:43; Start 07/13/16 at 09:00 Donepezil HCl (Aricept) 20 mg DAILY PO Last administered on 07/14/16 09:43; Start 07/13/16 at 09:00 Escitalopram Oxalate (Lexapro) 10 mg DAILY PO ; Start 07/13/16 at 09:00; Stop 07/13/16 at 09:00; Status DC Famotidine (Pepcid) 20 mg DAILY PO Last administered on 07/14/16 09:43; Start 07/13/16 at 09:00 Hydroxyzine Pamoate (Vistaril) 25 mg PRN QHS PRN PO ITCHING Last administered on 07/12/16 22:34; Start 07/12/16 at 09:45 Levetiracetam (Keppra) 500 mg BID PO Last administered on 07/14/16 19:48; Start 07/12/16 at 21:00 Multi-Ingredient Ointment (Analgesic [place]) 29 neil QIDPRN PRN TP MUSCLE PAIN; Start 07/12/16 at 09:45 Pantoprazole Sodium (Protonix) 40 mg DAILY PO Last administered on 07/14/16 09 :43; Start 07/13/16 at 09:00 Quetiapine Fumarate (SEROquel) 50 mg QHS PO Last administered on 07/14/16 19: 49; Start 07/12/16 at 21:00 Quetiapine Fumarate (SEROquel) 25 mg BID92 PO ; Start 07/12/16 at 14:00; Stop 07/12/16 at 14:00; Status DC Vitamin D (Vitamin D3) 50,000 unit WEEKLY PO ; Start 07/19/16 at 09:00 Hyoscyamine (Anaspaz) 0.125 mg PRN Q2HR PRN PO SECRETIONS; Start 07/12/16 at 10: 15 Escitalopram Oxalate (Lexapro) 10 mg DAILY PO Last administered on 07/14/16 09 :43; Start 07/13/16 at 09:00 Quetiapine Fumarate (SEROquel) 25 mg BID92 PO Last administered on 07/14/16 14 :05; Start 07/12/16 at 14:00 Acetaminophen (Tylenol) 650 mg PRN Q6HRS PRN PO PAIN / TEMP; Start 07/12/16 at 11:30; Status UNV Multi-Ingredient Ointment (Analgesic [place]) 1 neil PRN QID PRN TP MUSCLE PAIN; Start 07/12/16 at 11:30; Status UNV Al Hydroxide/Mg Hydroxide (Mylanta Plus Xs) 15 ml PRN AFTMEALHC PRN PO DYSPEPSIA; Start 07/12/16 at 11:30 Magnesium Hydroxide (Milk Of Magnesia) 2,400 mg PRN QHS PRN PO CONSTIPATION; Start 07/12/16 at 11:30 Active Scripts Active Reported Protonix (Pantoprazole Sodium) 40 Mg Tablet.dr 1 Tab PO DAILY Keppra (Levetiracetam) 500 Mg Tablet 1 Tab PO BID Hydroxyzine Pamoate 25 Mg Capsule 1 Cap PO PRN QHS PRN Buspirone Hcl 10 Mg Tablet 1 Tab PO TID Seroquel (Quetiapine Fumarate) 50 Mg Tablet 1 Tab PO QHS Analgesic [place] (Methyl Salicylate/Menthol) 29 Gm Oint...g. 29 Gm TP QIDPRN PRN Famotidine 20 Mg Tablet 1 Tab PO DAILY Vitamin D3 (Cholecalciferol (Vitamin D3)) 5,000 Unit Tablet 50,000 Unit PO WEEKLY Alprazolam 0.5 Mg Tablet 0.5 Mg PO PRN Q6HRS PRN LAST DOSE GIVEN: DATE: TIME: NEXT DOSE DUE: DATE: TIME: Seroquel (Quetiapine Fumarate) 50 Mg Tablet 25 Mg PO BID92 LAST DOSE GIVEN: DATE: TIME: NEXT DOSE DUE: DATE: TIME: Levbid (Hyoscyamine Sulfate) 0.375 Mg Tab.er.12h 0.125 Mg PO Q2HR PRN Dicyclomine Hcl 10 Mg Capsule 10 Mg PO TID PRN Tylenol (Acetaminophen) 325 Mg Tablet 650 Mg PO Q6HRS PRN LAST DOSE GIVEN: DATE: TIME: NEXT DOSE DUE: DATE: TIME: Escitalopram Oxalate 20 Mg Tablet 10 Mg PO DAILY Aricept (Donepezil Hcl) 10 Mg Tablet 20 Mg PO DAILY Dexamethasone 4 Mg Tablet 4 Mg PO DAILY Colace (Docusate Sodium) 100 Mg Capsule 100 Mg PO DAILY MARJ FELICIANO MD July 14, 2016 21:56
[2016-07-15] MEDS: DONEPEZIL HCL 10 MG TABLET PO SCH (08:21)
[2016-07-15] MEDS: DOCUSATE SODIUM 100 MG CAPSULE PO SCH (08:22)
[2016-07-15] MEDS: busPIRone 10 MG TABLET. PO SCH ×3 (08:22→20:41)
[2016-07-15] MEDS: levETIRAcetam 500 MG TABLET PO SCH ×2 (08:22→20:41)
[2016-07-15] MEDS: FAMOTIDINE 20 MG TABLET PO SCH (08:22)
[2016-07-15] MEDS: ESCITALOPRAM 10 MG TABLET. PO SCH (08:22)
[2016-07-15] MEDS: PANTOPRAZOLE 40 MG TABLET. PO SCH (08:22)
[2016-07-15] MEDS: DEXAMETHASONE 4 MG TABLET PO SCH (08:23)
[2016-07-15] MEDS: QUEtiapine 25 MG TABLET. PO SCH ×2 (08:25→14:40)
[2016-07-15 09:13] LABS: BASO # 0.1 x10^3/uL (0.0-0.2); BASO % 1 % (0-3); EOS # 0.2 x10^3/uL (0.0-0.7); EOS % 2 % (0-3); HEMATOCRIT 36.1 % (39.0-53.0); HEMOGLOBIN 12.2 g/dL (13.0-17.5); LYMPH # 2.1 x10^3/uL (1.0-4.8); LYMPH % 26 % (24-48); MEAN CORPUSCULAR HEMOGLOBIN 33 pg (25-35); MEAN CORPUSCULAR HGB CONC 34 g/dL (31-37); MEAN CORPUSCULAR VOLUME 97 fL (79-100); MONO # 0.7 x10^3/uL (0.0-1.1); MONO % 8 % (0-9); NEUT % 63 % (31-73); PLATELET COUNT 234 x10^3/uL (140-400); RED BLOOD COUNT 3.74 x10^6/uL (4.30-5.70); RED CELL DISTRIBUTION WIDTH 14.9 % (11.5-14.5); WHITE BLOOD COUNT 7.9 x10^3/uL (4.0-11.0)
[2016-07-15 09:28] LABS: ALBUMIN 2.7 g/dL (3.4-5.0); ALBUMIN/GLOBULIN RATIO 0.7 (1.0-1.7); CALCIUM 8.7 mg/dL (8.5-10.1); CREATININE 0.9 mg/dL (0.7-1.3); GFR 83.7; POTASSIUM 3.9 mmol/L (3.5-5.1); TOTAL BILIRUBIN 0.3 mg/dL (0.2-1.0); TOTAL PROTEIN 6.8 g/dL (6.4-8.2)
--- NOTE | 2016-07-15 09:41 | PN ---
DATE: 07/13/2016 PSYCHIATRIC PROGRESS NOTE This is a late entry 07/13/2016, covers elements not covered in my initial note. The patient remains confused, wandering, sleeping in anyone's bed he comes across, oblivious of what he is doing and let the nursing staff examine him for checking on bowel sounds earlier on 07/13/2016, take his meds crushed in ice cream, took a shower previous evening, got agitated, kicking the door, but redirected. REVIEW OF SYSTEMS: No CV, , eye, ENT or pulmonary system symptoms on review. Reliability poor. MENTAL STATUS EXAM: Oriented to himself. Insight, judgment, recent and remote memory, attention, concentration, fund of knowledge poor, consistent with his diagnosis mentioned in my initial note. PLAN: Continue psychotropics mentioned in my initial note. Adjust further as clinically indicated. MAN Fuentes FELICIANO MD DR: STACEY/fe JOB#: [id number] / [id number]
[2016-07-15 09:58] LABS: % BANDS 2 % (0-9); % BASOS 2 % (0-3); % EOS 4 % (0-5); % LYMPHS 31 % (24-48); % MONOS 3 % (0-10); % SEGS 58 % (35-66); PLATELET CLUMP PRESENT; PLT ESTIMATE ADEQUATE (ADEQUATE); POLYCHROMASIA PRESENT
[2016-07-15 16:12] VITALS: BP 129/71
[2016-07-15] MEDS: QUEtiapine 50 MG TABLET. PO SCH (20:41)
--- NOTE | 2016-07-15 20:56 | PDOC ---
Exam Tor Demential Exam: Tor Note: Please also refer to the separate dictated note~for this date of service dictated separately.~Patient seen individually. Discussed the patient with Nursing staff reviewed the chart.~Reviewed interim history and current functioning. Reviewed vital signs,~Labs/ Radiology~and current medications noted below. Continue current treatment with the changes noted in the dictated addendum note Assessment: Vital Signs: Vital Signs Date Time Temp Pulse Resp B/P (MAP) Pulse Ox O2 Delivery O2 Flow Rate FiO2 07/15/16 16:12 96.9 56 17 129/71 (90) 91 I&O Intake and Output 07/15/16 07:00 Intake Total 960 ml Balance 960 ml Intake Oral 960 ml # Voids 2 Labs: Laboratory Tests Test 07/15/16 09:03 White Blood Count 7.9 x10^3/uL (4.0-11.0) Red Blood Count 3.74 x10^6/uL (4.30-5.70) L Hemoglobin 12.2 g/dL (13.0-17.5) L Hematocrit 36.1 % (39.0-53.0) L Mean Corpuscular Volume 97 fL (79-100) Mean Corpuscular Hemoglobin 33 pg (25-35) Mean Corpuscular Hemoglobin Concent 34 g/dL (31-37) Red Cell Distribution Width 14.9 % (11.5-14.5) H Platelet Count 234 x10^3/uL (140-400) Neutrophils (%) (Auto) 63 % (31-73) Lymphocytes (%) (Auto) 26 % (24-48) Monocytes (%) (Auto) 8 % (0-9) Eosinophils (%) (Auto) 2 % (0-3) Basophils (%) (Auto) 1 % (0-3) Neutrophils # (Auto) 5.0 x10^3uL (1.8-7.7) Lymphocytes # (Auto) 2.1 x10^3/uL (1.0-4.8) Monocytes # (Auto) 0.7 x10^3/uL (0.0-1.1) Eosinophils # (Auto) 0.2 x10^3/uL (0.0-0.7) Basophils # (Auto) 0.1 x10^3/uL (0.0-0.2) Segmented Neutrophils % 58 % (35-66) Band Neutrophils % 2 % (0-9) Lymphocytes % 31 % (24-48) Monocytes % 3 % (0-10) Eosinophils % 4 % (0-5) Basophils % 2 % (0-3) Platelet Estimate Adequate (ADEQUATE) Platelet Clumps, EDTA Present Polychromasia Present Sodium Level 146 mmol/L (136-145) H Potassium Level 3.9 mmol/L (3.5-5.1) Chloride Level 109 mmol/L (98-107) H Carbon Dioxide Level 29 mmol/L (21-32) Anion Gap 8 (6-14) Blood Urea Nitrogen 30 mg/dL (8-26) H Creatinine 0.9 mg/dL (0.7-1.3) Estimated GFR (Cockcroft-Gault) 83.7 BUN/Creatinine Ratio 33 (6-20) H Glucose Level 96 mg/dL (70-99) Calcium Level 8.7 mg/dL (8.5-10.1) Magnesium Level 2.0 mg/dL (1.8-2.4) Total Bilirubin 0.3 mg/dL (0.2-1.0) Aspartate Amino Transferase (AST) 22 U/L (15-37) Alanine Aminotransferase (ALT) 37 U/L (16-63) Alkaline Phosphatase 105 U/L (46-116) Total Protein 6.8 g/dL (6.4-8.2) Albumin 2.7 g/dL (3.4-5.0) L Albumin/Globulin Ratio 0.7 (1.0-1.7) L Current Medications: Meds: Current Medications Acetaminophen (Tylenol) 650 mg PRN Q6HRS PRN PO prn; Start 07/12/16 at 09:45 Alprazolam (Xanax) 0.5 mg PRN Q6HRS PRN PO ANXIETY / AGITATION Last administered on 07/13/16 19:56; Start 07/12/16 at 09:45 Buspirone HCl (Buspar) 10 mg TID PO Last administered on 07/15/16 20:41; Start 07/12/16 at 14:00 Dexamethasone (Decadron) 4 mg DAILY PO Last administered on 07/15/16 08:23; Start 07/13/16 at 09:00 Dicyclomine HCl (Bentyl) 10 mg PRN TID PRN PO stomach spasm; Start 07/12/16 at 09:45 Docusate Sodium (Colace) 100 mg DAILY PO Last administered on 07/15/16 08:22; Start 07/13/16 at 09:00 Donepezil HCl (Aricept) 20 mg DAILY PO Last administered on 07/15/16 08:21; Start 07/13/16 at 09:00 Escitalopram Oxalate (Lexapro) 10 mg DAILY PO ; Start 07/13/16 at 09:00; Stop 07/13/16 at 09:00; Status DC Famotidine (Pepcid) 20 mg DAILY PO Last administered on 07/15/16 08:22; Start 07/13/16 at 09:00 Hydroxyzine Pamoate (Vistaril) 25 mg PRN QHS PRN PO ITCHING Last administered on 07/12/16 22:34; Start 07/12/16 at 09:45 Levetiracetam (Keppra) 500 mg BID PO Last administered on 07/15/16 20:41; Start 07/12/16 at 21:00 Multi-Ingredient Ointment (Analgesic [place]) 29 neil QIDPRN PRN TP MUSCLE PAIN; Start 07/12/16 at 09:45 Pantoprazole Sodium (Protonix) 40 mg DAILY PO Last administered on 07/15/16 08 :22; Start 07/13/16 at 09:00 Quetiapine Fumarate (SEROquel) 50 mg QHS PO Last administered on 07/15/16 20: 41; Start 07/12/16 at 21:00 Quetiapine Fumarate (SEROquel) 25 mg BID92 PO ; Start 07/12/16 at 14:00; Stop 07/12/16 at 14:00; Status DC Vitamin D (Vitamin D3) 50,000 unit WEEKLY PO ; Start 07/19/16 at 09:00 Hyoscyamine (Anaspaz) 0.125 mg PRN Q2HR PRN PO SECRETIONS; Start 07/12/16 at 10: 15 Escitalopram Oxalate (Lexapro) 10 mg DAILY PO Last administered on 07/15/16 08 :22; Start 07/13/16 at 09:00 Quetiapine Fumarate (SEROquel) 25 mg BID92 PO Last administered on 07/15/16t 14 :40; Start 07/12/16 at 14:00 Acetaminophen (Tylenol) 650 mg PRN Q6HRS PRN PO PAIN / TEMP; Start 07/12/16 at 11:30; Status UNV Multi-Ingredient Ointment (Analgesic [place]) 1 neil PRN QID PRN TP MUSCLE PAIN; Start 07/12/16 at 11:30; Status UNV Al Hydroxide/Mg Hydroxide (Mylanta Plus Xs) 15 ml PRN AFTMEALHC PRN PO DYSPEPSIA; Start 07/12/16 at 11:30 Magnesium Hydroxide (Milk Of Magnesia) 2,400 mg PRN QHS PRN PO CONSTIPATION; Start 07/12/16 at 11:30 Active Scripts Active Reported Protonix (Pantoprazole Sodium) 40 Mg Tablet.dr 1 Tab PO DAILY Keppra (Levetiracetam) 500 Mg Tablet 1 Tab PO BID Hydroxyzine Pamoate 25 Mg Capsule 1 Cap PO PRN QHS PRN Buspirone Hcl 10 Mg Tablet 1 Tab PO TID Seroquel (Quetiapine Fumarate) 50 Mg Tablet 1 Tab PO QHS Analgesic [place] (Methyl Salicylate/Menthol) 29 Gm Oint...g. 29 Gm TP QIDPRN PRN Famotidine 20 Mg Tablet 1 Tab PO DAILY Vitamin D3 (Cholecalciferol (Vitamin D3)) 5,000 Unit Tablet 50,000 Unit PO WEEKLY Alprazolam 0.5 Mg Tablet 0.5 Mg PO PRN Q6HRS PRN LAST DOSE GIVEN: DATE: TIME: NEXT DOSE DUE: DATE: TIME: Seroquel (Quetiapine Fumarate) 50 Mg Tablet 25 Mg PO BID92 LAST DOSE GIVEN: DATE: TIME: NEXT DOSE DUE: DATE: TIME: Levbid (Hyoscyamine Sulfate) 0.375 Mg Tab.er.12h 0.125 Mg PO Q2HR PRN Dicyclomine Hcl 10 Mg Capsule 10 Mg PO TID PRN Tylenol (Acetaminophen) 325 Mg Tablet 650 Mg PO Q6HRS PRN LAST DOSE GIVEN: DATE: TIME: NEXT DOSE DUE: DATE: TIME: Escitalopram Oxalate 20 Mg Tablet 10 Mg PO DAILY Aricept (Donepezil Hcl) 10 Mg Tablet 20 Mg PO DAILY Dexamethasone 4 Mg Tablet 4 Mg PO DAILY Colace (Docusate Sodium) 100 Mg Capsule 100 Mg PO DAILY MARJ FELICIANO MD July 15, 2016 20:56
[2016-07-16 06:26] VITALS: BP 134/75
[2016-07-16] MEDS: DOCUSATE SODIUM 100 MG CAPSULE PO SCH (08:46)
[2016-07-16] MEDS: levETIRAcetam 500 MG TABLET PO SCH ×2 (08:46→20:02)
[2016-07-16] MEDS: FAMOTIDINE 20 MG TABLET PO SCH (08:46)
[2016-07-16] MEDS: busPIRone 10 MG TABLET. PO SCH ×3 (08:46→20:02)
[2016-07-16] MEDS: ESCITALOPRAM 10 MG TABLET. PO SCH (08:46)
[2016-07-16] MEDS: PANTOPRAZOLE 40 MG TABLET. PO SCH (08:46)
[2016-07-16] MEDS: QUEtiapine 25 MG TABLET. PO SCH ×2 (08:46→14:56)
[2016-07-16] MEDS: DEXAMETHASONE 4 MG TABLET PO SCH (08:47)
[2016-07-16] MEDS: DONEPEZIL HCL 10 MG TABLET PO SCH (08:47)
[2016-07-16 15:27] VITALS: BP 122/65
[2016-07-16] MEDS: QUEtiapine 50 MG TABLET. PO SCH (20:02)
--- NOTE | 2016-07-16 20:55 | PDOC ---
Exam Tor Demential Exam: Tor Note: Please also refer to the separate dictated note~for this date of service dictated separately.~Patient seen individually. Discussed the patient with Nursing staff reviewed the chart.~Reviewed interim history and current functioning. Reviewed vital signs,~Labs/ Radiology~and current medications noted below. Continue current treatment with the changes noted in the dictated addendum note Assessment: Vital Signs: Vital Signs Date Time Temp Pulse Resp B/P (MAP) Pulse Ox O2 Delivery O2 Flow Rate FiO2 07/16/16 15:27 97.6 63 18 122/65 (84) 96 I&O Intake and Output 07/16/16 07:00 Intake Total 600 ml Balance 600 ml Intake Oral 600 ml # Voids 2 Current Medications: Meds: Current Medications Acetaminophen (Tylenol) 650 mg PRN Q6HRS PRN PO prn; Start 07/12/16 at 09:45 Alprazolam (Xanax) 0.5 mg PRN Q6HRS PRN PO ANXIETY / AGITATION Last administered on 07/13/16 19:56; Start 07/12/16 at 09:45 Buspirone HCl (Buspar) 10 mg TID PO Last administered on 07/16/16 20:02; Start 07/12/16 at 14:00 Dexamethasone (Decadron) 4 mg DAILY PO Last administered on 07/16/16 08:47; Start 07/13/16 at 09:00 Dicyclomine HCl (Bentyl) 10 mg PRN TID PRN PO stomach spasm; Start 07/12/16 at 09:45 Docusate Sodium (Colace) 100 mg DAILY PO Last administered on 07/16/16 08:46; Start 07/13/16 at 09:00 Donepezil HCl (Aricept) 20 mg DAILY PO Last administered on 07/16/16 08:47; Start 07/13/16 at 09:00 Escitalopram Oxalate (Lexapro) 10 mg DAILY PO ; Start 07/13/16 at 09:00; Stop 07/13/16 at 09:00; Status DC Famotidine (Pepcid) 20 mg DAILY PO Last administered on 07/16/16 08:46; Start 07/13/16 at 09:00 Hydroxyzine Pamoate (Vistaril) 25 mg PRN QHS PRN PO ITCHING Last administered on 07/12/16 22:34; Start 07/12/16 at 09:45 Levetiracetam (Keppra) 500 mg BID PO Last administered on 07/16/16 20:02; Start 07/12/16 at 21:00 Multi-Ingredient Ointment (Analgesic [place]) 29 neil QIDPRN PRN TP MUSCLE PAIN; Start 07/12/16 at 09:45 Pantoprazole Sodium (Protonix) 40 mg DAILY PO Last administered on 07/16/16 08 :46; Start 07/13/16 at 09:00 Quetiapine Fumarate (SEROquel) 50 mg QHS PO Last administered on 07/16/16 20: 02; Start 07/12/16 at 21:00 Quetiapine Fumarate (SEROquel) 25 mg BID92 PO ; Start 07/12/16 at 14:00; Stop 07/12/16 at 14:00; Status DC Vitamin D (Vitamin D3) 50,000 unit WEEKLY PO ; Start 07/19/16 at 09:00 Hyoscyamine (Anaspaz) 0.125 mg PRN Q2HR PRN PO SECRETIONS; Start 07/12/16 at 10: 15 Escitalopram Oxalate (Lexapro) 10 mg DAILY PO Last administered on 07/16/16 08 :46; Start 07/13/16 at 09:00 Quetiapine Fumarate (SEROquel) 25 mg BID92 PO Last administered on 07/16/16 14 :56; Start 07/12/16 at 14:00 Acetaminophen (Tylenol) 650 mg PRN Q6HRS PRN PO PAIN / TEMP; Start 07/12/16 at 11:30; Status UNV Multi-Ingredient Ointment (Analgesic [place]) 1 neil PRN QID PRN TP MUSCLE PAIN; Start 07/12/16 at 11:30; Status UNV Al Hydroxide/Mg Hydroxide (Mylanta Plus Xs) 15 ml PRN AFTMEALHC PRN PO DYSPEPSIA; Start 07/12/16 at 11:30 Magnesium Hydroxide (Milk Of Magnesia) 2,400 mg PRN QHS PRN PO CONSTIPATION; Start 07/12/16 at 11:30 Active Scripts Active Reported Protonix (Pantoprazole Sodium) 40 Mg Tablet.dr 1 Tab PO DAILY Keppra (Levetiracetam) 500 Mg Tablet 1 Tab PO BID Hydroxyzine Pamoate 25 Mg Capsule 1 Cap PO PRN QHS PRN Buspirone Hcl 10 Mg Tablet 1 Tab PO TID Seroquel (Quetiapine Fumarate) 50 Mg Tablet 1 Tab PO QHS Analgesic [place] (Methyl Salicylate/Menthol) 29 Gm Oint...g. 29 Gm TP QIDPRN PRN Famotidine 20 Mg Tablet 1 Tab PO DAILY Vitamin D3 (Cholecalciferol (Vitamin D3)) 5,000 Unit Tablet 50,000 Unit PO WEEKLY Alprazolam 0.5 Mg Tablet 0.5 Mg PO PRN Q6HRS PRN LAST DOSE GIVEN: DATE: TIME: NEXT DOSE DUE: DATE: TIME: Seroquel (Quetiapine Fumarate) 50 Mg Tablet 25 Mg PO BID92 LAST DOSE GIVEN: DATE: TIME: NEXT DOSE DUE: DATE: TIME: Levbid (Hyoscyamine Sulfate) 0.375 Mg Tab.er.12h 0.125 Mg PO Q2HR PRN Dicyclomine Hcl 10 Mg Capsule 10 Mg PO TID PRN Tylenol (Acetaminophen) 325 Mg Tablet 650 Mg PO Q6HRS PRN LAST DOSE GIVEN: DATE: TIME: NEXT DOSE DUE: DATE: TIME: Escitalopram Oxalate 20 Mg Tablet 10 Mg PO DAILY Aricept (Donepezil Hcl) 10 Mg Tablet 20 Mg PO DAILY Dexamethasone 4 Mg Tablet 4 Mg PO DAILY Colace (Docusate Sodium) 100 Mg Capsule 100 Mg PO DAILY MARJ FELICIANO MD July 16, 2016 20:55
[2016-07-17 06:17] VITALS: BP 170/87
--- NOTE | 2016-07-17 07:06 | PN ---
DATE: 07/14/2016 PSYCHIATRIC PROGRESS NOTE This is late entry of 07/14/2016, covers elements not covered in my initial note. SUBJECTIVE: The patient remains confused, wanders the hallways, cooperative with changing his clothes, not combative, no grabbing behavior is noted, compliant. No PRNs given on 07/14/2016. REVIEW OF SYSTEMS: No CV, , pulmonary, eye, ENT system symptoms on review. MENTAL STATUS EXAMINATION: Oriented to himself. Insight, judgment, recent and remote memory, attention, concentration, fund of knowledge poor, consistent with his diagnosis mentioned in my initial note. PLAN: Continue current psychotropics. Adjust further as clinically indicated. MAN Fuentes FELICIANO MD DR: STACEY/fe JOB#: [id number] / [id number]
--- NOTE | 2016-07-17 07:13 | PN ---
DATE: 07/15/2016 PSYCHIATRIC PROGRESS NOTE This is late entry of 07/15/2016, covers elements not covered in my initial note. SUBJECTIVE: The patient was staffed at treatment team meeting with the entire team and the patient's , Soila attended the conference. Reviewed his history, progress. Appetite 100%, sleeping 4-5 hours. REVIEW OF SYSTEMS: No CV, , eye, ENT or pulmonary system symptoms on review. Reliability poor. MENTAL STATUS EXAMINATION: Oriented to himself. Insight, judgment, recent and remote memory, attention, concentration, fund of knowledge poor, consistent with his diagnosis mentioned in my initial note. PLAN: Continue current psychotropics including Keppra for his seizures, BuSpar was increased to 10 t.i.d., maintain the rest unchanged. MAN Fuentes FELICIANO MD DR: STACEY/fe JOB#: [id number] / [id number]
[2016-07-17] MEDS: DONEPEZIL HCL 10 MG TABLET PO SCH (08:36)
[2016-07-17] MEDS: ESCITALOPRAM 10 MG TABLET. PO SCH (08:36)
[2016-07-17] MEDS: busPIRone 10 MG TABLET. PO SCH ×3 (08:36→19:36)
[2016-07-17] MEDS: DOCUSATE SODIUM 100 MG CAPSULE PO SCH (08:36)
[2016-07-17] MEDS: levETIRAcetam 500 MG TABLET PO SCH ×2 (08:36→19:36)
[2016-07-17] MEDS: DEXAMETHASONE 4 MG TABLET PO SCH (08:36)
[2016-07-17] MEDS: PANTOPRAZOLE 40 MG TABLET. PO SCH (08:36)
[2016-07-17] MEDS: FAMOTIDINE 20 MG TABLET PO SCH (08:36)
[2016-07-17] MEDS: QUEtiapine 25 MG TABLET. PO SCH ×2 (08:36→13:33)
[2016-07-17] MEDS: ALPRAZolam 0.5 MG TABLET PO PRN (19:31)
[2016-07-17] MEDS: QUEtiapine 50 MG TABLET. PO SCH (19:36)
--- NOTE | 2016-07-17 20:43 | PDOC ---
Exam Tor Demential Exam: Tor Note: Please also refer to the separate dictated note~for this date of service dictated separately.~Patient seen individually. Discussed the patient with Nursing staff reviewed the chart.~Reviewed interim history and current functioning. Reviewed vital signs,~Labs/ Radiology~and current medications noted below. Continue current treatment with the changes noted in the dictated addendum note Assessment: Vital Signs: Vital Signs Date Time Temp Pulse Resp B/P (MAP) Pulse Ox O2 Delivery O2 Flow Rate FiO2 07/17/16 06:17 97.0 58 22 170/87 (114) 96 Room Air I&O Intake and Output 07/17/16 07:00 Intake Total 1080 ml Balance 1080 ml Intake Oral 1080 ml # Bowel Movements 2 Current Medications: Meds: Current Medications Acetaminophen (Tylenol) 650 mg PRN Q6HRS PRN PO prn; Start 07/12/16 at 09:45 Alprazolam (Xanax) 0.5 mg PRN Q6HRS PRN PO ANXIETY / AGITATION Last administered on 07/17/16 19:31; Start 07/12/16 at 09:45 Buspirone HCl (Buspar) 10 mg TID PO Last administered on 07/17/16 19:36; Start 07/12/16 at 14:00 Dexamethasone (Decadron) 4 mg DAILY PO Last administered on 07/17/16 08:36; Start 07/13/16 at 09:00 Dicyclomine HCl (Bentyl) 10 mg PRN TID PRN PO stomach spasm; Start 07/12/16 at 09:45 Docusate Sodium (Colace) 100 mg DAILY PO Last administered on 07/17/16 08:36; Start 07/13/16 at 09:00 Donepezil HCl (Aricept) 20 mg DAILY PO Last administered on 07/17/16 08:36; Start 07/13/16 at 09:00 Escitalopram Oxalate (Lexapro) 10 mg DAILY PO ; Start 07/13/16 at 09:00; Stop 07/13/16 at 09:00; Status DC Famotidine (Pepcid) 20 mg DAILY PO Last administered on 07/17/16 08:36; Start 07/13/16 at 09:00 Hydroxyzine Pamoate (Vistaril) 25 mg PRN QHS PRN PO ITCHING Last administered on 07/12/16 22:34; Start 07/12/16 at 09:45 Levetiracetam (Keppra) 500 mg BID PO Last administered on 07/17/16 19:36; Start 07/12/16 at 21:00 Multi-Ingredient Ointment (Analgesic [place]) 29 neil QIDPRN PRN TP MUSCLE PAIN; Start 07/12/16 at 09:45 Pantoprazole Sodium (Protonix) 40 mg DAILY PO Last administered on 07/17/16 08 :36; Start 07/13/16 at 09:00 Quetiapine Fumarate (SEROquel) 50 mg QHS PO Last administered on 07/17/16 19: 36; Start 07/12/16 at 21:00 Quetiapine Fumarate (SEROquel) 25 mg BID92 PO ; Start 07/12/16 at 14:00; Stop 07/12/16 at 14:00; Status DC Vitamin D (Vitamin D3) 50,000 unit WEEKLY PO ; Start 07/19/16 at 09:00 Hyoscyamine (Anaspaz) 0.125 mg PRN Q2HR PRN PO SECRETIONS; Start 07/12/16 at 10: 15 Escitalopram Oxalate (Lexapro) 10 mg DAILY PO Last administered on 07/17/16 08 :36; Start 07/13/16 at 09:00 Quetiapine Fumarate (SEROquel) 25 mg BID92 PO Last administered on 07/17/16 13 :33; Start 07/12/16 at 14:00 Acetaminophen (Tylenol) 650 mg PRN Q6HRS PRN PO PAIN / TEMP; Start 07/12/16 at 11:30; Status UNV Multi-Ingredient Ointment (Analgesic [place]) 1 neil PRN QID PRN TP MUSCLE PAIN; Start 07/12/16 at 11:30; Status UNV Al Hydroxide/Mg Hydroxide (Mylanta Plus Xs) 15 ml PRN AFTMEALHC PRN PO DYSPEPSIA; Start 07/12/16 at 11:30 Magnesium Hydroxide (Milk Of Magnesia) 2,400 mg PRN QHS PRN PO CONSTIPATION; Start 07/12/16 at 11:30 Active Scripts Active Reported Protonix (Pantoprazole Sodium) 40 Mg Tablet.dr 1 Tab PO DAILY Keppra (Levetiracetam) 500 Mg Tablet 1 Tab PO BID Hydroxyzine Pamoate 25 Mg Capsule 1 Cap PO PRN QHS PRN Buspirone Hcl 10 Mg Tablet 1 Tab PO TID Seroquel (Quetiapine Fumarate) 50 Mg Tablet 1 Tab PO QHS Analgesic [place] (Methyl Salicylate/Menthol) 29 Gm Oint...g. 29 Gm TP QIDPRN PRN Famotidine 20 Mg Tablet 1 Tab PO DAILY Vitamin D3 (Cholecalciferol (Vitamin D3)) 5,000 Unit Tablet 50,000 Unit PO WEEKLY Alprazolam 0.5 Mg Tablet 0.5 Mg PO PRN Q6HRS PRN LAST DOSE GIVEN: DATE: TIME: NEXT DOSE DUE: DATE: TIME: Seroquel (Quetiapine Fumarate) 50 Mg Tablet 25 Mg PO BID92 LAST DOSE GIVEN: DATE: TIME: NEXT DOSE DUE: DATE: TIME: Levbid (Hyoscyamine Sulfate) 0.375 Mg Tab.er.12h 0.125 Mg PO Q2HR PRN Dicyclomine Hcl 10 Mg Capsule 10 Mg PO TID PRN Tylenol (Acetaminophen) 325 Mg Tablet 650 Mg PO Q6HRS PRN LAST DOSE GIVEN: DATE: TIME: NEXT DOSE DUE: DATE: TIME: Escitalopram Oxalate 20 Mg Tablet 10 Mg PO DAILY Aricept (Donepezil Hcl) 10 Mg Tablet 20 Mg PO DAILY Dexamethasone 4 Mg Tablet 4 Mg PO DAILY Colace (Docusate Sodium) 100 Mg Capsule 100 Mg PO DAILY Diagnosis: Problems: (1) Anxiety disorder (2) Dementia in Alzheimer's disease with delusions (3) Dementia in Alzheimer's disease with depression (4) Dementia, vascular, with delusions (5) Dementia, vascular, with depression (6) Impulse control disorder MARJ FELICIANO MD July 17, 2016 20:43
[2016-07-18] MEDS: DONEPEZIL HCL 10 MG TABLET PO SCH (08:10)
[2016-07-18] MEDS: PANTOPRAZOLE 40 MG TABLET. PO SCH (08:10)
[2016-07-18] MEDS: QUEtiapine 25 MG TABLET. PO SCH ×2 (08:10→14:12)
[2016-07-18] MEDS: FAMOTIDINE 20 MG TABLET PO SCH (08:10)
[2016-07-18] MEDS: ESCITALOPRAM 10 MG TABLET. PO SCH (08:10)
[2016-07-18] MEDS: DOCUSATE SODIUM 100 MG CAPSULE PO SCH (08:10)
[2016-07-18] MEDS: DEXAMETHASONE 4 MG TABLET PO SCH (08:10)
[2016-07-18] MEDS: levETIRAcetam 500 MG TABLET PO SCH ×2 (08:10→21:34)
[2016-07-18] MEDS: busPIRone 10 MG TABLET. PO SCH ×3 (08:10→21:34)
[2016-07-18] MEDS ORDERED: MAG30ORA2 PO (15:15)
[2016-07-18] MEDS ORDERED: MAGN2400 PO (15:16)
[2016-07-18 16:14] VITALS: BP 152/60
--- NOTE | 2016-07-18 20:03 | PDOC ---
Exam Tor Demential Exam: Tor Note: Please also refer to the separate dictated note~for this date of service dictated separately.~Patient seen individually. Discussed the patient with Nursing staff reviewed the chart.~Reviewed interim history and current functioning. Reviewed vital signs,~Labs/ Radiology~and current medications noted below. Continue current treatment with the changes noted in the dictated addendum note Assessment: Vital Signs: Vital Signs Date Time Temp Pulse Resp B/P (MAP) Pulse Ox O2 Delivery O2 Flow Rate FiO2 07/18/16 16:14 97.4 66 18 152/60 (90) 97 07/17/16 06:17 Room Air I&O Intake and Output 07/18/16 07:00 Intake Total 1200 ml Balance 1200 ml Intake Oral 1200 ml # Voids 1 Current Medications: Meds: Current Medications Acetaminophen (Tylenol) 650 mg PRN Q6HRS PRN PO prn; Start 07/12/16 at 09:45 Alprazolam (Xanax) 0.5 mg PRN Q6HRS PRN PO ANXIETY / AGITATION Last administered on 07/17/16 19:31; Start 07/12/16 at 09:45 Buspirone HCl (Buspar) 10 mg TID PO Last administered on 07/18/16 14:12; Start 07/12/16 at 14:00 Dexamethasone (Decadron) 4 mg DAILY PO Last administered on 07/18/16 08:10; Start 07/13/16 at 09:00 Dicyclomine HCl (Bentyl) 10 mg PRN TID PRN PO stomach spasm; Start 07/12/16 at 09:45 Docusate Sodium (Colace) 100 mg DAILY PO Last administered on 07/18/16 08:10; Start 07/13/16 at 09:00 Donepezil HCl (Aricept) 20 mg DAILY PO Last administered on 07/18/16 08:10; Start 07/13/16 at 09:00 Escitalopram Oxalate (Lexapro) 10 mg DAILY PO ; Start 07/13/16 at 09:00; Stop 07/13/16 at 09:00; Status DC Famotidine (Pepcid) 20 mg DAILY PO Last administered on 07/18/16 08:10; Start 07/13/16 at 09:00 Hydroxyzine Pamoate (Vistaril) 25 mg PRN QHS PRN PO ITCHING Last administered on 07/12/16 22:34; Start 07/12/16 at 09:45 Levetiracetam (Keppra) 500 mg BID PO Last administered on 07/18/16 08:10; Start 07/12/16 at 21:00 Multi-Ingredient Ointment (Analgesic [place]) 29 neil QIDPRN PRN TP MUSCLE PAIN; Start 07/12/16 at 09:45 Pantoprazole Sodium (Protonix) 40 mg DAILY PO Last administered on 07/18/16 08 :10; Start 07/13/16 at 09:00 Quetiapine Fumarate (SEROquel) 50 mg QHS PO Last administered on 07/17/16 19: 36; Start 07/12/16 at 21:00 Quetiapine Fumarate (SEROquel) 25 mg BID92 PO ; Start 07/12/16 at 14:00; Stop 07/12/16 at 14:00; Status DC Vitamin D (Vitamin D3) 50,000 unit WEEKLY PO ; Start 07/19/16 at 09:00 Hyoscyamine (Anaspaz) 0.125 mg PRN Q2HR PRN PO SECRETIONS; Start 07/12/16 at 10: 15 Escitalopram Oxalate (Lexapro) 10 mg DAILY PO Last administered on 07/18/16 08 :10; Start 07/13/16 at 09:00 Quetiapine Fumarate (SEROquel) 25 mg BID92 PO Last administered on 07/18/16 14 :12; Start 07/12/16 at 14:00 Acetaminophen (Tylenol) 650 mg PRN Q6HRS PRN PO PAIN / TEMP; Start 07/12/16 at 11:30; Status UNV Multi-Ingredient Ointment (Analgesic [place]) 1 neil PRN QID PRN TP MUSCLE PAIN; Start 07/12/16 at 11:30; Status UNV Al Hydroxide/Mg Hydroxide (Mylanta Plus Xs) 15 ml PRN AFTMEALHC PRN PO DYSPEPSIA; Start 07/12/16 at 11:30 Magnesium Hydroxide (Milk Of Magnesia) 2,400 mg PRN QHS PRN PO CONSTIPATION; Start 07/12/16 at 11:30 Olanzapine (Zyprexa Zydis) 2.5 mg PRN QID PRN PO PSYCHOSIS; Start 07/18/16 at 18:15 Active Scripts Active Reported Protonix (Pantoprazole Sodium) 40 Mg Tablet.dr 1 Tab PO DAILY Keppra (Levetiracetam) 500 Mg Tablet 1 Tab PO BID Hydroxyzine Pamoate 25 Mg Capsule 1 Cap PO PRN QHS PRN Buspirone Hcl 10 Mg Tablet 1 Tab PO TID Seroquel (Quetiapine Fumarate) 50 Mg Tablet 1 Tab PO QHS Analgesic [place] (Methyl Salicylate/Menthol) 29 Gm Oint...g. 29 Gm TP QIDPRN PRN Famotidine 20 Mg Tablet 1 Tab PO DAILY Vitamin D3 (Cholecalciferol (Vitamin D3)) 5,000 Unit Tablet 50,000 Unit PO WEEKLY Alprazolam 0.5 Mg Tablet 0.5 Mg PO PRN Q6HRS PRN LAST DOSE GIVEN: DATE: TIME: NEXT DOSE DUE: DATE: TIME: Seroquel (Quetiapine Fumarate) 50 Mg Tablet 25 Mg PO BID92 LAST DOSE GIVEN: DATE: TIME: NEXT DOSE DUE: DATE: TIME: Levbid (Hyoscyamine Sulfate) 0.375 Mg Tab.er.12h 0.125 Mg PO Q2HR PRN Dicyclomine Hcl 10 Mg Capsule 10 Mg PO TID PRN Tylenol (Acetaminophen) 325 Mg Tablet 650 Mg PO Q6HRS PRN LAST DOSE GIVEN: DATE: TIME: NEXT DOSE DUE: DATE: TIME: Escitalopram Oxalate 20 Mg Tablet 10 Mg PO DAILY Aricept (Donepezil Hcl) 10 Mg Tablet 20 Mg PO DAILY Dexamethasone 4 Mg Tablet 4 Mg PO DAILY Colace (Docusate Sodium) 100 Mg Capsule 100 Mg PO DAILY MARJ FELICIANO MD July 18, 2016 20:03
[2016-07-18] MEDS: QUEtiapine 50 MG TABLET. PO SCH (21:33)
[2016-07-18] MEDS: ALPRAZolam 0.5 MG TABLET PO PRN (21:35)
[2016-07-19 06:29] VITALS: BP 147/74
--- NOTE | 2016-07-19 09:04 | PN ---
DATE: 07/16/2016 This late entry of 07/16/2016 covers elements not covered in my initial note. SUBJECTIVE: Per nursing report, the patient has been wandering, confused, sleeping in everyone else's bed, urinated on the floor last night. During the day on 07/16/2016, he defecated in another patient's bed. He takes his medications crushed. REVIEW OF SYSTEMS: No CV, , pulmonary, eye, ENT system symptoms on review. Reliability poor. MENTAL STATUS EXAM: Oriented to himself. Insight, judgment, recent and remote memory, attention, concentration, fund of knowledge poor, consistent with his diagnosis mentioned in my initial note. LABORATORY DATA: Reviewed. PLAN: Continue current psychotropics. Make further adjustments as clinically indicated, but for now, continue Aricept 20 mg a day, BuSpar 10 mg t.i.d., Keppra 500 mg b.i.d., Lexapro 10 mg a day, Seroquel 25 mg twice a day, 50 mg at night. Xanax and Vistaril p.r.n. MAN Fuentes FELICIANO MD DR: STACEY/fe JOB#: [id number] / [id number]
[2016-07-19] MEDS: DONEPEZIL HCL 10 MG TABLET PO SCH (09:33)
[2016-07-19] MEDS: DOCUSATE SODIUM 100 MG CAPSULE PO SCH (09:33)
[2016-07-19] MEDS: busPIRone 10 MG TABLET. PO SCH ×3 (09:33→19:31)
[2016-07-19] MEDS: levETIRAcetam 500 MG TABLET PO SCH ×2 (09:34→19:31)
[2016-07-19] MEDS: ESCITALOPRAM 10 MG TABLET. PO SCH (09:34)
[2016-07-19] MEDS: QUEtiapine 25 MG TABLET. PO SCH ×2 (09:34→13:37)
[2016-07-19] MEDS: FAMOTIDINE 20 MG TABLET PO SCH (09:34)
[2016-07-19] MEDS: PANTOPRAZOLE 40 MG TABLET. PO SCH (09:34)
[2016-07-19] MEDS: DEXAMETHASONE 4 MG TABLET PO SCH (09:35)
[2016-07-19] MEDS: CHOLECALCIFEROL (VITAMIN D3) 50,000 UNIT CAPSULE PO SCH (09:35)
[2016-07-19 12:47] LABS: BACTERIA,URINE 0 /HPF (0-FEW); BILIRUBIN,URINE NEG (NEG); CLARITY,URINE CLEAR; COLOR,URINE YELLOW; GLUCOSE,URINE NEG (NEG); NITRITE,URINE NEG (NEG); RBC,URINE 0 /HPF (0-2); SQUAMOUS EPITHELIAL CELL,UR FEW /LPF; UROBILINOGEN,URINE 0.2 mg/dL (0.2 mg/dL); WBC,URINE 0 /HPF (0-4)
[2016-07-19 16:07] VITALS: BP 130/60
[2016-07-19] MEDS: QUEtiapine 50 MG TABLET. PO SCH (19:31)
[2016-07-19] MEDS: ALPRAZolam 0.5 MG TABLET PO PRN (20:17)
--- NOTE | 2016-07-19 20:59 | PDOC ---
Exam Tor Demential Exam: Tor Note: Please also refer to the separate dictated note~for this date of service dictated separately.~Patient seen individually. Discussed the patient with Nursing staff reviewed the chart.~Reviewed interim history and current functioning. Reviewed vital signs,~Labs/ Radiology~and current medications noted below. Continue current treatment with the changes noted in the dictated addendum note Assessment: Vital Signs: Vital Signs Date Time Temp Pulse Resp B/P (MAP) Pulse Ox O2 Delivery O2 Flow Rate FiO2 07/19/16 16:07 97.5 72 20 130/60 (83) 100 Room Air I&O Intake and Output 07/19/16 07:00 Intake Total 1080 ml Balance 1080 ml Intake Oral 1080 ml Labs: Laboratory Tests Test 07/19/16 12:30 Urine Collection Type Void Urine Color Yellow Urine Clarity Clear Urine pH 7.0 Urine Specific [place] 1.020 Urine Protein Neg (NEG-TRACE) Urine Glucose (UA) Neg mg/dL (NEG) Urine Ketones (Stick) Neg mg/dL (NEG) Urine Blood Neg (NEG) Urine Nitrite Neg (NEG) Urine Bilirubin Neg (NEG) Urine Urobilinogen Dipstick 0.2 mg/dL (0.2 mg/dL) Urine Leukocyte Esterase Neg (NEG) Urine RBC 0 /HPF (0-2) Urine WBC 0 /HPF (0-4) Urine Squamous Epithelial Cells Few /LPF Urine Bacteria 0 /HPF (0-FEW) Current Medications: Meds: Current Medications Acetaminophen (Tylenol) 650 mg PRN Q6HRS PRN PO prn Last administered on 13:37; Start 07/12/16 at 09:45 Alprazolam (Xanax) 0.5 mg PRN Q6HRS PRN PO ANXIETY / AGITATION Last administered on 07/19/16 20:17; Start 07/12/16 at 09:45 Buspirone HCl (Buspar) 10 mg TID PO Last administered on 07/19/16 19:31; Start 07/12/16 at 14:00 Dexamethasone (Decadron) 4 mg DAILY PO Last administered on 07/19/16 09:35; Start 07/13/16 at 09:00 Dicyclomine HCl (Bentyl) 10 mg PRN TID PRN PO stomach spasm; Start 07/12/16 at 09:45 Docusate Sodium (Colace) 100 mg DAILY PO Last administered on 07/19/16 09:33; Start 07/13/16 at 09:00 Donepezil HCl (Aricept) 20 mg DAILY PO Last administered on 07/19/16 09:33; Start 07/13/16 at 09:00 Escitalopram Oxalate (Lexapro) 10 mg DAILY PO ; Start 07/13/16 at 09:00; Stop 07/13/16 at 09:00; Status DC Famotidine (Pepcid) 20 mg DAILY PO Last administered on 07/19/16 09:34; Start 07/13/16 at 09:00 Hydroxyzine Pamoate (Vistaril) 25 mg PRN QHS PRN PO ITCHING Last administered on 07/12/16 22:34; Start 07/12/16 at 09:45 Levetiracetam (Keppra) 500 mg BID PO Last administered on 07/19/16 19:31; Start 07/12/16 at 21:00 Multi-Ingredient Ointment (Analgesic [place]) 29 neil QIDPRN PRN TP MUSCLE PAIN; Start 07/12/16 at 09:45 Pantoprazole Sodium (Protonix) 40 mg DAILY PO Last administered on 07/19/16 09 :34; Start 07/13/16 at 09:00 Quetiapine Fumarate (SEROquel) 50 mg QHS PO Last administered on 07/19/16 19: 31; Start 07/12/16 at 21:00 Quetiapine Fumarate (SEROquel) 25 mg BID92 PO ; Start 07/12/16 at 14:00; Stop 07/12/16 at 14:00; Status DC Vitamin D (Vitamin D3) 50,000 unit WEEKLY PO Last administered on 07/19/16 09: 35; Start 07/19/16 at 09:00 Hyoscyamine (Anaspaz) 0.125 mg PRN Q2HR PRN PO SECRETIONS; Start 07/12/16 at 10: 15 Escitalopram Oxalate (Lexapro) 10 mg DAILY PO Last administered on 07/19/16 09 :34; Start 07/13/16 at 09:00 Quetiapine Fumarate (SEROquel) 25 mg BID92 PO Last administered on 07/19/16 13 :37; Start 07/12/16 at 14:00 Acetaminophen (Tylenol) 650 mg PRN Q6HRS PRN PO PAIN / TEMP; Start 07/12/16 at 11:30; Status UNV Multi-Ingredient Ointment (Analgesic [place]) 1 neil PRN QID PRN TP MUSCLE PAIN; Start 07/12/16 at 11:30; Status UNV Al Hydroxide/Mg Hydroxide (Mylanta Plus Xs) 15 ml PRN AFTMEALHC PRN PO DYSPEPSIA; Start 07/12/16 at 11:30 Magnesium Hydroxide (Milk Of Magnesia) 2,400 mg PRN QHS PRN PO CONSTIPATION; Start 07/12/16 at 11:30 Olanzapine (Zyprexa Zydis) 2.5 mg PRN QID PRN PO PSYCHOSIS Last administered on 07/18/16 21:35; Start 07/18/16 at 18:15 Active Scripts Active Reported Protonix (Pantoprazole Sodium) 40 Mg Tablet.dr 1 Tab PO DAILY Keppra (Levetiracetam) 500 Mg Tablet 1 Tab PO BID Hydroxyzine Pamoate 25 Mg Capsule 1 Cap PO PRN QHS PRN Buspirone Hcl 10 Mg Tablet 1 Tab PO TID Seroquel (Quetiapine Fumarate) 50 Mg Tablet 1 Tab PO QHS Analgesic [place] (Methyl Salicylate/Menthol) 29 Gm Oint...g. 29 Gm TP QIDPRN PRN Famotidine 20 Mg Tablet 1 Tab PO DAILY Vitamin D3 (Cholecalciferol (Vitamin D3)) 5,000 Unit Tablet 50,000 Unit PO WEEKLY Alprazolam 0.5 Mg Tablet 0.5 Mg PO PRN Q6HRS PRN LAST DOSE GIVEN: DATE: TIME: NEXT DOSE DUE: DATE: TIME: Seroquel (Quetiapine Fumarate) 50 Mg Tablet 25 Mg PO BID92 LAST DOSE GIVEN: DATE: TIME: NEXT DOSE DUE: DATE: TIME: Levbid (Hyoscyamine Sulfate) 0.375 Mg Tab.er.12h 0.125 Mg PO Q2HR PRN Dicyclomine Hcl 10 Mg Capsule 10 Mg PO TID PRN Tylenol (Acetaminophen) 325 Mg Tablet 650 Mg PO Q6HRS PRN LAST DOSE GIVEN: DATE: TIME: NEXT DOSE DUE: DATE: TIME: Escitalopram Oxalate 20 Mg Tablet 10 Mg PO DAILY Aricept (Donepezil Hcl) 10 Mg Tablet 20 Mg PO DAILY Dexamethasone 4 Mg Tablet 4 Mg PO DAILY Colace (Docusate Sodium) 100 Mg Capsule 100 Mg PO DAILY MARJ FELICIANO MD July 19, 2016 20:59
--- NOTE | 2016-07-20 00:22 | PN ---
DATE: 07/17/2016 PSYCHIATRIC PROGRESS NOTE This is late entry of 07/17/2016, covers elements not covered in my initial note. SUBJECTIVE: The patient remains confused, ambulates on the unit, lies down in the beds of others, oblivious of what he is doing, compliant with his medications hidden in pudding, agitated, combative with showers and dressing, wandering. REVIEW OF SYSTEMS: No CV, , eye, ENT or pulmonary system symptoms on review. Reliability poor. MENTAL STATUS EXAMINATION: Oriented to himself. Insight, judgment, recent and remote memory, attention, concentration, fund of knowledge poor, consistent with his diagnosis mentioned in my initial note. PLAN: Continue current psychotropics mentioned in my initial note, may consider using Zyprexa p.r.n. prior to cares. We will reassess in the next day or so. MAN Fuentes FELICIANO MD DR: STACEY/fe JOB#: [id number] / [id number]
--- NOTE | 2016-07-20 00:30 | PN ---
DATE: 07/18/2016 PSYCHIATRIC PROGRESS NOTE This is late entry of 07/18/2016, covers elements not covered in my initial note. SUBJECTIVE: The patient has been urinating on the floor, yelling and aggressive with cares. REVIEW OF SYSTEMS: No CV, , eye, ENT system symptoms on review. Reliability poor. MENTAL STATUS EXAMINATION: Oriented to himself. Insight, judgment, recent and remote memory, attention, concentration, fund of knowledge poor, consistent with his diagnosis mentioned in my initial note. PLAN: Continue current psychotropics, add Zyprexa p.r.n. prior to cares, adjust further as clinically indicated. MAN Fuentes FELICIANO MD DR: STACEY/fe JOB#: [id number] / [id number]
[2016-07-20 08:45] VITALS: BP 164/70
[2016-07-20] MEDS: QUEtiapine 25 MG TABLET. PO SCH ×2 (08:46→13:19)
[2016-07-20] MEDS: levETIRAcetam 500 MG TABLET PO SCH ×2 (08:47→19:53)
[2016-07-20] MEDS: DONEPEZIL HCL 10 MG TABLET PO SCH (08:47)
[2016-07-20] MEDS: DOCUSATE SODIUM 100 MG CAPSULE PO SCH (08:47)
[2016-07-20] MEDS: ESCITALOPRAM 10 MG TABLET. PO SCH (08:47)
[2016-07-20] MEDS: FAMOTIDINE 20 MG TABLET PO SCH (08:47)
[2016-07-20] MEDS: PANTOPRAZOLE 40 MG TABLET. PO SCH (08:47)
[2016-07-20] MEDS: busPIRone 10 MG TABLET. PO SCH ×3 (08:47→19:53)
[2016-07-20] MEDS: DEXAMETHASONE 4 MG TABLET PO SCH (08:47)
[2016-07-20 15:53] VITALS: BP 106/53
[2016-07-20] MEDS: QUEtiapine 50 MG TABLET. PO SCH (19:53)
--- NOTE | 2016-07-20 21:02 | PDOC ---
Exam Tor Demential Exam: Tor Note: Please also refer to the separate dictated note~for this date of service dictated separately.~Patient seen individually. Discussed the patient with Nursing staff reviewed the chart.~Reviewed interim history and current functioning. Reviewed vital signs,~Labs/ Radiology~and current medications noted below. Continue current treatment with the changes noted in the dictated addendum note Assessment: Vital Signs: Vital Signs Date Time Temp Pulse Resp B/P (MAP) Pulse Ox O2 Delivery O2 Flow Rate FiO2 07/20/16 15:53 63 18 106/53 (70) 07/19/16 16:07 97.5 100 Room Air I&O Intake and Output 07/20/16 07:00 Intake Total 720 ml Balance 720 ml Intake Oral 720 ml Current Medications: Meds: Current Medications Acetaminophen (Tylenol) 650 mg PRN Q6HRS PRN PO prn Last administered on 13:37; Start 07/12/16 at 09:45 Alprazolam (Xanax) 0.5 mg PRN Q6HRS PRN PO ANXIETY / AGITATION Last administered on 07/19/16 20:17; Start 07/12/16 at 09:45 Buspirone HCl (Buspar) 10 mg TID PO Last administered on 07/20/16 19:53; Start 07/12/16 at 14:00 Dexamethasone (Decadron) 4 mg DAILY PO Last administered on 07/20/16 08:47; Start 07/13/16 at 09:00 Dicyclomine HCl (Bentyl) 10 mg PRN TID PRN PO stomach spasm; Start 07/12/16 at 09:45 Docusate Sodium (Colace) 100 mg DAILY PO Last administered on 07/20/16 08:47; Start 07/13/16 at 09:00 Donepezil HCl (Aricept) 20 mg DAILY PO Last administered on 07/20/16 08:47; Start 07/13/16 at 09:00 Escitalopram Oxalate (Lexapro) 10 mg DAILY PO ; Start 07/13/16 at 09:00; Stop 07/13/16 at 09:00; Status DC Famotidine (Pepcid) 20 mg DAILY PO Last administered on 07/20/16 08:47; Start 07/13/16 at 09:00 Hydroxyzine Pamoate (Vistaril) 25 mg PRN QHS PRN PO ITCHING Last administered on 07/12/16 22:34; Start 07/12/16 at 09:45 Levetiracetam (Keppra) 500 mg BID PO Last administered on 07/20/16 19:53; Start 07/12/16 at 21:00 Multi-Ingredient Ointment (Analgesic [place]) 29 neil QIDPRN PRN TP MUSCLE PAIN; Start 07/12/16 at 09:45 Pantoprazole Sodium (Protonix) 40 mg DAILY PO Last administered on 07/20/16 08 :47; Start 07/13/16 at 09:00 Quetiapine Fumarate (SEROquel) 50 mg QHS PO Last administered on 07/20/16 19: 53; Start 07/12/16 at 21:00 Quetiapine Fumarate (SEROquel) 25 mg BID92 PO ; Start 07/12/16 at 14:00; Stop 07/12/16 at 14:00; Status DC Vitamin D (Vitamin D3) 50,000 unit WEEKLY PO Last administered on 07/19/16 09: 35; Start 07/19/16 at 09:00 Hyoscyamine (Anaspaz) 0.125 mg PRN Q2HR PRN PO SECRETIONS; Start 07/12/16 at 10: 15 Escitalopram Oxalate (Lexapro) 10 mg DAILY PO Last administered on 07/20/16 08 :47; Start 07/13/16 at 09:00 Quetiapine Fumarate (SEROquel) 25 mg BID92 PO Last administered on 07/20/16 13 :19; Start 07/12/16 at 14:00; Stop 07/20/16 at 18:08; Status DC Acetaminophen (Tylenol) 650 mg PRN Q6HRS PRN PO PAIN / TEMP; Start 07/12/16 at 11:30; Status UNV Multi-Ingredient Ointment (Analgesic [place]) 1 neil PRN QID PRN TP MUSCLE PAIN; Start 07/12/16 at 11:30; Status UNV Al Hydroxide/Mg Hydroxide (Mylanta Plus Xs) 15 ml PRN AFTMEALHC PRN PO DYSPEPSIA; Start 07/12/16 at 11:30 Magnesium Hydroxide (Milk Of Magnesia) 2,400 mg PRN QHS PRN PO CONSTIPATION; Start 07/12/16 at 11:30 Olanzapine (Zyprexa Zydis) 2.5 mg PRN QID PRN PO PSYCHOSIS Last administered on 07/20/16t 17:35; Start 07/18/16 at 18:15 Quetiapine Fumarate (SEROquel) 25 mg TIDWMEALS PO ; Start 07/21/16 at 08:00 Active Scripts Active Reported Protonix (Pantoprazole Sodium) 40 Mg Tablet.dr 1 Tab PO DAILY Keppra (Levetiracetam) 500 Mg Tablet 1 Tab PO BID Hydroxyzine Pamoate 25 Mg Capsule 1 Cap PO PRN QHS PRN Buspirone Hcl 10 Mg Tablet 1 Tab PO TID Seroquel (Quetiapine Fumarate) 50 Mg Tablet 1 Tab PO QHS Analgesic [place] (Methyl Salicylate/Menthol) 29 Gm Oint...g. 29 Gm TP QIDPRN PRN Famotidine 20 Mg Tablet 1 Tab PO DAILY Vitamin D3 (Cholecalciferol (Vitamin D3)) 5,000 Unit Tablet 50,000 Unit PO WEEKLY Alprazolam 0.5 Mg Tablet 0.5 Mg PO PRN Q6HRS PRN LAST DOSE GIVEN: DATE: TIME: NEXT DOSE DUE: DATE: TIME: Seroquel (Quetiapine Fumarate) 50 Mg Tablet 25 Mg PO BID92 LAST DOSE GIVEN: DATE: TIME: NEXT DOSE DUE: DATE: TIME: Levbid (Hyoscyamine Sulfate) 0.375 Mg Tab.er.12h 0.125 Mg PO Q2HR PRN Dicyclomine Hcl 10 Mg Capsule 10 Mg PO TID PRN Tylenol (Acetaminophen) 325 Mg Tablet 650 Mg PO Q6HRS PRN LAST DOSE GIVEN: DATE: TIME: NEXT DOSE DUE: DATE: TIME: Escitalopram Oxalate 20 Mg Tablet 10 Mg PO DAILY Aricept (Donepezil Hcl) 10 Mg Tablet 20 Mg PO DAILY Dexamethasone 4 Mg Tablet 4 Mg PO DAILY Colace (Docusate Sodium) 100 Mg Capsule 100 Mg PO DAILY MARJ FELICIANO MD July 20, 2016 21:02
--- NOTE | 2016-07-21 00:35 | PN ---
DATE: 07/19/2016 PSYCHIATRIC PROGRESS NOTE This is late entry of 07/19/2016, covers elements not covered in my initial note. SUBJECTIVE: UA is negative on 07/19/2016. He had a good day. No PRNs before cares, still wanders aimlessly, gets into other patients' beds, but redirects, not aggressive with cares. REVIEW OF SYSTEMS: No CV, , pulmonary, eye, ENT system symptoms on review. Reliability poor. MENTAL STATUS EXAMINATION: Oriented to himself. Insight, judgment, recent and remote memory, attention, concentration, fund of knowledge poor, consistent with his diagnosis mentioned in my initial note. PLAN: Continue current psychotropics, adjust further as clinically indicated. MAN Fuentes FELICIANO MD DR: TSACEY/fe JOB#: [id number] / [id number]
[2016-07-21 06:03] VITALS: BP 109/60
[2016-07-21] MEDS: PANTOPRAZOLE 40 MG TABLET. PO SCH (09:03)
[2016-07-21] MEDS: DOCUSATE SODIUM 100 MG CAPSULE PO SCH (09:03)
[2016-07-21] MEDS: FAMOTIDINE 20 MG TABLET PO SCH (09:04)
[2016-07-21] MEDS: busPIRone 10 MG TABLET. PO SCH ×3 (09:04→19:33)
[2016-07-21] MEDS: DONEPEZIL HCL 10 MG TABLET PO SCH (09:04)
[2016-07-21] MEDS: levETIRAcetam 500 MG TABLET PO SCH ×2 (09:04→19:33)
[2016-07-21] MEDS: ESCITALOPRAM 10 MG TABLET. PO SCH (09:04)
[2016-07-21] MEDS: DEXAMETHASONE 4 MG TABLET PO SCH (09:05)
[2016-07-21] MEDS: QUEtiapine 25 MG TABLET. PO SCH ×3 (09:05→17:44)
[2016-07-21 16:07] VITALS: BP 109/77
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
[2016-07-21] MEDS: QUEtiapine 50 MG TABLET. PO SCH (19:34)
--- NOTE | 2016-07-21 20:33 | PDOC ---
Exam Tor Demential Exam: Tor Note: Please also refer to the separate dictated note~for this date of service dictated separately.~Patient seen individually. Discussed the patient with Nursing staff reviewed the chart.~Reviewed interim history and current functioning. Reviewed vital signs,~Labs/ Radiology~and current medications noted below. Continue current treatment with the changes noted in the dictated addendum note Assessment: Vital Signs: Vital Signs Date Time Temp Pulse Resp B/P (MAP) Pulse Ox O2 Delivery O2 Flow Rate FiO2 07/21/16 16:07 97.8 54 18 109/77 (88) 95 07/19/16 16:07 Room Air I&O Intake and Output 07/21/16 07:00 Intake Total 960 ml Balance 960 ml Intake Oral 960 ml Current Medications: Meds: Current Medications Acetaminophen (Tylenol) 650 mg PRN Q6HRS PRN PO prn Last administered on 13:37; Start 07/12/16 at 09:45 Alprazolam (Xanax) 0.5 mg PRN Q6HRS PRN PO ANXIETY / AGITATION Last administered on 07/19/16 20:17; Start 07/12/16 at 09:45 Buspirone HCl (Buspar) 10 mg TID PO Last administered on 07/21/16 19:33; Start 07/12/16 at 14:00 Dexamethasone (Decadron) 4 mg DAILY PO Last administered on 07/21/16 09:05; Start 07/13/16 at 09:00 Dicyclomine HCl (Bentyl) 10 mg PRN TID PRN PO stomach spasm; Start 07/12/16 at 09:45 Docusate Sodium (Colace) 100 mg DAILY PO Last administered on 07/21/16 09:03; Start 07/13/16 at 09:00 Donepezil HCl (Aricept) 20 mg DAILY PO Last administered on 07/21/16 09:04; Start 07/13/16 at 09:00 Escitalopram Oxalate (Lexapro) 10 mg DAILY PO ; Start 07/13/16 at 09:00; Stop 07/13/16 at 09:00; Status DC Famotidine (Pepcid) 20 mg DAILY PO Last administered on 07/21/16 09:04; Start 07/13/16 at 09:00 Hydroxyzine Pamoate (Vistaril) 25 mg PRN QHS PRN PO ITCHING Last administered on 07/12/16 22:34; Start 07/12/16 at 09:45 Levetiracetam (Keppra) 500 mg BID PO Last administered on 07/21/16 19:33; Start 07/12/16 at 21:00 Multi-Ingredient Ointment (Analgesic [place]) 29 neil QIDPRN PRN TP MUSCLE PAIN; Start 07/12/16 at 09:45 Pantoprazole Sodium (Protonix) 40 mg DAILY PO Last administered on 07/21/16 09 :03; Start 07/13/16 at 09:00 Quetiapine Fumarate (SEROquel) 50 mg QHS PO Last administered on 07/21/16 19: 34; Start 07/12/16 at 21:00 Quetiapine Fumarate (SEROquel) 25 mg BID92 PO ; Start 07/12/16 at 14:00; Stop 07/12/16 at 14:00; Status DC Vitamin D (Vitamin D3) 50,000 unit WEEKLY PO Last administered on 07/19/16 09: 35; Start 07/19/16 at 09:00 Hyoscyamine (Anaspaz) 0.125 mg PRN Q2HR PRN PO SECRETIONS; Start 07/12/16 at 10: 15 Escitalopram Oxalate (Lexapro) 10 mg DAILY PO Last administered on 07/21/16 09 :04; Start 07/13/16 at 09:00 Quetiapine Fumarate (SEROquel) 25 mg BID92 PO Last administered on 07/20/16 13 :19; Start 07/12/16 at 14:00; Stop 07/20/16 at 18:08; Status DC Acetaminophen (Tylenol) 650 mg PRN Q6HRS PRN PO PAIN / TEMP; Start 07/12/16 at 11:30; Status UNV Multi-Ingredient Ointment (Analgesic [place]) 1 neil PRN QID PRN TP MUSCLE PAIN; Start 07/12/16 at 11:30; Status UNV Al Hydroxide/Mg Hydroxide (Mylanta Plus Xs) 15 ml PRN AFTMEALHC PRN PO DYSPEPSIA; Start 07/12/16 at 11:30 Magnesium Hydroxide (Milk Of Magnesia) 2,400 mg PRN QHS PRN PO CONSTIPATION; Start 07/12/16 at 11:30 Olanzapine (Zyprexa Zydis) 2.5 mg PRN QID PRN PO PSYCHOSIS Last administered on 07/20/16 17:35; Start 07/18/16 at 18:15 Quetiapine Fumarate (SEROquel) 25 mg TIDWMEALS PO Last administered on 17:44; Start 07/21/16 at 08:00 Active Scripts Active Reported Protonix (Pantoprazole Sodium) 40 Mg Tablet.dr 1 Tab PO DAILY Keppra (Levetiracetam) 500 Mg Tablet 1 Tab PO BID Hydroxyzine Pamoate 25 Mg Capsule 1 Cap PO PRN QHS PRN Buspirone Hcl 10 Mg Tablet 1 Tab PO TID Seroquel (Quetiapine Fumarate) 50 Mg Tablet 1 Tab PO QHS Analgesic [place] (Methyl Salicylate/Menthol) 29 Gm Oint...g. 29 Gm TP QIDPRN PRN Famotidine 20 Mg Tablet 1 Tab PO DAILY Vitamin D3 (Cholecalciferol (Vitamin D3)) 5,000 Unit Tablet 50,000 Unit PO WEEKLY Alprazolam 0.5 Mg Tablet 0.5 Mg PO PRN Q6HRS PRN LAST DOSE GIVEN: DATE: TIME: NEXT DOSE DUE: DATE: TIME: Seroquel (Quetiapine Fumarate) 50 Mg Tablet 25 Mg PO BID92 LAST DOSE GIVEN: DATE: TIME: NEXT DOSE DUE: DATE: TIME: Levbid (Hyoscyamine Sulfate) 0.375 Mg Tab.er.12h 0.125 Mg PO Q2HR PRN Dicyclomine Hcl 10 Mg Capsule 10 Mg PO TID PRN Tylenol (Acetaminophen) 325 Mg Tablet 650 Mg PO Q6HRS PRN LAST DOSE GIVEN: DATE: TIME: NEXT DOSE DUE: DATE: TIME: Escitalopram Oxalate 20 Mg Tablet 10 Mg PO DAILY Aricept (Donepezil Hcl) 10 Mg Tablet 20 Mg PO DAILY Dexamethasone 4 Mg Tablet 4 Mg PO DAILY Colace (Docusate Sodium) 100 Mg Capsule 100 Mg PO DAILY MARJ FELICIANO MD July 21, 2016 20:33
[2016-07-22 08:07] VITALS: BP 161/72
[2016-07-22] MEDS: FAMOTIDINE 20 MG TABLET PO SCH (08:37)
[2016-07-22] MEDS: PANTOPRAZOLE 40 MG TABLET. PO SCH (08:37)
[2016-07-22] MEDS: QUEtiapine 25 MG TABLET. PO SCH ×3 (08:37→17:57)
[2016-07-22] MEDS: DOCUSATE SODIUM 100 MG CAPSULE PO SCH (08:37)
[2016-07-22] MEDS: levETIRAcetam 500 MG TABLET PO SCH ×2 (08:37→21:10)
[2016-07-22] MEDS: DONEPEZIL HCL 10 MG TABLET PO SCH (08:37)
[2016-07-22] MEDS: ESCITALOPRAM 10 MG TABLET. PO SCH (08:37)
[2016-07-22] MEDS: busPIRone 10 MG TABLET. PO SCH ×3 (08:37→21:09)
[2016-07-22] MEDS: DEXAMETHASONE 4 MG TABLET PO SCH (08:38)
[2016-07-22 15:45] VITALS: BP 113/72
--- NOTE | 2016-07-22 20:59 | PDOC ---
Exam Tor Demential Exam: Tor Note: Please also refer to the separate dictated note~for this date of service dictated separately.~Patient seen individually. Discussed the patient with Nursing staff reviewed the chart.~Reviewed interim history and current functioning. Reviewed vital signs,~Labs/ Radiology~and current medications noted below. Continue current treatment with the changes noted in the dictated addendum note Assessment: Vital Signs: Vital Signs Date Time Temp Pulse Resp B/P (MAP) Pulse Ox O2 Delivery O2 Flow Rate FiO2 07/22/16 15:45 98.4 97 24 113/72 (86) 95 07/19/16 16:07 Room Air I&O Intake and Output 07/22/16 07:00 Intake Total 1080 ml Balance 1080 ml Intake Oral 1080 ml Current Medications: Meds: Current Medications Acetaminophen (Tylenol) 650 mg PRN Q6HRS PRN PO prn Last administered on 13:37; Start 07/12/16 at 09:45 Alprazolam (Xanax) 0.5 mg PRN Q6HRS PRN PO ANXIETY / AGITATION Last administered on 07/19/16 20:17; Start 07/12/16 at 09:45 Buspirone HCl (Buspar) 10 mg TID PO Last administered on 07/22/16 13:28; Start 07/12/16 at 14:00 Dexamethasone (Decadron) 4 mg DAILY PO Last administered on 07/22/16 08:38; Start 07/13/16 at 09:00 Dicyclomine HCl (Bentyl) 10 mg PRN TID PRN PO stomach spasm; Start 07/12/16 at 09:45 Docusate Sodium (Colace) 100 mg DAILY PO Last administered on 07/22/16 08:37; Start 07/13/16 at 09:00 Donepezil HCl (Aricept) 20 mg DAILY PO Last administered on 07/22/16 08:37; Start 07/13/16 at 09:00 Escitalopram Oxalate (Lexapro) 10 mg DAILY PO ; Start 07/13/16 at 09:00; Stop 07/13/16 at 09:00; Status DC Famotidine (Pepcid) 20 mg DAILY PO Last administered on 07/22/16 08:37; Start 07/13/16 at 09:00 Hydroxyzine Pamoate (Vistaril) 25 mg PRN QHS PRN PO ITCHING Last administered on 07/12/16 22:34; Start 07/12/16 at 09:45 Levetiracetam (Keppra) 500 mg BID PO Last administered on 07/22/16 08:37; Start 07/12/16 at 21:00 Multi-Ingredient Ointment (Analgesic [place]) 29 neil QIDPRN PRN TP MUSCLE PAIN; Start 07/12/16 at 09:45 Pantoprazole Sodium (Protonix) 40 mg DAILY PO Last administered on 07/22/16 08 :37; Start 07/13/16 at 09:00 Quetiapine Fumarate (SEROquel) 50 mg QHS PO Last administered on 07/21/16 19: 34; Start 07/12/16 at 21:00 Quetiapine Fumarate (SEROquel) 25 mg BID92 PO ; Start 07/12/16 at 14:00; Stop 07/12/16 at 14:00; Status DC Vitamin D (Vitamin D3) 50,000 unit WEEKLY PO Last administered on 07/19/16 09: 35; Start 07/19/16 at 09:00 Hyoscyamine (Anaspaz) 0.125 mg PRN Q2HR PRN PO SECRETIONS; Start 07/12/16 at 10: 15 Escitalopram Oxalate (Lexapro) 10 mg DAILY PO Last administered on 07/22/16 08 :37; Start 07/13/16 at 09:00 Quetiapine Fumarate (SEROquel) 25 mg BID92 PO Last administered on 07/20/16 13 :19; Start 07/12/16 at 14:00; Stop 07/20/16 at 18:08; Status DC Acetaminophen (Tylenol) 650 mg PRN Q6HRS PRN PO PAIN / TEMP; Start 07/12/16 at 11:30; Status UNV Multi-Ingredient Ointment (Analgesic [place]) 1 neil PRN QID PRN TP MUSCLE PAIN; Start 07/12/16 at 11:30; Status UNV Al Hydroxide/Mg Hydroxide (Mylanta Plus Xs) 15 ml PRN AFTMEALHC PRN PO DYSPEPSIA; Start 07/12/16 at 11:30 Magnesium Hydroxide (Milk Of Magnesia) 2,400 mg PRN QHS PRN PO CONSTIPATION; Start 07/12/16 at 11:30 Olanzapine (Zyprexa Zydis) 2.5 mg PRN QID PRN PO PSYCHOSIS Last administered on 07/20/16 17:35; Start 07/18/16 at 18:15 Quetiapine Fumarate (SEROquel) 25 mg TIDWMEALS PO Last administered on 08:37; Start 07/21/16 at 08:00; Stop 07/22/16 at 10:36; Status DC Quetiapine Fumarate (SEROquel) 37.5 mg TIDWMEALS PO Last administered on 17:57; Start 07/22/16 at 12:00 Active Scripts Active Reported Protonix (Pantoprazole Sodium) 40 Mg Tablet.dr 1 Tab PO DAILY Keppra (Levetiracetam) 500 Mg Tablet 1 Tab PO BID Hydroxyzine Pamoate 25 Mg Capsule 1 Cap PO PRN QHS PRN Buspirone Hcl 10 Mg Tablet 1 Tab PO TID Seroquel (Quetiapine Fumarate) 50 Mg Tablet 1 Tab PO QHS Analgesic [place] (Methyl Salicylate/Menthol) 29 Gm Oint...g. 29 Gm TP QIDPRN PRN Famotidine 20 Mg Tablet 1 Tab PO DAILY Vitamin D3 (Cholecalciferol (Vitamin D3)) 5,000 Unit Tablet 50,000 Unit PO WEEKLY Alprazolam 0.5 Mg Tablet 0.5 Mg PO PRN Q6HRS PRN LAST DOSE GIVEN: DATE: TIME: NEXT DOSE DUE: DATE: TIME: Seroquel (Quetiapine Fumarate) 50 Mg Tablet 25 Mg PO BID92 LAST DOSE GIVEN: DATE: TIME: NEXT DOSE DUE: DATE: TIME: Levbid (Hyoscyamine Sulfate) 0.375 Mg Tab.er.12h 0.125 Mg PO Q2HR PRN Dicyclomine Hcl 10 Mg Capsule 10 Mg PO TID PRN Tylenol (Acetaminophen) 325 Mg Tablet 650 Mg PO Q6HRS PRN LAST DOSE GIVEN: DATE: TIME: NEXT DOSE DUE: DATE: TIME: Escitalopram Oxalate 20 Mg Tablet 10 Mg PO DAILY Aricept (Donepezil Hcl) 10 Mg Tablet 20 Mg PO DAILY Dexamethasone 4 Mg Tablet 4 Mg PO DAILY Colace (Docusate Sodium) 100 Mg Capsule 100 Mg PO DAILY MARJ FELICIANO MD July 22, 2016 20:59
[2016-07-22] MEDS: QUEtiapine 50 MG TABLET. PO SCH (21:09)
[2016-07-23] MEDS: QUEtiapine 25 MG TABLET. PO SCH ×3 (07:54→17:05)
[2016-07-23] MEDS: DONEPEZIL HCL 10 MG TABLET PO SCH (07:57)
[2016-07-23] MEDS: busPIRone 10 MG TABLET. PO SCH ×3 (07:58→21:25)
[2016-07-23] MEDS: levETIRAcetam 500 MG TABLET PO SCH ×2 (07:58→21:25)
[2016-07-23] MEDS: DOCUSATE SODIUM 100 MG CAPSULE PO SCH (07:58)
[2016-07-23] MEDS: PANTOPRAZOLE 40 MG TABLET. PO SCH (07:59)
[2016-07-23] MEDS: ESCITALOPRAM 10 MG TABLET. PO SCH (07:59)
[2016-07-23] MEDS: FAMOTIDINE 20 MG TABLET PO SCH (07:59)
[2016-07-23] MEDS: DEXAMETHASONE 4 MG TABLET PO SCH (08:01)
[2016-07-23 10:40] LABS: BASO # 0.1 x10^3/uL (0.0-0.2); BASO % 1 % (0-3); EOS # 0.2 x10^3/uL (0.0-0.7); EOS % 3 % (0-3); HEMATOCRIT 38.8 % (39.0-53.0); HEMOGLOBIN 13.2 g/dL (13.0-17.5); LYMPH # 1.4 x10^3/uL (1.0-4.8); LYMPH % 15 % (24-48); MEAN CORPUSCULAR HEMOGLOBIN 33 pg (25-35); MEAN CORPUSCULAR HGB CONC 34 g/dL (31-37); MEAN CORPUSCULAR VOLUME 96 fL (79-100); MONO # 0.6 x10^3/uL (0.0-1.1); MONO % 6 % (0-9); NEUT % 75 % (31-73); PLATELET COUNT 201 x10^3/uL (140-400); RED BLOOD COUNT 4.04 x10^6/uL (4.30-5.70); RED CELL DISTRIBUTION WIDTH 15.5 % (11.5-14.5); WHITE BLOOD COUNT 9.3 x10^3/uL (4.0-11.0)
[2016-07-23 11:00] LABS: ALBUMIN 3.1 g/dL (3.4-5.0); ALBUMIN/GLOBULIN RATIO 0.7 (1.0-1.7); CALCIUM 9.1 mg/dL (8.5-10.1); CREATININE 0.9 mg/dL (0.7-1.3); GFR 83.7; POTASSIUM 3.7 mmol/L (3.5-5.1); TOTAL BILIRUBIN 0.4 mg/dL (0.2-1.0); TOTAL PROTEIN 7.3 g/dL (6.4-8.2)
[2016-07-23 16:16] VITALS: BP 128/77
--- NOTE | 2016-07-23 21:03 | PDOC ---
Exam Tor Demential Exam: Tor Note: Please also refer to the separate dictated note~for this date of service dictated separately.~Patient seen individually. Discussed the patient with Nursing staff reviewed the chart.~Reviewed interim history and current functioning. Reviewed vital signs,~Labs/ Radiology~and current medications noted below. Continue current treatment with the changes noted in the dictated addendum note Assessment: Vital Signs: Vital Signs Date Time Temp Pulse Resp B/P (MAP) Pulse Ox O2 Delivery O2 Flow Rate FiO2 07/23/16 16:16 80 18 128/77 (94) 97 07/23/16 06:39 97.4 07/19/16 16:07 Room Air I&O Intake and Output 07/23/16 07:00 Intake Total 1200 ml Balance 1200 ml Intake Oral 1200 ml Labs: Laboratory Tests Test 07/23/16 10:10 White Blood Count 9.3 x10^3/uL (4.0-11.0) Red Blood Count 4.04 x10^6/uL (4.30-5.70) L Hemoglobin 13.2 g/dL (13.0-17.5) Hematocrit 38.8 % (39.0-53.0) L Mean Corpuscular Volume 96 fL (79-100) Mean Corpuscular Hemoglobin 33 pg (25-35) Mean Corpuscular Hemoglobin Concent 34 g/dL (31-37) Red Cell Distribution Width 15.5 % (11.5-14.5) H Platelet Count 201 x10^3/uL (140-400) Neutrophils (%) (Auto) 75 % (31-73) H Lymphocytes (%) (Auto) 15 % (24-48) L Monocytes (%) (Auto) 6 % (0-9) Eosinophils (%) (Auto) 3 % (0-3) Basophils (%) (Auto) 1 % (0-3) Neutrophils # (Auto) 7.0 x10^3uL (1.8-7.7) Lymphocytes # (Auto) 1.4 x10^3/uL (1.0-4.8) Monocytes # (Auto) 0.6 x10^3/uL (0.0-1.1) Eosinophils # (Auto) 0.2 x10^3/uL (0.0-0.7) Basophils # (Auto) 0.1 x10^3/uL (0.0-0.2) Sodium Level 146 mmol/L (136-145) H Potassium Level 3.7 mmol/L (3.5-5.1) Chloride Level 107 mmol/L (98-107) Carbon Dioxide Level 31 mmol/L (21-32) Anion Gap 8 (6-14) Blood Urea Nitrogen 32 mg/dL (8-26) H Creatinine 0.9 mg/dL (0.7-1.3) Estimated GFR (Cockcroft-Gault) 83.7 BUN/Creatinine Ratio 36 (6-20) H Glucose Level 88 mg/dL (70-99) Calcium Level 9.1 mg/dL (8.5-10.1) Magnesium Level 2.3 mg/dL (1.8-2.4) Total Bilirubin 0.4 mg/dL (0.2-1.0) Aspartate Amino Transferase (AST) 20 U/L (15-37) Alanine Aminotransferase (ALT) 42 U/L (16-63) Alkaline Phosphatase 94 U/L (46-116) Total Protein 7.3 g/dL (6.4-8.2) Albumin 3.1 g/dL (3.4-5.0) L Albumin/Globulin Ratio 0.7 (1.0-1.7) L Current Medications: Meds: Current Medications Acetaminophen (Tylenol) 650 mg PRN Q6HRS PRN PO prn Last administered on 13:37; Start 07/12/16 at 09:45 Alprazolam (Xanax) 0.5 mg PRN Q6HRS PRN PO ANXIETY / AGITATION Last administered on 07/19/16 20:17; Start 07/12/16 at 09:45 Buspirone HCl (Buspar) 10 mg TID PO Last administered on 07/23/16 13:52; Start 07/12/16 at 14:00 Dexamethasone (Decadron) 4 mg DAILY PO Last administered on 07/23/16 08:01; Start 07/13/16 at 09:00 Dicyclomine HCl (Bentyl) 10 mg PRN TID PRN PO stomach spasm; Start 07/12/16 at 09:45 Docusate Sodium (Colace) 100 mg DAILY PO Last administered on 07/23/16 07:58; Start 07/13/16 at 09:00 Donepezil HCl (Aricept) 20 mg DAILY PO Last administered on 07/23/16 07:57; Start 07/13/16 at 09:00 Escitalopram Oxalate (Lexapro) 10 mg DAILY PO ; Start 07/13/16 at 09:00; Stop 07/13/16 at 09:00; Status DC Famotidine (Pepcid) 20 mg DAILY PO Last administered on 07/23/16 07:59; Start 07/13/16 at 09:00 Hydroxyzine Pamoate (Vistaril) 25 mg PRN QHS PRN PO ITCHING Last administered on 07/12/16 22:34; Start 07/12/16 at 09:45 Levetiracetam (Keppra) 500 mg BID PO Last administered on 07/23/16 07:58; Start 07/12/16 at 21:00 Multi-Ingredient Ointment (Analgesic [place]) 29 neil QIDPRN PRN TP MUSCLE PAIN; Start 07/12/16 at 09:45 Pantoprazole Sodium (Protonix) 40 mg DAILY PO Last administered on 07/23/16 07 :59; Start 07/13/16 at 09:00 Quetiapine Fumarate (SEROquel) 50 mg QHS PO Last administered on 07/22/16 21: 09; Start 07/12/16 at 21:00 Quetiapine Fumarate (SEROquel) 25 mg BID92 PO ; Start 07/12/16 at 14:00; Stop 07/12/16 at 14:00; Status DC Vitamin D (Vitamin D3) 50,000 unit WEEKLY PO Last administered on 07/19/16 09: 35; Start 07/19/16 at 09:00 Hyoscyamine (Anaspaz) 0.125 mg PRN Q2HR PRN PO SECRETIONS; Start 07/12/16 at 10: 15 Escitalopram Oxalate (Lexapro) 10 mg DAILY PO Last administered on 07/23/16 07 :59; Start 07/13/16 at 09:00 Quetiapine Fumarate (SEROquel) 25 mg BID92 PO Last administered on 07/20/16 13 :19; Start 07/12/16 at 14:00; Stop 07/20/16 at 18:08; Status DC Acetaminophen (Tylenol) 650 mg PRN Q6HRS PRN PO PAIN / TEMP; Start 07/12/16 at 11:30; Status UNV Multi-Ingredient Ointment (Analgesic [place]) 1 neil PRN QID PRN TP MUSCLE PAIN; Start 07/12/16 at 11:30; Status UNV Al Hydroxide/Mg Hydroxide (Mylanta Plus Xs) 15 ml PRN AFTMEALHC PRN PO DYSPEPSIA; Start 07/12/16 at 11:30 Magnesium Hydroxide (Milk Of Magnesia) 2,400 mg PRN QHS PRN PO CONSTIPATION; Start 07/12/16 at 11:30 Olanzapine (Zyprexa Zydis) 2.5 mg PRN QID PRN PO PSYCHOSIS Last administered on 07/20/16 17:35; Start 07/18/16 at 18:15 Quetiapine Fumarate (SEROquel) 25 mg TIDWMEALS PO Last administered on 08:37; Start 07/21/16 at 08:00; Stop 07/22/16 at 10:36; Status DC Quetiapine Fumarate (SEROquel) 37.5 mg TIDWMEALS PO Last administered on 17:05; Start 07/22/16 at 12:00 Active Scripts Active Reported Protonix (Pantoprazole Sodium) 40 Mg Tablet.dr 1 Tab PO DAILY Keppra (Levetiracetam) 500 Mg Tablet 1 Tab PO BID Hydroxyzine Pamoate 25 Mg Capsule 1 Cap PO PRN QHS PRN Buspirone Hcl 10 Mg Tablet 1 Tab PO TID Seroquel (Quetiapine Fumarate) 50 Mg Tablet 1 Tab PO QHS Analgesic [place] (Methyl Salicylate/Menthol) 29 Gm Oint...g. 29 Gm TP QIDPRN PRN Famotidine 20 Mg Tablet 1 Tab PO DAILY Vitamin D3 (Cholecalciferol (Vitamin D3)) 5,000 Unit Tablet 50,000 Unit PO WEEKLY Alprazolam 0.5 Mg Tablet 0.5 Mg PO PRN Q6HRS PRN LAST DOSE GIVEN: DATE: TIME: NEXT DOSE DUE: DATE: TIME: Seroquel (Quetiapine Fumarate) 50 Mg Tablet 25 Mg PO BID92 LAST DOSE GIVEN: DATE: TIME: NEXT DOSE DUE: DATE: TIME: Levbid (Hyoscyamine Sulfate) 0.375 Mg Tab.er.12h 0.125 Mg PO Q2HR PRN Dicyclomine Hcl 10 Mg Capsule 10 Mg PO TID PRN Tylenol (Acetaminophen) 325 Mg Tablet 650 Mg PO Q6HRS PRN LAST DOSE GIVEN: DATE: TIME: NEXT DOSE DUE: DATE: TIME: Escitalopram Oxalate 20 Mg Tablet 10 Mg PO DAILY Aricept (Donepezil Hcl) 10 Mg Tablet 20 Mg PO DAILY Dexamethasone 4 Mg Tablet 4 Mg PO DAILY Colace (Docusate Sodium) 100 Mg Capsule 100 Mg PO DAILY MARJ FELICIANO MD July 23, 2016 21:03
[2016-07-23] MEDS: QUEtiapine 50 MG TABLET. PO SCH (21:25)
--- NOTE | 2016-07-24 00:06 | PN ---
DATE: 07/21/2016 This is a late entry for 07/21/2016, covers the elements not covered in my initial note. SUBJECTIVE: The patient remains confused, wanders into other patients' beds, difficult when he has to be showered by nursing staff, needs 2 staff members to assist with this. REVIEW OF SYSTEMS: No CV, , pulmonary, eye, ENT system symptoms on review. Reliability poor. MENTAL STATUS EXAM: Oriented to himself. Insight, judgment, recent and remote memory, attention, concentration, fund of knowledge poor, consistent with his diagnosis mentioned in my initial note. PLAN: Continue current psychotropics. Adjust further as clinically indicated. MAN Fuentes FELICIANO MD DR: STACEY/fe JOB#: [id number] / [id number]
--- NOTE | 2016-07-24 00:09 | PN ---
DATE: 07/22/2016 PSYCHIATRIC PROGRESS NOTE This is a late entry of 07/22/2016 covers elements not covered in my initial note. SUBJECTIVE: The patient was staff treatment team meeting with the entire team morning of 07/22/2016 met with him individually evening of 07/22/2016. Sleeping about 6-1/2 hours. Appetite 100% confused, force staff members to shower him, get combative during showers, rest of the time very redirectable. Slept in the quiet room. REVIEW OF SYSTEMS: No CV, , eye, ENT or pulmonary system symptoms on review. Reliability poor. MENTAL STATUS EXAM: Oriented to himself. Insight, judgment, recent and remote memory, attention, concentration, fund of knowledge poor, consistent with his diagnosis. PLAN: Continue current psychotropics. Increase Seroquel from 25 mg 3 times a day to 37.5 mg 3 times a day. Labs on 07/23/2016 awaited. MAN Fuentes FELICIANO MD DR: STACEY/fe JOB#: [id number] / [id number]
[2016-07-24 05:58] VITALS: BP 114/83
[2016-07-24] MEDS: DEXAMETHASONE 4 MG TABLET PO SCH (08:01)
[2016-07-24] MEDS: PANTOPRAZOLE 40 MG TABLET. PO SCH (08:02)
[2016-07-24] MEDS: DONEPEZIL HCL 10 MG TABLET PO SCH (08:02)
[2016-07-24] MEDS: levETIRAcetam 500 MG TABLET PO SCH ×2 (08:02→19:24)
[2016-07-24] MEDS: FAMOTIDINE 20 MG TABLET PO SCH (08:02)
[2016-07-24] MEDS: DOCUSATE SODIUM 100 MG CAPSULE PO SCH (08:02)
[2016-07-24] MEDS: QUEtiapine 25 MG TABLET. PO SCH ×3 (08:02→17:25)
[2016-07-24] MEDS: ESCITALOPRAM 10 MG TABLET. PO SCH (08:02)
[2016-07-24] MEDS: busPIRone 10 MG TABLET. PO SCH ×3 (08:02→19:24)
[2016-07-24 16:27] VITALS: BP 161/79
[2016-07-24] MEDS: QUEtiapine 50 MG TABLET. PO SCH (19:24)
[2016-07-24] MEDS: hydrOXYzine PAMOATE 25 MG CAPSULE PO PRN (19:26)
--- NOTE | 2016-07-24 20:47 | PDOC ---
Exam Tor Demential Exam: Tor Note: Please also refer to the separate dictated note~for this date of service dictated separately.~Patient seen individually. Discussed the patient with Nursing staff reviewed the chart.~Reviewed interim history and current functioning. Reviewed vital signs,~Labs/ Radiology~and current medications noted below. Continue current treatment with the changes noted in the dictated addendum note Assessment: Vital Signs: Vital Signs Date Time Temp Pulse Resp B/P (MAP) Pulse Ox O2 Delivery O2 Flow Rate FiO2 07/24/16 16:27 67 18 161/79 (106) 07/24/16 05:58 97.2 96 07/19/16 16:07 Room Air I&O Intake and Output 07/24/16 07:00 Intake Total 960 ml Balance 960 ml Intake Oral 960 ml # Voids 1 # Bowel Movements 1 Current Medications: Meds: Current Medications Acetaminophen (Tylenol) 650 mg PRN Q6HRS PRN PO prn Last administered on 13:37; Start 07/12/16 at 09:45 Alprazolam (Xanax) 0.5 mg PRN Q6HRS PRN PO ANXIETY / AGITATION Last administered on 07/19/16 20:17; Start 07/12/16 at 09:45 Buspirone HCl (Buspar) 10 mg TID PO Last administered on 07/24/16 13:11; Start 07/12/16 at 14:00 Dexamethasone (Decadron) 4 mg DAILY PO Last administered on 07/24/16 08:01; Start 07/13/16 at 09:00 Dicyclomine HCl (Bentyl) 10 mg PRN TID PRN PO stomach spasm; Start 07/12/16 at 09:45 Docusate Sodium (Colace) 100 mg DAILY PO Last administered on 07/24/16 08:02; Start 07/13/16 at 09:00 Donepezil HCl (Aricept) 20 mg DAILY PO Last administered on 07/24/16 08:02; Start 07/13/16 at 09:00 Escitalopram Oxalate (Lexapro) 10 mg DAILY PO ; Start 07/13/16 at 09:00; Stop 07/13/16 at 09:00; Status DC Famotidine (Pepcid) 20 mg DAILY PO Last administered on 07/24/16 08:02; Start 07/13/16 at 09:00 Hydroxyzine Pamoate (Vistaril) 25 mg PRN QHS PRN PO ITCHING Last administered on 07/12/16 22:34; Start 07/12/16 at 09:45 Levetiracetam (Keppra) 500 mg BID PO Last administered on 07/24/16 08:02; Start 07/12/16 at 21:00 Multi-Ingredient Ointment (Analgesic [place]) 29 neil QIDPRN PRN TP MUSCLE PAIN; Start 07/12/16 at 09:45 Pantoprazole Sodium (Protonix) 40 mg DAILY PO Last administered on 07/24/16 08 :02; Start 07/13/16 at 09:00 Quetiapine Fumarate (SEROquel) 50 mg QHS PO Last administered on 07/23/16 21: 25; Start 07/12/16 at 21:00 Quetiapine Fumarate (SEROquel) 25 mg BID92 PO ; Start 07/12/16 at 14:00; Stop 07/12/16 at 14:00; Status DC Vitamin D (Vitamin D3) 50,000 unit WEEKLY PO Last administered on 07/19/16 09: 35; Start 07/19/16 at 09:00 Hyoscyamine (Anaspaz) 0.125 mg PRN Q2HR PRN PO SECRETIONS; Start 07/12/16 at 10: 15 Escitalopram Oxalate (Lexapro) 10 mg DAILY PO Last administered on 07/24/16 08 :02; Start 07/13/16 at 09:00 Quetiapine Fumarate (SEROquel) 25 mg BID92 PO Last administered on 07/20/16 13 :19; Start 07/12/16 at 14:00; Stop 07/20/16 at 18:08; Status DC Acetaminophen (Tylenol) 650 mg PRN Q6HRS PRN PO PAIN / TEMP; Start 07/12/16 at 11:30; Status UNV Multi-Ingredient Ointment (Analgesic [place]) 1 neil PRN QID PRN TP MUSCLE PAIN; Start 07/12/16 at 11:30; Status UNV Al Hydroxide/Mg Hydroxide (Mylanta Plus Xs) 15 ml PRN AFTMEALHC PRN PO DYSPEPSIA; Start 07/12/16 at 11:30 Magnesium Hydroxide (Milk Of Magnesia) 2,400 mg PRN QHS PRN PO CONSTIPATION; Start 07/12/16 at 11:30 Olanzapine (Zyprexa Zydis) 2.5 mg PRN QID PRN PO PSYCHOSIS Last administered on 07/24/16 13:11; Start 07/18/16 at 18:15 Quetiapine Fumarate (SEROquel) 25 mg TIDWMEALS PO Last administered on 08:37; Start 07/21/16 at 08:00; Stop 07/22/16 at 10:36; Status DC Quetiapine Fumarate (SEROquel) 37.5 mg TIDWMEALS PO Last administered on 13:11; Start 07/22/16 at 12:00 Active Scripts Active Reported Protonix (Pantoprazole Sodium) 40 Mg Tablet.dr 1 Tab PO DAILY Keppra (Levetiracetam) 500 Mg Tablet 1 Tab PO BID Hydroxyzine Pamoate 25 Mg Capsule 1 Cap PO PRN QHS PRN Buspirone Hcl 10 Mg Tablet 1 Tab PO TID Seroquel (Quetiapine Fumarate) 50 Mg Tablet 1 Tab PO QHS Analgesic [place] (Methyl Salicylate/Menthol) 29 Gm Oint...g. 29 Gm TP QIDPRN PRN Famotidine 20 Mg Tablet 1 Tab PO DAILY Vitamin D3 (Cholecalciferol (Vitamin D3)) 5,000 Unit Tablet 50,000 Unit PO WEEKLY Alprazolam 0.5 Mg Tablet 0.5 Mg PO PRN Q6HRS PRN LAST DOSE GIVEN: DATE: TIME: NEXT DOSE DUE: DATE: TIME: Seroquel (Quetiapine Fumarate) 50 Mg Tablet 25 Mg PO BID92 LAST DOSE GIVEN: DATE: TIME: NEXT DOSE DUE: DATE: TIME: Levbid (Hyoscyamine Sulfate) 0.375 Mg Tab.er.12h 0.125 Mg PO Q2HR PRN Dicyclomine Hcl 10 Mg Capsule 10 Mg PO TID PRN Tylenol (Acetaminophen) 325 Mg Tablet 650 Mg PO Q6HRS PRN LAST DOSE GIVEN: DATE: TIME: NEXT DOSE DUE: DATE: TIME: Escitalopram Oxalate 20 Mg Tablet 10 Mg PO DAILY Aricept (Donepezil Hcl) 10 Mg Tablet 20 Mg PO DAILY Dexamethasone 4 Mg Tablet 4 Mg PO DAILY Colace (Docusate Sodium) 100 Mg Capsule 100 Mg PO DAILY Diagnosis: Problems: (1) Anxiety disorder (2) Dementia in Alzheimer's disease with delusions (3) Dementia in Alzheimer's disease with depression (4) Dementia, vascular, with delusions (5) Dementia, vascular, with depression (6) Impulse control disorder MARJ FELICIANO MD July 24, 2016 20:47
[2016-07-25] MEDS: ALPRAZolam 0.5 MG TABLET PO PRN (00:34)
[2016-07-25 06:34] VITALS: BP 138/99
[2016-07-25] MEDS: PANTOPRAZOLE 40 MG TABLET. PO SCH (08:08)
[2016-07-25] MEDS: levETIRAcetam 500 MG TABLET PO SCH ×2 (08:08→18:26)
[2016-07-25] MEDS: DONEPEZIL HCL 10 MG TABLET PO SCH (08:08)
[2016-07-25] MEDS: DOCUSATE SODIUM 100 MG CAPSULE PO SCH (08:08)
[2016-07-25] MEDS: ESCITALOPRAM 10 MG TABLET. PO SCH (08:09)
[2016-07-25] MEDS: busPIRone 10 MG TABLET. PO SCH ×3 (08:09→18:26)
[2016-07-25] MEDS: FAMOTIDINE 20 MG TABLET PO SCH (08:09)
[2016-07-25] MEDS: QUEtiapine 25 MG TABLET. PO SCH ×3 (08:09→15:44)
[2016-07-25] MEDS: DEXAMETHASONE 4 MG TABLET PO SCH (08:09)
[2016-07-25] MEDS ORDERED: MAGN2400 PO (14:36)
[2016-07-25] MEDS ORDERED: MAG355OR12 PO (14:37)
[2016-07-25] MEDS ORDERED: OLAN5TAB7 PO (14:38)
[2016-07-25 16:05] VITALS: BP 151/82
[2016-07-25] MEDS: QUEtiapine 50 MG TABLET. PO SCH (18:26)
--- NOTE | 2016-07-25 19:40 | PDOC ---
Exam Tor Demential Exam: Tor Note: Please also refer to the separate dictated note~for this date of service dictated separately.~Patient seen individually. Discussed the patient with Nursing staff reviewed the chart.~Reviewed interim history and current functioning. Reviewed vital signs,~Labs/ Radiology~and current medications noted below. Continue current treatment with the changes noted in the dictated addendum note Assessment: Vital Signs: Vital Signs Date Time Temp Pulse Resp B/P (MAP) Pulse Ox O2 Delivery O2 Flow Rate FiO2 07/25/16 16:05 97.5 95 18 151/82 (105) 95 07/19/16 16:07 Room Air I&O Intake and Output 07/25/16 07:00 Intake Total 480 ml Balance 480 ml Intake Oral 480 ml # Bowel Movements 2 Current Medications: Meds: Current Medications Acetaminophen (Tylenol) 650 mg PRN Q6HRS PRN PO prn Last administered on 13:37; Start 07/12/16 at 09:45 Alprazolam (Xanax) 0.5 mg PRN Q6HRS PRN PO ANXIETY / AGITATION Last administered on 07/25/16 00:34; Start 07/12/16 at 09:45 Buspirone HCl (Buspar) 10 mg TID PO Last administered on 07/25/16 18:26; Start 07/12/16 at 14:00 Dexamethasone (Decadron) 4 mg DAILY PO Last administered on 07/25/16 08:09; Start 07/13/16 at 09:00 Dicyclomine HCl (Bentyl) 10 mg PRN TID PRN PO stomach spasm; Start 07/12/16 at 09:45 Docusate Sodium (Colace) 100 mg DAILY PO Last administered on 07/25/16 08:08; Start 07/13/16 at 09:00 Donepezil HCl (Aricept) 20 mg DAILY PO Last administered on 07/25/16 08:08; Start 07/13/16 at 09:00 Escitalopram Oxalate (Lexapro) 10 mg DAILY PO ; Start 07/13/16 at 09:00; Stop 07/13/16 at 09:00; Status DC Famotidine (Pepcid) 20 mg DAILY PO Last administered on 07/25/16 08:09; Start 07/13/16 at 09:00 Hydroxyzine Pamoate (Vistaril) 25 mg PRN QHS PRN PO ITCHING Last administered on 07/24/16 19:26; Start 07/12/16 at 09:45 Levetiracetam (Keppra) 500 mg BID PO Last administered on 07/25/16 18:26; Start 07/12/16 at 21:00 Multi-Ingredient Ointment (Analgesic [place]) 29 neil QIDPRN PRN TP MUSCLE PAIN; Start 07/12/16 at 09:45 Pantoprazole Sodium (Protonix) 40 mg DAILY PO Last administered on 07/25/16 08 :08; Start 07/13/16 at 09:00 Quetiapine Fumarate (SEROquel) 50 mg QHS PO Last administered on 07/25/16 18: 26; Start 07/12/16 at 21:00 Quetiapine Fumarate (SEROquel) 25 mg BID92 PO ; Start 07/12/16 at 14:00; Stop 07/12/16 at 14:00; Status DC Vitamin D (Vitamin D3) 50,000 unit WEEKLY PO Last administered on 07/19/16 09: 35; Start 07/19/16 at 09:00 Hyoscyamine (Anaspaz) 0.125 mg PRN Q2HR PRN PO SECRETIONS; Start 07/12/16 at 10: 15 Escitalopram Oxalate (Lexapro) 10 mg DAILY PO Last administered on 07/25/16 08 :09; Start 07/13/16 at 09:00 Quetiapine Fumarate (SEROquel) 25 mg BID92 PO Last administered on 07/20/16 13 :19; Start 07/12/16 at 14:00; Stop 07/20/16 at 18:08; Status DC Acetaminophen (Tylenol) 650 mg PRN Q6HRS PRN PO PAIN / TEMP; Start 07/12/16 at 11:30; Status UNV Multi-Ingredient Ointment (Analgesic [place]) 1 neil PRN QID PRN TP MUSCLE PAIN; Start 07/12/16 at 11:30; Status UNV Al Hydroxide/Mg Hydroxide (Mylanta Plus Xs) 15 ml PRN AFTMEALHC PRN PO DYSPEPSIA; Start 07/12/16 at 11:30 Magnesium Hydroxide (Milk Of Magnesia) 2,400 mg PRN QHS PRN PO CONSTIPATION; Start 07/12/16 at 11:30 Olanzapine (Zyprexa Zydis) 2.5 mg PRN QID PRN PO PSYCHOSIS Last administered on 07/25/16 02:19; Start 07/18/16 at 18:15 Quetiapine Fumarate (SEROquel) 25 mg TIDWMEALS PO Last administered on 08:37; Start 07/21/16 at 08:00; Stop 07/22/16 at 10:36; Status DC Quetiapine Fumarate (SEROquel) 37.5 mg TIDWMEALS PO Last administered on 15:44; Start 07/22/16 at 12:00 Active Scripts Active Reported Olanzapine Odt (Olanzapine) 5 Mg Tab.rapdis 2.5 Mg PO PRN Q2HR PRN Maalox Maximum Strength Susp (Mag Hydrox/Al Hydrox/Simeth) 355 Ml Oral.susp 15 Ml PO PRN AFTMEALHC PRN Milk Of Magnesia (Magnesium Hydroxide) 2,400 Mg/10 Ml Oral.susp 2,400 Mg PO PRN QHS PRN Protonix (Pantoprazole Sodium) 40 Mg Tablet.dr 1 Tab PO DAILY Keppra (Levetiracetam) 500 Mg Tablet 1 Tab PO BID Hydroxyzine Pamoate 25 Mg Capsule 1 Cap PO PRN QHS PRN Buspirone Hcl 10 Mg Tablet 1 Tab PO TID Seroquel (Quetiapine Fumarate) 50 Mg Tablet 1 Tab PO QHS Analgesic [place] (Methyl Salicylate/Menthol) 29 Gm Oint...g. 29 Gm TP QIDPRN PRN Famotidine 20 Mg Tablet 1 Tab PO DAILY Vitamin D3 (Cholecalciferol (Vitamin D3)) 5,000 Unit Tablet 50,000 Unit PO WEEKLY Alprazolam 0.5 Mg Tablet 0.5 Mg PO PRN Q6HRS PRN LAST DOSE GIVEN: DATE: TIME: NEXT DOSE DUE: DATE: TIME: Seroquel (Quetiapine Fumarate) 50 Mg Tablet 25 Mg PO BID92 LAST DOSE GIVEN: DATE: TIME: NEXT DOSE DUE: DATE: TIME: Levbid (Hyoscyamine Sulfate) 0.375 Mg Tab.er.12h 0.125 Mg PO Q2HR PRN Dicyclomine Hcl 10 Mg Capsule 10 Mg PO TID PRN Tylenol (Acetaminophen) 325 Mg Tablet 650 Mg PO Q6HRS PRN LAST DOSE GIVEN: DATE: TIME: NEXT DOSE DUE: DATE: TIME: Escitalopram Oxalate 20 Mg Tablet 10 Mg PO DAILY Aricept (Donepezil Hcl) 10 Mg Tablet 20 Mg PO DAILY Dexamethasone 4 Mg Tablet 4 Mg PO DAILY Colace (Docusate Sodium) 100 Mg Capsule 100 Mg PO DAILY MARJ FELICIANO MD July 25, 2016 19:40
[2016-07-25] MEDS ORDERED: MIRTAZAPINE 7.5 MG TABLET. PO SCH (21:00)
[2016-07-26] MEDS ORDERED: MIRT15TA PO (01:10)
[2016-07-26] MEDS: DEXAMETHASONE 4 MG TABLET PO SCH (08:02)
[2016-07-26] MEDS: levETIRAcetam 500 MG TABLET PO SCH (08:02)
[2016-07-26] MEDS: DOCUSATE SODIUM 100 MG CAPSULE PO SCH (08:03)
[2016-07-26] MEDS: ESCITALOPRAM 10 MG TABLET. PO SCH (08:03)
[2016-07-26] MEDS: DONEPEZIL HCL 10 MG TABLET PO SCH (08:03)
[2016-07-26] MEDS: busPIRone 10 MG TABLET. PO SCH ×2 (08:03→12:01)
[2016-07-26] MEDS: PANTOPRAZOLE 40 MG TABLET. PO SCH (08:03)
[2016-07-26] MEDS: QUEtiapine 25 MG TABLET. PO SCH ×2 (08:03→12:01)
[2016-07-26] MEDS: FAMOTIDINE 20 MG TABLET PO SCH (08:03)
[2016-07-26] MEDS: CHOLECALCIFEROL (VITAMIN D3) 50,000 UNIT CAPSULE PO SCH (08:04)
--- NOTE | 2016-07-26 22:47 | PN ---
DATE: 07/24/2016 This is late entry of 07/24/2016, covers elements not covered in my initial note. SUBJECTIVE: The patient remains confused, combative in the morning, hit several staff members, received Zyprexa x 1, did well the rest of the afternoon. REVIEW OF SYSTEMS: No CV, , pulmonary, eye, ENT system symptoms on review. Reliability poor. MENTAL STATUS EXAMINATION: Oriented to himself. Insight, judgment, recent and remote memory, attention, concentration, fund of knowledge poor, consistent with his diagnosis mentioned in my initial note. PLAN: Continue psychotropics mentioned in my initial note, adjust further as clinically indicated. MAN Fuentes FELICIANO MD DR: STACEY/fe JOB#: [id number] / [id number]
--- NOTE | 2016-07-26 22:51 | PN ---
DATE: 07/25/2016 PSYCHIATRIC PROGRESS NOTE This is late entry of 07/25/2016, covers elements not covered in my initial note. SUBJECTIVE: The patient remains confused, had to be placed in the west hallway to isolate him from the others since excessive sensory stimuli makes his agitation worse. He has been calm most of the day, was quite agitated, combative the previous evening, kicking staff, biting staff. REVIEW OF SYSTEMS: I met with him individually in his room. He was on the floor on a mattress where I sat with him. No CV, , eye, ENT or pulmonary system symptoms on review. MENTAL STATUS EXAMINATION: Oriented to himself. Insight, judgment, recent and remote memory, attention, concentration, fund of knowledge poor, consistent with his diagnosis mentioned in my initial note. LABORATORY DATA: Reviewed. PLAN: Start Remeron 7.5 mg p.o. at bedtime, continue rest of the psychotropics mentioned in my initial note, adjust further as clinically indicated. MAN Fuentes FELICIANO MD DR: STACEY/fe JOB#: [id number] / [id number]
--- NOTE | 2016-07-27 07:25 | PN ---
DATE: 07/23/2016 PSYCHIATRIC PROGRESS NOTE This is late entry of 07/23/2016, covers elements not covered in my initial note. SUBJECTIVE: The patient remains confused, anxious, restless, needs frequent redirections. No PRNs noted, cooperative with labs on 07/23/2016, getting into other patients' beds. REVIEW OF SYSTEMS: No CV, , eye, ENT system symptoms on review. Reliability poor. MENTAL STATUS EXAMINATION: Oriented to himself. Insight, judgment, recent and remote memory, attention, concentration, fund of knowledge poor, consistent with his diagnosis mentioned in my initial note. PLAN: Continue current psychotropics, Aricept, BuSpar, Keppra, Lexapro, Seroquel, Xanax p.r.n., Vistaril p.r.n., Zyprexa p.r.n., adjust further as clinically indicated, medications listed in my initial note. MARJ FELICIANO MD DR: STACEY/fe JOB#: [id number] / [id number]
--- NOTE | 2016-07-27 19:14 | DS ---
DATE OF DISCHARGE: 07/26/2016 DISCHARGE SUMMARY/PSYCHIATRIC PROGRESS NOTE This is late entry of 07/26/2016, covers elements not covered in my initial note. REASON FOR ADMISSION: Please refer to the admission history for details. Briefly, the patient is a 70-year-old male [facility] on account of increasing psychotic symptoms within the context of his dementia with delusion, depression. He became medically compromised and was transferred to the ICU for his seizures. This was treated on Keppra and returned back to our unit for this current stabilization. He was extremely confused, agitated, very difficult to treat and multiple changes were initiated in his psychotropics. He finally seemed to respond to a combination of Aricept 20 mg a day, BuSpar 10 t.i.d., Remeron 7.5 at bedtime, Keppra 500 b.i.d., Lexapro 10 mg a day, Seroquel 37.5 mg t.i.d. with meals, 50 mg at bedtime, Xanax p.r.n., Vistaril p.r.n. and Zyprexa p.r.n. REVIEW OF SYSTEMS: Prior to discharge on 07/26/2016 no CV, , pulmonary, eye, ENT system symptoms on review. Reliability poor. MENTAL STATUS EXAMINATION: Oriented to himself. Insight, judgment, recent and remote memory, attention, concentration, fund of knowledge poor, consistent with his diagnosis. FINAL DIAGNOSES: Major neurocognitive disorder, Alzheimer, vascular with depression, delusion, behavioral disturbance; anxiety disorder, unspecified; impulse control disorder, unspecified. Rest diagnoses unchanged from admission. DISCHARGE MEDICATIONS: Please refer to the [facility]AD. DISCHARGE INSTRUCTIONS: Outpatient psychiatric and medical followup at the prison. MAN Fuentes FELICIANO MD DR: STACEY/fe JOB#: [id number] / [id number]
== END 2016-07-26 13:00 | DRG 56 ==
LOC: GEROPSY 08:38
PROVIDERS: ADMIT Psychiatry & Neurology Psychiatry; ATTEND Psychiatry & Neurology Psychiatry
DX: G30.9 Alzheimer's disease, unspecified (principal); E43 Unspecified severe protein-calorie malnutrition; F02.81 Dementia in other diseases classified elsewhere, unspecified severity, with behavioral disturbance; F01.51 Vascular dementia, unspecified severity, with behavioral disturbance; F41.9 Anxiety disorder, unspecified; F63.9 Impulse disorder, unspecified; G40.909 Epilepsy, unspecified, not intractable, without status epilepticus; Z66 Do not resuscitate; K21.9 Gastro-esophageal reflux disease without esophagitis; F32.9 Major depressive disorder, single episode, unspecified; K59.09 Other constipation; M54.9 Dorsalgia, unspecified; G89.29 Other chronic pain; Z79.899 Other long term (current) drug therapy; Z86.73 Personal history of transient ischemic attack (TIA), and cerebral infarction without residual deficits; Z68.20 Body mass index [BMI] 20.0-20.9, adult; Z88.7 Allergy status to serum and vaccine; Z88.8 Allergy status to other drugs, medicaments and biological substances
CPT/HCPCS: 36415; 80053; 80177; 81001; 83605; 83735; 85007; 85027; J8540; Q0177